=== PATIENT | male | born 1955 | race Caucasian/White ===

== ENCOUNTER 2018-10-31 13:27 | Emergency (ER) | payer OTHER, SELFPAY ==
[~2018-10-31] VITALS: Ht 180.3 cm; Wt 88.0 kg
[2018-10-31] MEDS ORDERED: CYCLOBENZAPRINE 10 MG TABLET. PO ONE (14:15)
--- NOTE | 2018-10-31 14:25 | PHYS DOC ---
Past Medical History Past Medical History: Hypothyroid, Other Additional Past Medical Histor: CHRONIC L LEG PAIN (KRISTINA PATTERSON APRN) Past Surgical History: No Surgical History (KRISTINA PATTERSON APRN) Smoking: Cigarettes, 1 Pack Per Day Additional Information: 1 PPD Alcohol Use: None Drug Use: None (KRISTINA PATTERSON APRN) Adult General Chief Complaint Chief Complaint: LOWER EXT PAIN HPI HPI Patient is a 63 year old male who presents with left groin pain that worsened last night but has been ongoing for 3 weeks. Patient took a Percocet last night in order to be able sleep however upon waking this morning his pain is still a 10 out of 10. He said it hurts to straighten the leg. Has not tried any treatment at home besides the Percocet. States that the pain is getting worse. (KRISTINA PATTERSON APRN) Review of Systems Review of Systems Constitutional: Denies fever or chills [] Eyes: Denies change in visual acuity, redness, or eye pain [] HENT: Denies nasal congestion or sore throat [] Respiratory: Denies cough or shortness of breath [] Cardiovascular: No additional information not addressed in HPI [] GI: Denies abdominal pain, nausea, vomiting, bloody stools or diarrhea [] : Denies dysuria or hematuria [] Musculoskeletal: Denies back pain or joint pain but left groin pain that radiates down the left leg. Integument: Denies rash or skin lesions [] Neurologic: Denies headache, focal weakness or sensory changes [] Endocrine: Denies polyuria or polydipsia [] Complete systems were reviewed and found to be within normal limits, except as documented in this note. (KRISTINA PATTERSON APRN) Current Medications Current Medications Current Medications Medications (Trade) Dose Ordered Sig/Darwin Start Time Stop Time Status Last Admin Dose Admin Acetaminophen/ Hydrocodone Bitart (Lortab 5/325) 1 tab 1X ONCE 10/31/18 15:30 10/31/18 15:31 DC 10/31/18 15:35 1 TAB Cyclobenzaprine HCl (Flexeril) 10 mg 1X ONCE 10/31/18 14:15 10/31/18 14:16 DC 10/31/18 14:01 10 MG Ketorolac Tromethamine (Toradol 30mg Vial) 30 mg 1X ONCE 10/31/18 15:30 10/31/18 15:31 DC 10/31/18 15:34 30 MG (KRISTINA LOZANO DO) Allergies Allergies Allergies Coded Allergies Type Severity Reaction Last Updated Verified No Known Drug Allergies 10/31/18 No (KRISTINA LOZANO DO) Physical Exam Physical Exam Constitutional: Well developed, well nourished, no acute distress, non-toxic appearance. [] HENT: Normocephalic, atraumatic, bilateral external ears normal, oropharynx moist, no oral exudates, nose normal. [] Eyes: PERRLA, EOMI, conjunctiva normal, no discharge. [] Neck: Normal range of motion, no tenderness, supple, no stridor. [] Cardiovascular:Heart rate regular rhythm, no murmur [] Lungs & Thorax: Bilateral breath sounds clear to auscultation [] Abdomen: Soft, no tenderness, no masses, no pulsatile masses. [] Skin: Warm, dry, no erythema, no rash. [] Back: No tenderness, no CVA tenderness. [] Extremities: No tenderness with exception of left groin pain that is tender to palpation, no cyanosis, no clubbing, ROM intact, no edema. [] Neurologic: Alert and oriented X 3, normal motor function, normal sensory function, no focal deficits noted. [] Psychologic: Affect normal, judgement normal, mood normal. [] (KRISTINA PATTERSON APRN) Current Patient Data Vital Signs Vital Signs Date Time Temp Pulse Resp B/P (MAP) Pulse Ox O2 Delivery O2 Flow Rate FiO2 10/31/18 16:28 52 16 106/63 (77) 94 Room Air 10/31/18 13:29 98.4 98.4 (KRISTINA LOZANO DO) EKG EKG [] (KRISTINA PATTERSON APRN) Radiology/Procedures Radiology/Procedures []PATIENT: DONAVAN AWADACCOUNT: [id number]#: [id number] : 1955 LOCATION: ER AGE: 63 SEX: M EXAM STATUS: REG ER ORD. PHYSICIAN: KRISTINA PATTERSON APRN REASON: left leg pain PROCEDURE: LEFT FEMUR XRAY AP and lateral left femur radiographs 10/31/2018 CLINICAL HISTORY: Left leg pain. 3 AP and 2 lateral digital radiographs of the left femur were obtained. No fracture or dislocation of the left femur is seen. Mild degenerative changes are seen involving the left hip. Mild degenerative changes are seen involving the left knee. IMPRESSION: No acute osseous abnormality is seen. Electronically signed by: Khris Bardales MD (10/31/2018 2:43 PM) [facility] PATIENT: DONAVAN AWAD ACCOUNT: [id number] : 1955 LOCATION: ER AGE: 63 SEX: M EXAM STATUS: REG ER ORD. PHYSICIAN: KRISTINA PATTERSON APRN REASON: r/o torsion/UPPER LT LEG PAIN PROCEDURE: TESTICULAR/SCROTUM Scrotal ultrasound 10/31/2018 CLINICAL HISTORY: Scrotal pain and swelling. TECHNIQUE: Using a combination of real-time ultrasound imaging and color-flow and pulse Doppler imaging techniques, duplex evaluation of the scrotal sac and its contents was performed. Multiple images were obtained. FINDINGS: Both testicles are within normal limits in size and echogenicity. The right testicle measures 4.5 x 2.9 x 2.5 cm in longitudinal, transverse, and AP dimensions. The left testicle measures 4.5 x 3.3 x 2.3 cm in size. No focal abnormality of either testicle is seen. Normal color-flow and pulse Doppler imaging to both testicles is noted. Both epididymal heads are within normal limits in size and echogenicity. There are small bilateral hydroceles. No varicocele is seen. IMPRESSION: Small bilateral hydroceles. Otherwise negative study. Electronically signed by: Khris Bardales MD (10/31/2018 3:57 PM) [facility] (KRISTINA PATTERSON APRN) Course & Med Decision Making Course & Med Decision Making Pertinent Labs and Imaging studies reviewed. (See chart for details) Discussed with patient. Will get Xray and give Flexeril to gauge improvement. Flexeril did not improve pain. States that he has had some intermittent L testicle pain for a couple of weeks. Will get ultrasound as well. Ultrasound is negative as well. Will discharge to follow up with [facility] at [facility] and send home with some pain medication. (KRISTINA PATTERSON APRN) Dragon Disclaimer Dragon Disclaimer This electronic medical record was generated, in whole or in part, using a voice recognition dictation system. (KRISTINA PATTERSON APRN) Departure Departure Impression: Primary Impression: Left leg pain Additional Impression: Bilateral hydrocele Disposition: HOME, SELF-CARE Condition: STABLE Referrals: KHANH MOFFETT II, MD Additional Instructions: Please follow up with Dr. Moffett. Come back to ER if you have any additional concerns. Scripts Hydrocodone/Apap 5-325 (NORCO 5-325 TABLET) 1 Each Tablet 1 TAB PO PRN Q6HRS PRN for PAIN for 5 Days, #12 TAB 0 Refills Prov: KRISTINA PATTERSON APRN 10/31/18 Attending Signature Attending Signature I have reviewed the PA/RECREATION ASSISTANT's note and plan of care. I was available for consultation as needed during the patient's visit in the emergency department. I agree with the clinical impression, plan, and disposition. (KRISTINA LOZANO DO) Problem Qualifiers KRISTINA PATTERSON APRN October 31, 2018 14:25 KRISTINA LOZANO DO November 02, 2018 01:40
--- NOTE | 2018-10-31 14:46 | RAD ---
AP and lateral left femur radiographs 10/31/2018 CLINICAL HISTORY: Left leg pain. 3 AP and 2 lateral digital radiographs of the left femur were obtained. No fracture or dislocation of the left femur is seen. Mild degenerative changes are seen involving the left hip. Mild degenerative changes are seen involving the left knee. IMPRESSION: No acute osseous abnormality is seen. Electronically signed by: Khris Bardales MD (10/31/2018 2:43 PM) [facility]
[2018-10-31] MEDS ORDERED: KETOROLAC 30 MG/ML VIAL. IM ONE (15:30)
[2018-10-31] MEDS ORDERED: HYDROcodone/APAP 5/325MG 1 TAB TABLET PO ONE (15:30)
--- NOTE | 2018-10-31 16:00 | RAD ---
Scrotal ultrasound 10/31/2018 CLINICAL HISTORY: Scrotal pain and swelling. TECHNIQUE: Using a combination of real-time ultrasound imaging and color-flow and pulse Doppler imaging techniques, duplex evaluation of the scrotal sac and its contents was performed. Multiple images were obtained. FINDINGS: Both testicles are within normal limits in size and echogenicity. The right testicle measures 4.5 x 2.9 x 2.5 cm in longitudinal, transverse, and AP dimensions. The left testicle measures 4.5 x 3.3 x 2.3 cm in size. No focal abnormality of either testicle is seen. Normal color-flow and pulse Doppler imaging to both testicles is noted. Both epididymal heads are within normal limits in size and echogenicity. There are small bilateral hydroceles. No varicocele is seen. IMPRESSION: Small bilateral hydroceles. Otherwise negative study. Electronically signed by: Khris Bardales MD (10/31/2018 3:57 PM) [facility]
[2018-10-31] MEDS ORDERED: HYDR-3164 PO (16:22)
[2018-10-31 16:28] VITALS: BP 106/63
[2018-11-02] MEDS ORDERED: B12/1TAB3 PO (13:20)
[2018-11-02] MEDS ORDERED: TEST5GEL TP (13:20)
== END 2018-10-31 16:34 | disposition home or self-care (01) ==
LOC: ER 13:27
DX: N43.2 Other hydrocele (principal); M79.605 Pain in left leg; E03.9 Hypothyroidism, unspecified; G89.29 Other chronic pain; F17.210 Nicotine dependence, cigarettes, uncomplicated
CPT/HCPCS: 73552; 76870; 96372; 99284; J1885

== ENCOUNTER → 2018-11-02 | Outpatient (CLI) | payer OTHER ==
[2018-10-31 16:28] VITALS: BP 106/63
[~2018-11-02] MED LIST: B12/1TAB3 PO; BUPIVACAINE MPF 0.5% 10 ML VIAL for KCIC. IM ONE; CONTRAST GIVEN. MC PRN; HYDR-3164 PO; IOHEXOL 300 MG/ML 50 ML VIAL. INT ART ONE; LIDOCAINE 1% Multi-Dose 20 ML VIAL. ID ONE; TEST5GEL TP; methylPREDNISolone SOD SUCC PF 40 MG/ML VIAL. IM ONE
--- NOTE | 2018-11-02 14:07 | KCIC ---
Therapeutic left hip injection using fluoroscopic guidance dated 11/02/2018: Indication: Left hip pain. hip pain.. Technique: The procedure was explained to the patient as were potential risks. All questions were answered. Informed written consent was obtained. The left hip was prepped and draped in the usual sterile manner. Following administration of local anesthetic, a 22-gauge spinal needle was advanced into the hip joint without difficulty, with care taken to avoid the vascular structures. Stylet was removed and following negative aspiration, a mixture of 5 cc Omnipaque-300, 2 cc (80 mg) Depo-Medrol and 8 cc 0.5% bupivacaine were injected without difficulty. Fluoroscopy demonstrates uniform and satisfactory distribution of the injection through the hip. The needle was removed. There was good hemostasis at the injection site. The patient left in stable condition without immediate complication. The patient was given postprocedural instructions, instructed to contact us or the emergency room if there are any complications. 13 seconds fluoroscopic time used. One image. Impression: Successful left hip therapeutic injection. Electronically signed by: Adolfo Bacon MD (11/02/2018 2:04 PM) [facility]
== END | disposition home or self-care (01) ==
LOC: KCIC 12:13
PROVIDERS: ATTEND Orthopaedic Surgery Sports Medicine
DX: M25.552 Pain in left hip (principal); F17.210 Nicotine dependence, cigarettes, uncomplicated
CPT/HCPCS: 20610; 77002; J2920; Q9967

== ENCOUNTER → 2019-02-10 | Outpatient (CLI) | payer OTHER ==
[~2019-02-10] MED LIST changes: -BUPIVACAINE MPF 0.5% 10 ML VIAL for KCIC. IM ONE; -CONTRAST GIVEN. MC PRN; -IOHEXOL 300 MG/ML 50 ML VIAL. INT ART ONE; -LIDOCAINE 1% Multi-Dose 20 ML VIAL. ID ONE; -methylPREDNISolone SOD SUCC PF 40 MG/ML VIAL. IM ONE
--- NOTE | 2019-02-10 16:00 | KCIC ---
LUMBAR SPINE WO CONTRAST History: Low back pain. Left leg and hip pain. Technique: Multiplanar, multi sequential MR imaging was performed of the lumbar spine. Comparison: None Findings: Normal vertebral body height and alignment. No fracture. Multilevel degenerative endplate changes most prominent L4-L5 and L5-S1. Conus terminates at the normal location. No evidence of nerve root clumping. L1-L2: No canal or neuroforaminal narrowing. L2-L3: Minimal posterior disc bulge. Mild facet arthropathy. No canal or neuroforaminal narrowing. L3-L4: Small posterior disc bulge. Mild to moderate facet arthropathy. No canal or neuroforaminal narrowing. L4-L5: Small posterior disc bulge. Moderate facet arthropathy. Bilateral subarticular recess narrowing with abutment of the descending L5 nerve roots. No canal narrowing. Mild bilateral neural foraminal narrowing. L5-S1: Small central disc protrusion. Slight abutment of the descending left S1 nerve roots within the subarticular recess. Moderate facet arthropathy. Mild neural foraminal narrowing. Impression: 1. Mild multilevel lumbar spondylosis most prominent L4-5 and L5-S1. No significant canal narrowing. 2. L4-L5 and L5-S1 subarticular recess narrowing with abutment of the descending bilateral L5 and left S1 nerve roots. Correlate for radiculopathy. Electronically signed by: Ta Jung DO (02/10/2019 3:57 PM) [facility]
== END | disposition home or self-care (01) ==
LOC: KCIC MRI 15:03
PROVIDERS: ATTEND Family Medicine
DX: M47.817 Spondylosis without myelopathy or radiculopathy, lumbosacral region (principal); M48.07 Spinal stenosis, lumbosacral region; M51.27 Other intervertebral disc displacement, lumbosacral region; M46.87 Other specified inflammatory spondylopathies, lumbosacral region
CPT/HCPCS: 72148

== ENCOUNTER → 2019-03-16 | Outpatient (CLI) | payer OTHER ==
[~2019-03-16] MED LIST changes: +ACET500T68 PO; +IBUP-1027 PO; +LEVO175T5 PO; +TEST200V3 IM; +[UNRECOGNIZED DRUG - OTHER] IM
--- NOTE | 2019-03-17 00:59 | PAIN ---
DATE OF SERVICE: 03/16/2019 INITIAL CONSULTATION FOR PAIN CLINIC CHIEF COMPLAINT: Low back and left lower extremity pain. HISTORY OF PRESENT ILLNESS: This is a 63-year-old male who presents with history of pain in the low back and left lower extremity for about 3 months, not a result of any specific injury or accident he is aware of, but getting worse over time with walking, standing, changing positions, much more noticeable on the left posterior gluteus, posterior lateral thigh, posterior calf, and into the foot as well as the lateral thighs, some in the anterior thigh as well on the left side. The patient reports no symptoms on the right side. The patient describes the pain as constant, stabbing, sharp, throbbing, shooting with numbness and tingling in the leg, burning and aching as well. The patient did have MRI scan of the lumbar spine showing mild multilevel lumbar spondylosis, most prominent at L4-L5 and L5-S1 with a small posterior disk bulge at L4-L5 with abutment of the descending L5 nerve roots. L5-S1 shows slight abutment of the descending left S1 nerve root within the subarticular recess and small central disk protrusion. The patient rates his disability from 0-10, 10 being the worst, 10 in all categories, except life support activities which is 5, 10 in self-care, sexual behavior, occupation, social activity, family and home responsibilities and recreational activities. The patient has tried stretching and strengthening exercises, also had some chiropractic treatment, which was not significantly helpful. He has had no other modalities at this time. PAST MEDICAL HISTORY: Significant for dizziness, arthritis, cigarette smoking, pernicious anemia, and hypothyroidism. PREVIOUS SURGERY: No previous surgery. CURRENT MEDICATIONS: Include vitamin B12, thyroid, testosterone, Lortab, Tylenol, and Motrin. ALLERGIES: The patient has no known drug allergies. FAMILY HISTORY: Significant for no major medical problems or conditions that he is aware of. SOCIAL HISTORY: The patient drinks about 2 alcoholic drinks a year. Smokes about half pack of cigarettes, has for about 10 years. Does not use any illegal, illicit or recreational drugs. He is , lives with his spouse, and lives locally in [place], [place]. REVIEW OF SYSTEMS: The patient's review of systems is positive for those items mentioned in history of present illness. All systems reviewed and otherwise negative. It is complete, full and well documented on the patient's chart. PHYSICAL EXAMINATION: VITAL SIGNS: The patient's blood pressure is 137/79, pulse 64, respirations 18, temperature 98.7 degrees Fahrenheit, height is 5 feet 10 inches, and weight is 193 pounds. GENERAL: The patient is awake, alert, oriented, appropriate, very pleasant demeanor. HEENT: Shows normocephalic, atraumatic. Extraocular movements are intact and symmetrical. Oral cavity: Mucous membranes moist and pink. Dentition is intact. NECK: Shows anterior throat supple without palpable lymphadenopathy noted. Swallow reflex symmetrical. CHEST: Shows normal on inspection. Breath sounds clear to auscultation bilaterally. HEART: Shows S1, S2 clear. No murmurs auscultated. ABDOMEN: Soft, nontender, and nondistended. No palpable organomegaly is noted. No rebound or guarding demonstrated. BACK: Shows spine grossly in the midline. Normal appearing thoracic kyphosis and lumbar lordotic curvature. The patient's lumbar paraspinous muscle shows symmetrical on inspection, on palpation shows some moderate tenderness diffusely, but without radiation. The patient shows good rotational motion of the lumbar spine both laterally greater than 10 degrees as well as extension greater than 10 degrees, forward flexion 45 degrees without significant increasing pain or disability and movement. EXTREMITIES: The patient's lower extremities show deep tendon reflexes 2+ in the patellar, 1+ tendo-calcaneus tendons. Motor exam is approximately 4 on a scale of 5 on the left with dorsiflexion, extension, quadriceps and hamstring flexion and 5/5 on the right. Peripheral pulses are 1+ posterior tibia. No peripheral edema is noted bilaterally. Lower extremities are warm and dry to touch, equal in color and appearance. Straight leg raise noted to be positive on the left at approximately 40 degrees with decrease in knee flexion. Right side is negative. Gaenslen's and Ronnie's maneuvers are negative bilaterally. The patient is able to stand, has difficulty trying to stand on his toes as he loses balance with putting all his weight on his left leg and walks with a slight shuffling gait. SKIN: The patient's skin shows warm and dry, good turgor. No edema. No sores, rashes or bruising throughout. IMPRESSION: 1. This is a 63-year-old male with approximately 3-month history of increasing pain, low back, left lower extremity in a radicular fashion in L4-L5 and L5-S1 dermatomal distribution. 2. Arthritis. 3. Cigarette smoking. PLAN: Options were discussed with the patient including conservative medical management, physical therapies, interventional techniques and he would like to pursue interventional techniques. We discussed a lumbar epidural steroid injection using description as well as anatomical models to describe the procedure. Risks were discussed. We will wait for preauthorization with patient's insurance provider as he would like to proceed with this. For his left L5S1 radiculopathy, we will plan on lumbar epidural steroid injection at L5-S1 level on return. RENATA WU MD DR: DAILY/capo JOB#: [id number] / [id number] VANNESA Mackay MD
== END | disposition home or self-care (01) ==
LOC: PNCL 09:57
PROVIDERS: ATTEND Anesthesiology
DX: M54.17 Radiculopathy, lumbosacral region (principal); F17.210 Nicotine dependence, cigarettes, uncomplicated; M13.88 Other specified arthritis, other site; F10.10 Alcohol abuse, uncomplicated; E03.9 Hypothyroidism, unspecified
CPT/HCPCS: G0463

== ENCOUNTER → 2019-03-23 | Outpatient (CLI) | payer OTHER ==
[~2019-03-23] MED LIST changes: +IOHEXOL 180 MG/ML 10 ML VIAL. ONE; +methylPREDNISolone ACETATE 40 MG/ML VIAL. ONE; +methylPREDNISolone ACETATE 80 MG/ML VIAL. ONE
--- NOTE | 2019-03-23 21:00 | PAIN ---
DATE OF SERVICE: 03/23/2019 PROGRESS NOTE FOR PAIN CLINIC DIAGNOSES: Lumbar radiculopathy with lumbar degenerative disk disease. HISTORY OF PRESENT ILLNESS: The patient is a 63-year-old male who returns for followup status post evaluation and preauthorization for lumbar epidural steroid injection. The patient does obtain that and would like to proceed today. The patient reports still significant pain in the low back, left lower extremity as was previously, posterior gluteus, posterior thigh, posterior calf, radiating, worse with walking, standing, changing positions. The patient reports his pain is a 10 on a scale of 10 at its worst over the past week 10 on average and 9 at its least tingling, burning, stabbing, described as aching, sharp, shooting in the leg on the left side, becoming more constant, more severe with activity. The patient reports it is awakening him about every 3 hours from sleep, reports no new motor or sensory deficits, no new bowel or bladder incontinence. PHYSICAL EXAMINATION: VITAL SIGNS: The patient's blood pressure is 129/87, pulse is 71, respirations 18, temperature is 98.6 degrees Fahrenheit, height is 5 feet 10 inches and weight is 195 pounds. GENERAL: The patient is awake, alert, oriented, appropriate, very pleasant demeanor. HEENT: Shows normocephalic, atraumatic. Extraocular movements are intact and symmetrical. Oral cavity: Mucous membranes are moist and pink. Dentition is intact. NECK: Shows anterior throat supple without palpable lymphadenopathy noted. Swallow reflex symmetrical. CHEST: Shows normal on inspection. Breath sounds clear to auscultation bilaterally. HEART: Shows S1, S2 clear. No murmurs auscultated. ABDOMEN: Soft, nontender, nondistended. No palpable organomegaly is noted. No rebound or guarding demonstrated. BACK: Shows spine grossly in the midline. Normal-appearing thoracic kyphosis, some minor flattening of lumbar lordotic curvature. Lumbar paraspinous muscle shows symmetrical on inspection, with palpation she has some moderate tenderness diffusely in the lower lumbar distribution only. The patient has good rotational motion of lumbar spine both laterally as well as with extension and flexion without significant difficulty. EXTREMITIES: Lower extremities show deep tendon reflexes at 2+ in the patellar, 1+ tendo-calcaneus tendons. Motor exam is approximately 4 on a scale of 5 on the left with dorsiflexion and extension, 5/5 on the right. Peripheral pulses are 1+ posterior tibia. No peripheral edema is noted bilaterally. IMPRESSION: Options were discussed with the patient. The patient's old chart was reviewed, his current medication regimen updated, current review of systems updated today as well. We will proceed with a lumbar epidural steroid injection today with fluoroscopic guidance. Risks were again discussed including, but not limited to bleeding, infection, possibility of epidural hematoma, subsequent neurological compromise, dural puncture, headaches, spinal cord and/or nerve damage, side effects of steroid medication and poor results regarding pain control. The patient understands and wished to proceed. The patient will return to clinic in approximately 2 weeks for followup. He was counseled as to return appointment, activity level and side effects to be aware of. DIAGNOSIS: Lumbar radiculopathy with lumbar degenerative disk disease. PROCEDURE: Lumbar epidural steroid injection, translaminar approach at L5-S1 level using C-arm fluoroscopic guidance under sterile prep and drape using local anesthetic. MEDICATION INJECTED: Total of 120 mg Depo-Medrol plus 10 mL of preservative-free normal saline and 2 mL of contrast. CONDITION AT DISCHARGE: Stable. The patient tolerated the procedure well, had no complications. RENATA WU MD DR: DAILY/capo JOB#: [id number] / [id number]
== END ==
LOC: PNCL 09:30
PROVIDERS: ATTEND Anesthesiology
DX: M51.16 Intervertebral disc disorders with radiculopathy, lumbar region (principal)
CPT/HCPCS: 62323; J1030; J1040; Q9965

== ENCOUNTER → 2019-04-06 | Outpatient (CLI) | payer OTHER ==
--- NOTE | 2019-04-07 00:45 | PAIN ---
DATE OF SERVICE: 04/06/2019 PROGRESS NOTE FOR PAIN CLINIC DIAGNOSIS: Lumbar radiculopathy with lumbar degenerative disk disease. HISTORY OF PRESENT ILLNESS: The patient is a 63-year-old male who returns for followup status post lumbar epidural steroid injection x 1. The patient reports about 60% improvement in low back and left lower extremity pain. The patient reports the pain is returning now and for the first few weeks, it was doing much better. The patient reports no new motor or sensory deficits, no new bowel or bladder incontinence or other complaints. He reports pain in the low back, left lower extremity, posterior gluteus, posterolateral thigh, lateral anterior thigh, lateral posterior calf, tingling, burning, and radiating, becoming more constant with time, walking, standing, changing positions, especially with putting pressure on his left leg when seated. The patient reports that pain is 6 on a scale of 10 at its worst, 5 on average, 5 at its least and is a 5 today. The patient reports no new motor or sensory deficits, no new bowel or bladder incontinence. He has been sleeping better, but it is still awakening him from sleep about every 4 hours. PHYSICAL EXAMINATION: VITAL SIGNS: The patient's blood pressure is 151/91, pulse 64, respirations 18, temperature 98.2 degrees Fahrenheit, height is 5 feet 10 inches, weight is 198 pounds. GENERAL: The patient is awake, alert, oriented, appropriate, very pleasant demeanor. HEENT: Shows normocephalic, atraumatic. Extraocular movements are intact and symmetrical. Oral cavity: Mucous membranes moist and pink. Dentition is intact. NECK: Shows anterior throat supple without palpable lymphadenopathy noted. Swallow reflex is symmetrical. CHEST: Shows normal on inspection. The patient's breath sounds are clear to auscultation bilaterally. HEART: Shows S1, S2 clear. No murmurs auscultated. ABDOMEN: Soft, nontender, nondistended. No palpable organomegaly is noted. No rebound or guarding demonstrated. BACK: Shows spine grossly in the midline. Normal appearing thoracic kyphosis and some slight flattening of lumbar lordotic curvature. Lumbar paraspinous muscle shows symmetrical on inspection, with palpation shows some moderate tenderness diffusely, but only diffusely without significant radiation. EXTREMITIES: The patient's lower extremities show deep tendon reflexes at 2+ in the patellar and tendo calcaneus tendons. Motor exam is approximately 4 on a scale of 5, still on the left with dorsiflexion and extension, 5/5 on the right, but intact. Peripheral pulses are 1+ posterior tibial and equal bilaterally. No peripheral edema is noted. Options were discussed with the patient. The patient's old chart was reviewed, his current medication regimen updated. Current review of systems updated today as well. We will proceed with a lumbar epidural steroid injection today with fluoroscopic guidance. Risks were again discussed including, but not limited to bleeding, infection, possibility of epidural hematoma, subsequent neurologic compromise, dural puncture, headaches, spinal cord and/or nerve damage, side effects of steroid medication and poor results regarding pain control. The patient understands and wished to proceed. The patient will return to clinic in approximately 2 weeks for followup. He was counseled as to return appointment, activity level and side effects to be aware of. DIAGNOSIS: Lumbar radiculopathy with lumbar degenerative disk disease. PROCEDURE: Lumbar epidural steroid injection, translaminar approach, L5-S1 level using C-arm fluoroscopic guidance under sterile prep and drape using local anesthetic. MEDICATION INJECTED: A total of 120 mg Depo-Medrol plus 10 mL of preservative-free normal saline and 2 mL of contrast. CONDITION AT DISCHARGE: Stable. The patient tolerated the procedure well, had no complications. RENATA WU MD DR: DAILY/capo JOB#: [id number] / [id number]
== END ==
LOC: PNCL 12:44
PROVIDERS: ATTEND Anesthesiology
DX: M51.16 Intervertebral disc disorders with radiculopathy, lumbar region (principal)
CPT/HCPCS: 62323; J1030; J1040; Q9965

== ENCOUNTER → 2019-04-20 | Outpatient (CLI) | payer OTHER ==
--- NOTE | 2019-04-20 15:01 | PAIN ---
DATE OF SERVICE: 04/20/2019 PROGRESS NOTE FOR PAIN CLINIC DIAGNOSES: Lumbar radiculopathy with lumbar degenerative disk disease. HISTORY OF PRESENT ILLNESS: The patient is a 63-year-old male who returns for followup status post lumbar epidural steroid injections x 2. The patient reports about 60% improvement overall after the first injection, but only about 10% after the last injection, still about 50% overall. The patient reports still significant pain in the low back, left lower extremity as it was previously, posterior gluteus, posterior thigh, lateral thigh, and posterior calf. The patient reports it is burning, aching, shooting, some tightness with stabbing pain in the back as well. The patient reports it is a 6 on a scale of 10 at its worst over the past week, 5 on average, 5 at its least and is a 5 today. The patient reports no new motor or sensory deficits. Still better with sitting or lying down; does not awaken him from sleep at night; worse with walking, standing, changing positions. The patient reports no bowel or bladder incontinence, no new motor or sensory deficits. PHYSICAL EXAMINATION: VITAL SIGNS: The patient's blood pressure 144/94, pulse 70, respirations 18, temperature 98.2 degrees Fahrenheit, height is 5 feet 10 inches, weight is 199 pounds. GENERAL: The patient is awake, alert, oriented, appropriate, very pleasant demeanor. HEENT: Shows normocephalic, atraumatic. Extraocular movements are intact and symmetrical. Oral cavity shows mucous membranes moist and pink. Dentition is intact. NECK: Shows anterior throat supple without palpable lymphadenopathy noted. Swallow reflex symmetrical. CHEST: Shows normal on inspection. Breath sounds clear to auscultation bilaterally. HEART: Shows S1, S2 clear. No murmurs auscultated. ABDOMEN: Soft, nontender, nondistended. BACK: Shows spine grossly in the midline. Lumbar paraspinous muscle shows symmetrical on inspection, on palpation shows some moderate tenderness diffusely bilaterally going diffusely without radiation. The patient has full rotational motion of lumbar spine, both laterally as well as extension and flexion without difficulty. EXTREMITIES: Lower extremities show deep tendon reflexes 2+ in the patellar, 1+ tendo-calcaneus tendons. Motor exam is approximately 4 on a scale of 5 with left foot dorsiflexion and extension, 5/5 on the right. Peripheral pulses are 1+ posterior tibia. No peripheral edema is noted bilaterally. Options were discussed with the patient. The patient's old chart was reviewed as his current medication regimen updated. Current review of systems updated today as well. We will proceed with a third in the series of lumbar epidural steroid injections today with fluoroscopic guidance. Risks were again discussed including, but not limited to bleeding, infection, possibility of epidural hematoma, subsequent neurological compromise, dural puncture, headaches, spinal cord and/or nerve damage, side effects of steroid medication and poor results regarding pain control. The patient understands and wished to proceed. The patient will return to clinic in approximately 2 weeks for followup. He was counseled on return appointment, activity level, and side effects to be aware of. DIAGNOSIS: Lumbar radiculopathy with lumbar degenerative disk disease. PROCEDURE: Lumbar epidural steroid injection, translaminar approach at the L5-S1 level using C-arm fluoroscopic guidance under sterile prep and drape using local anesthetic. MEDICATION INJECTED: A total of 120 mg Depo-Medrol plus 10 mL of preservative-free normal saline and 2 mL of contrast. CONDITION AT DISCHARGE: Stable. The patient tolerated the procedure well, had no complications. RENATA UW MD DR: DAILY/capo JOB#: [id number] / [id number]
== END ==
LOC: PNCL 13:07
PROVIDERS: ATTEND Anesthesiology
DX: M51.16 Intervertebral disc disorders with radiculopathy, lumbar region (principal)
CPT/HCPCS: 62323; J1030; J1040; Q9965

== ENCOUNTER → 2019-05-16 | Outpatient (CLI) | payer OTHER ==
[~2019-05-16] MED LIST changes: +AMOX1TAB11 PO; +AMOX500C PO; +BECL10.6 IH; +BENZ100C PO; +DOCU-109 PO; -IOHEXOL 180 MG/ML 10 ML VIAL. ONE; +METH-38 PO; -methylPREDNISolone ACETATE 40 MG/ML VIAL. ONE; -methylPREDNISolone ACETATE 80 MG/ML VIAL. ONE
[2019-05-16 15:42] LABS: BASO # 0.1 x10^3/uL (0.0-0.2); BASO % 1 % (0-3); EOS % 1 % (0-3); HEMATOCRIT 52.4 % (39.0-53.0); HEMOGLOBIN 17.8 g/dL (13.0-17.5); LYMPH # 1.4 x10^3/uL (1.0-4.8); LYMPH % 16 % (24-48); MEAN CORPUSCULAR HEMOGLOBIN 30 pg (25-35); MEAN CORPUSCULAR HGB CONC 34 g/dL (31-37); MEAN CORPUSCULAR VOLUME 89 fL (79-100); MONO # 1.5 x10^3/uL (0.0-1.1); MONO % 17 % (0-9); NEUT # 5.9 x10^3/uL (1.8-7.7); NEUT % 66 % (31-73); PLATELET COUNT 207 x10^3/uL (140-400); RED BLOOD COUNT 5.89 x10^6/uL (4.30-5.70); RED CELL DISTRIBUTION WIDTH 16.2 % (11.5-14.5)
[2019-05-16 16:17] LABS: ALBUMIN 3.5 g/dL (3.4-5.0); ALBUMIN/GLOBULIN RATIO 0.7 (1.0-1.7); CALCIUM 9.1 mg/dL (8.5-10.1); CREATININE 1.2 mg/dL (0.7-1.3); GFR 60.8; POTASSIUM 4.2 mmol/L (3.5-5.1); TOTAL BILIRUBIN 0.8 mg/dL (0.2-1.0); TOTAL PROTEIN 8.4 g/dL (6.4-8.2)
[2019-05-16 16:56] LABS: % ATYL 7 % (0-0); % BANDS 8 % (0-9); % LYMPHS 8 % (24-48); % METAS 1 % (0-0); % MONOS 11 % (0-10); % SEGS 65 % (35-66); PLT ESTIMATE ADEQUATE (ADEQUATE)
== END ==
LOC: EDSTATUS 12:45 → SURGPAT 14:27
PROVIDERS: ATTEND Neurological Surgery
DX: Z01.812 Encounter for preprocedural laboratory examination (principal); M47.26 Other spondylosis with radiculopathy, lumbar region
CPT/HCPCS: 36415; 80053; 85007; 85025; 87641

== ENCOUNTER 2019-05-26 06:45 | Day surgery (SDC) | payer OTHER ==
--- NOTE | 2019-05-25 17:45 | PREOP HP ---
DATE OF SERVICE: 05/26/2019 PREOPERATIVE HISTORY AND PHYSICAL DATE OF SURGERY: 05/26/2019. HISTORY OF PRESENT ILLNESS: The patient is a pleasant 64-year-old, who has difficulty with back and severe pain in the left lateral thigh and leg as well as numbness in his left testicle. The problem began in October with no inciting event. He rates his pain as 12/10 today. The pain is constant. He gets minimal relief with lying down. He did have three epidural steroid injections, which he says helped some with his back pain, but the leg pain remains. PAST MEDICAL HISTORY: Anemia and thyroid disease. PAST SURGICAL HISTORY: No surgical history documented. SOCIAL HISTORY: Self-employed. . Smokes a half a pack per day and has for 10 years. Drinks alcohol 1-2 times per year. ALLERGIES: No known drug allergies. CURRENT MEDICATIONS: [place], levothyroxine, cyanocobalamin, and testosterone. REVIEW OF SYSTEMS: A 12-point review of systems was obtained and is noncontributory except for that mentioned above. PHYSICAL EXAMINATION: NEUROSURGERY EXAMINATION: GENERAL APPEARANCE: Alert, pleasant, in no acute distress. HEENT: Head is normocephalic and atraumatic. SKIN: Warm and dry. MUSCULOSKELETAL: Lumbar paraspinal muscle bulk is normal, restricted range of motion of lumbar spine, [id number] tenderness of the lumbar spine with palpation, normal range of motion of the lower extremities bilaterally. EXTREMITIES: No clubbing, cyanosis or edema. NEUROLOGIC: Alert and oriented x 3, normal recent and remote memory. Strength 5/5 in bilateral lower extremities, sensory was intact to light touch in lower extremities bilaterally, Reflexes are present and symmetric in bilateral lower extremities, negative straight leg raising bilaterally, normal gait. IMAGING DATA: I reviewed a lumbar MRI scan where I saw multilevel lumbar spondylosis that is most significant at L4-L5 and L5-S1. At L4-L5, there is a moderate facet arthropathy and abutment of the descending L5 nerve root. ASSESSMENT/ PLAN: He has severe radicular symptoms. He has not improved with three lumbar epidural steroid injections or chiropractic treatment. I recommended a lumbar microdecompression at L4-L5 on the left. We spoke about surgery including the technique, risks, and expected postoperative course. He understands. He would like to go ahead. We will make the arrangements. ONELIA Jayda LOPEZ MD DR: Juana JOB#: [id number] / [id number] JOLIE
[~2019-05-26] VITALS: Ht 177.8 cm; Wt 89.8 kg
[~2019-05-26 06:45] MED LIST changes: +BACITRACIN 50,000 UNIT in IV NORMAL SALINE 1000ML BAG 1,000 ML IRR ONE; -DOCU-109 PO; -METH-38 PO
[2019-05-26] MEDS ORDERED: IV RINGERS,LACTATED 1000ML 1,000 ML IV SCH (07:00)
[2019-05-26] MEDS ORDERED: ONDANSETRON PF 4 MG/2 ML VIAL. IV PRN (07:00)
[2019-05-26] MEDS ORDERED: MORPHINE SULFATE 2 MG/ML VIAL. IV PRN (07:00)
[2019-05-26] MEDS ORDERED: HYDROmorphone 2 MG/ML VIAL IV PRN (07:00)
[2019-05-26] MEDS ORDERED: PROCHLORPERAZINE 10 MG/2 ML VIAL. IV PRN (07:00)
[2019-05-26] MEDS ORDERED: fentaNYL PF VIAL 100 MCG/2 ML VIAL IV PRN (07:00)
[2019-05-26] MEDS ORDERED: LIDOCAINE 1% PF 2 ML VIAL. ID PRN (07:00)
[2019-05-26] MEDS ORDERED: GELATIN SPONGE SIZE 100. ONE (07:24)
[2019-05-26] MEDS ORDERED: THROMBIN TOPICAL 20,000 UNIT SPRAY.SYRN KIT TP ONE (07:24)
[2019-05-26] MEDS ORDERED: KETOROLAC 60 MG/2 ML VIAL. ONE (07:24)
[2019-05-26] MEDS ORDERED: BUPIVACAINE-EPI 0.5%-1:200000 MPF 30 ML VIAL. INJ ONE (08:00)
[2019-05-26] MEDS ORDERED: ROCURONIUM 50 MG/5 ML VIAL. ONE (08:31)
[2019-05-26] MEDS ORDERED: MIDAZOLAM HCL/PF 2 MG/2 ML VIAL. ONE (08:31)
[2019-05-26] MEDS ORDERED: REMIFENTANIL 2 MG VIAL. IV ONE (08:32)
[2019-05-26] MEDS ORDERED: fentaNYL PF VIAL 250 MCG/5 ML VIAL ONE (08:32)
[2019-05-26] MEDS ORDERED: 0.9 % SODIUM CHLORIDE 20 ML VIAL. IJ ONE ×2 (08:37)
[2019-05-26] MEDS ORDERED: oxyCODONE/APAP 5/325 1 TAB TABLET PO ONE ×2 (09:30)
[2019-05-26] MEDS ORDERED: PHENYLEPHRINE in 0.9% NACL PF 1 MG/10 ML SYRINGE. IV ONE (10:14)
[2019-05-26] MEDS ORDERED: NEOSTIGMINE METHYLSULFATE 5 MG/5 ML SYRINGE. ONE (10:33)
[2019-05-26] MEDS ORDERED: DESFLURANE > 120 MINUTES IH ONE (10:33)
[2019-05-26] MEDS ORDERED: GLYCOPYRROLATE 1 MG/5 ML VIAL. ONE (10:33)
[2019-05-26] MEDS ORDERED: HYDR-3164 PO (10:58)
[2019-05-26] MEDS ORDERED: DOCU-109 PO (10:58)
[2019-05-26] MEDS ORDERED: METH-38 PO (10:58)
--- NOTE | 2019-05-26 11:00 | DISCH ---
DISCHARGE INSTRUCTIONS Condition on Discharge Condition on Discharge: Stable Activity After Discharge Activity Instructions for Disc: Activity as tolerated, Avoid exertion Bathing Instructions: Shower-keep dressing dry Lifting Instructions after Dis: No heavy lifting, No pulling or pushing, Do not lift >10 pounds Diet after Discharge Additional Diet Restrictions: resume home diet Wound Incision Care Wound/Incision Care: Ice to area for comfort Other wound/incision instructi: may dc dressing in 48 hours if dry then may shower, no soaking Contacting the DRAngelica after DC Call your doctor for: Concerns you may have Follow-Up Follow up with: Dr. Lopez's nurse in 2 weeks [phone] ONELIA LOPEZ MD May 26, 2019 11:00
--- NOTE | 2019-05-26 11:13 | OP ---
DATE OF SURGERY: 05/26/2019 PREOPERATIVE DIAGNOSIS: Lateral recess stenosis with lumbar radiculopathy, L4-L5, left. POSTOPERATIVE DIAGNOSIS: Lateral recess stenosis and bulging disc with lumbar radiculopathy, L4-L5, left. OPERATION PERFORMED: Hemilaminotomy and microdiscectomy, L4-L5, left. The operation was done with EMG monitoring, fluoroscopy, microscopic dissection, SSEP monitoring. SURGEON: Paul Lopez M.D. CONE WORKER: ABDI Marrero assisted with the surgery. She assisted with the exposure, the microdecompression and discectomy as well as the closure. OPERATIVE INDICATIONS: The patient is a pleasant 64-year-old man who developed intractable back and left leg pain, which failed conservative measures. On imaging studies, he has the above-mentioned findings and I recommended lumbar microsurgery after he failed extensive amount of conservative therapy. He understood the surgery and the risks, technique and expected postoperative course and wished to go ahead. DESCRIPTION OF PROCEDURE: Under general endotracheal anesthesia, the patient was positioned prone on the Jesse table. Lumbar region prepped and draped in standard fashion. SIRENA hose and AV impulse boots were applied for DVT prophylaxis. The microscope was draped. Fluoroscopy was draped and brought into the field. Monitoring was established. Ancef 2 g was given less than 1 hour prior to initiation of the surgery. Using fluoroscopic guidance, a midline incision was made directly over the L4-L5 interspace, dissected down through skin and subcutaneous tissue, reflected the paraspinal muscles and placed a Lamoure micro disc retractor, brought in the microscope. Using the high speed air drill, I burred down a generous hemilaminotomy. I did confirm my position fluoroscopically. I peeled away the thickened ligamentum flavum and began to drill and thin the bone further laterally and exposed the takeoff of the L5 root and performed a partial foraminotomy very gently as it moved inferiorly again performing a partial foraminotomy. I retracted the dura and root medially. The disc was very soft and bulging back significantly and I incised the annulus and performed discectomy with pituitary rongeurs. As I removed the disc, the region flattened and became firm. I irrigated copiously when I completed my discectomy, then I explored carefully, the roots were quite free. Hemostasis was excellent. I irrigated and then I closed the wound in layers with absorbable sutures. The skin was closed with 4-0 subcuticular stitch. The operation went very well. I was quite pleased with the surgery. PAUL LOPEZ MD DR: Juana JOB#: [id number] / [id number] JOLIE
[2019-05-26] MEDS: fentaNYL PF VIAL 100 MCG/2 ML VIAL IV PRN ×2 (11:45→12:08)
[2019-05-26] MEDS ORDERED: fentaNYL PF VIAL 100 MCG/2 ML VIAL ONE (11:46)
[2019-05-26 12:59] VITALS: BP 150/86
--- NOTE | 2019-05-30 14:07 | PATHOLOGY ---
[facility] Accession Number: [id number] . 01 Material submitted: . vertebral column - LUMBAR DECOMPRESSION AND DISC . 01 Clinical history: . Lumbar spondylosis, radiculopathy . 02 Diagnosis: Segments of fibrocartilaginous tissue, lumbar decompression and disc: - Degenerative changes. . (JPM:geovanny; 05/30/2019) QMS 05/30/2019 0944 Local . 02 Comment: There is no evidence of an acute inflammatory process or malignancy. . 02 Electronically signed: . Dav Ramsey MD, Pathologist NPI- [id number] . 01 Gross description: . Received in formalin labeled "Angela, Renato, lumbar decompression and disc," are several pieces of glistening, fibrous tissue measuring 4.5 x 2.7 x 1.3 cm in aggregate dimensions, containing small fragments of possible bone. The tissue is submitted in A1 in cassette A1, following decalcification. (TSD; 05/26/2019) TOB/TOB 05/26/2019 205 Local . 02 Pathologist provided ICD-10: M51.36 . 02 CPT . 766581, [id number] Specimen Comment: A courtesy copy of this report has been sent to [phone], [phone] Specimen Comment: [id number] Specimen Comment: Report sent to / DR NARANJO Performed at: 01 [facility] [address], [place] [id number] MD Gurpreet Bolanos MD Phone: [phone] Performed at: 02 [facility] [address], [place] [id number] MD Dav Ramsey MD Phone: [phone]
== END 2019-05-26 14:00 | disposition home or self-care (01) ==
LOC: SURG 06:45
PROVIDERS: ATTEND Neurological Surgery
DX: M51.16 Intervertebral disc disorders with radiculopathy, lumbar region (principal); M48.061 Spinal stenosis, lumbar region without neurogenic claudication; M47.816 Spondylosis without myelopathy or radiculopathy, lumbar region; D64.9 Anemia, unspecified; E03.9 Hypothyroidism, unspecified; Z72.89 Other problems related to lifestyle; Z87.891 Personal history of nicotine dependence
CPT/HCPCS: 63030; 88304; 88311; 97116; 97162; 97530; A7015; J0696; J1885; J2250; J2370; J2710; J3010; J3490; J7030; J7120; 76000

== ENCOUNTER → 2019-08-17 | Outpatient (CLI) | payer OTHER ==
[~2019-08-17] MED LIST changes: -BACITRACIN 50,000 UNIT in IV NORMAL SALINE 1000ML BAG 1,000 ML IRR ONE; +DOCU-109 PO; +GADOTERATE 5 MMOL/10ML VIAL. IVP ONE; +METH-38 PO
--- NOTE | 2019-08-17 13:26 | KCIC ---
LUMBAR SPINE WO/W CONTRAST Date: 08/17/2019 11:00 AM Indication: Left lower extremity burning sensation. Surgery in May 2019 Comparison: Preoperative MRI 02/10/2019. Technique: Multi-planar multi-weighted magnetic resonance imaging of the lumbar spine was performed with and without intravenous contrast using the standard lumbar spine protocol. 16 cc Dotarem contrast was administered intravenously during the examination. FINDINGS: Postsurgical changes of left hemilaminectomy at L4-5. Expected postsurgical enhancement in the laminectomy defect and along the operative pathway. The lumbar spine is normally aligned. No acute fracture. Mild to moderate multilevel degenerative disc desiccation and disc height loss. Degenerative endplate edema at L4-5 and L5-S1. Multilevel fatty degenerative endplate changes. The conus terminates at a normal level. No abnormal signal is seen within the visualized distal spinal cord. No clumping of intrathecal nerve roots. No soft tissue abnormality in the visualized abdomen or pelvis. T12-L1: No disc bulge. No facet arthropathy. No significant spinal stenosis or neural foraminal narrowing. L1-L2: No disc bulge. No facet arthropathy. No significant spinal stenosis or neural foraminal narrowing. L2-L3: Disc bulge. Mild facet arthropathy. No significant spinal stenosis or neural foraminal narrowing. L3-L4: Disc bulge. Mild facet arthropathy. No significant spinal stenosis or neural foraminal narrowing. Mild left lateral recess narrowing. L4-L5: Left hemilaminectomy. Mild enhancement in the left lateral recess, likely postsurgical change. No significant spinal canal stenosis. Mild bilateral neural foraminal narrowing. L5-S1: Disc bulge with left far lateral protrusion. Mild facet arthropathy. No significant spinal stenosis. Mild bilateral neural foraminal narrowing. Mild left lateral recess narrowing. IMPRESSION: Post surgical changes of interval L4-5 hemilaminectomy. Mild lumbar spondylosis, as detailed level by level above. Electronically signed by: Yvan Garcia MD (08/17/2019 1:23 PM) [id number]
== END | disposition home or self-care (01) ==
LOC: KCIC MRI 10:44
PROVIDERS: ATTEND Neurological Surgery
DX: M51.17 Intervertebral disc disorders with radiculopathy, lumbosacral region (principal); M47.26 Other spondylosis with radiculopathy, lumbar region; M51.16 Intervertebral disc disorders with radiculopathy, lumbar region
CPT/HCPCS: 72158; 82565; A9575

== ENCOUNTER → 2019-09-01 | Outpatient (CLI) | payer OTHER ==
[~2019-09-01] MED LIST changes: -GADOTERATE 5 MMOL/10ML VIAL. IVP ONE; +IOHEXOL 240 MG/ML 50ML VIAL. ONE; +methylPREDNISolone ACETATE 40 MG/ML VIAL. ONE; +methylPREDNISolone ACETATE 80 MG/ML VIAL. ONE
--- NOTE | 2019-09-02 01:16 | PAIN ---
DATE OF SERVICE: 09/01/2019 PROGRESS NOTE FOR PAIN CLINIC DIAGNOSES: Lumbar radiculopathy with lumbar degenerative disk disease. HISTORY OF PRESENT ILLNESS: The patient is a 64-year-old male who returns for followup status post lumbar epidural steroid injections x 3, seen most recently on 04/20/2019. The patient has since had a decompressive lumbar laminectomy at L4-L5 since his last visit, which did well initially, but then the pain returned fairly significantly and fairly quickly about a month after the surgery, which is still in the low back and the left lower extremity, posterior gluteus, posterior thigh, posterior calf with significant radiation, but without any loss of motor function. The patient reports he has been favoring his leg, though. He is getting quite fatigued on the left side with ambulation, standing, walking, and changing positions. The patient reports it is a 10 on a scale of 10 at all times over the past week at least, worst and its average and is a 10 today. The patient reports no new motor or sensory deficits, describes the pain as burning and stabbing in the low back, becoming more constant in the left lower extremity, mostly in the posterior gluteus, lateral thigh, posterior calf and sharp in the back itself. The patient reports no new motor or sensory deficits, but is having difficulty with daily activities, standing, walking, changing positions, awakening him from sleep about every 3 hours. PHYSICAL EXAMINATION: VITAL SIGNS: The patient's blood pressure is 145/82, pulse 63, respirations 18, temperature 98.2 degrees Fahrenheit, weight is 192 pounds. GENERAL: The patient is awake, alert, oriented, appropriate, very pleasant demeanor. HEENT: Shows normocephalic, atraumatic. Extraocular movements are intact and symmetrical. Oral cavity: Mucous membranes moist and pink. Dentition is intact. NECK: Shows anterior throat supple without palpable lymphadenopathy noted. Swallow reflex symmetrical. CHEST: Shows normal on inspection. Breath sounds are clear bilaterally. HEART: Shows S1, S2 clear. No murmurs auscultated. ABDOMEN: Soft, nontender, nondistended. No palpable organomegaly is noted. No rebound or guarding demonstrated. BACK: Shows spine grossly in the midline. Normal appearing thoracic kyphosis and some flattening of lumbar lordotic curvature. Well-healed surgical scar noted. Lumbar paraspinous muscle shows symmetrical on inspection, on palpation shows some moderate tenderness diffusely bilaterally going diffusely without significant radiation. The patient has good rotational motion of lumbar spine, both laterally as well as extension and flexion without significant difficulty. EXTREMITIES: Lower extremities show deep tendon reflexes at 2+ in the patellar, 1+ tendo-calcaneus tendons. Motor exam is approximately 4 on a scale of 5 with left dorsiflexion, extension, 5/5 on the right. Peripheral pulses are 1+ posterior tibia. No peripheral edema is noted bilaterally. PLAN: Options were discussed with the patient. The patient's old chart was reviewed as his current medication regimen updated. Current review of systems updated today as well. We will proceed with a lumbar epidural steroid injection. This is the first in this series today with fluoroscopic guidance. Risks were again discussed including, but not limited to bleeding, infection, possibility of epidural hematoma, subsequent neurological compromise, dural puncture, headaches, spinal cord and/or nerve damage, side effects of steroid medication and poor results regarding pain control. The patient understands and wished to proceed. The patient will return to the clinic in approximately 2 weeks for followup. He was counseled on return appointment, activity level and side effects to be aware of. DIAGNOSES: Lumbar radiculopathy with lumbar degenerative disk disease, post-lumbar laminectomy syndrome. PROCEDURE: Lumbar epidural steroid injection with translaminar approach at L5-S1 level using C-arm fluoroscopic guidance under sterile prep and drape using local anesthetic. MEDICATION INJECTED: A total of 120 mg of Depo-Medrol plus 10 mL of preservative-free normal saline and 2 mL of contrast. CONDITION AT DISCHARGE: Stable. The patient tolerated procedure well and had no complications. RENATA WU MD DR: DAILY/capo JOB#: [id number] / [id number]
== END ==
LOC: PNCL 14:13
PROVIDERS: ATTEND Anesthesiology
DX: M51.16 Intervertebral disc disorders with radiculopathy, lumbar region (principal); M96.1 Postlaminectomy syndrome, not elsewhere classified
CPT/HCPCS: 62323; J1030; J1040; Q9966

== ENCOUNTER → 2019-09-19 | Outpatient (CLI) | payer OTHER ==
[~2019-09-19] MED LIST changes: +BUPIVACAINE MPF 0.25% 10 ML VIAL. ONE; +IOHEXOL 180 MG/ML 10 ML VIAL. ONE; -IOHEXOL 240 MG/ML 50ML VIAL. ONE; -methylPREDNISolone ACETATE 40 MG/ML VIAL. ONE
--- NOTE | 2019-09-19 15:26 | PAIN ---
DATE OF SERVICE: 09/19/2019 PROGRESS NOTE FOR PAIN CLINIC DIAGNOSES: 1. Lumbar radiculopathy with lumbar degenerative disk disease and lumbar post-laminectomy syndrome. 2. Left hip joint pain with primary osteoarthritis. HISTORY OF PRESENT ILLNESS: The patient is a 64-year-old male who returns for followup status post lumbar epidural steroid injection 09/01/2019. The patient reports he did quite well with this with approximately 75% improvement, was much better the first few days near 100%, but then the pain returned, but it is still much better than it was. The patient reports that his hip is his main complaint today and we discussed this with him last time as he has had some films showing some arthritis in the left hip, but only mild to moderate. The patient reports he has had the hip joint injection in the past, did very well with this and we got him preauthorized for that today. The patient reports it feels like it is "on fire" in the left hip and radiating into the left groin with weightbearing, standing and walking. He is favoring his left leg fairly significantly with ambulation. The patient reports the pain is a 9 on a scale of 10 at its worst in the past week, 8 on average, 8 at its least and is an 8 today. The patient reports it is sharp, shooting, burning, stabbing, radiating, constant, severe, unbearable at times, again with weightbearing with radiation into the left groin, becoming more noticeable. The patient reports it awakens him from sleep at least once or twice at night, but not every night. No new motor or sensory deficits, no new bowel or bladder incontinence or other complaints. PHYSICAL EXAMINATION: VITAL SIGNS: The patient's blood pressure is 151/100, pulse 71, respirations 16, temperature 98.2 degrees Fahrenheit, height is 5 feet 10 inches and weight is 190 pounds. GENERAL: The patient is awake, alert, oriented, appropriate, very pleasant demeanor. HEENT: Head shows normocephalic, atraumatic. Extraocular movements are intact and symmetrical. Oral cavity: Mucous membranes moist and pink. Dentition is intact. NECK: Shows anterior throat supple without palpable lymphadenopathy noted. Swallow reflex symmetrical. CHEST: Shows normal on inspection. Breath sounds clear to auscultation bilaterally. HEART: Shows S1, S2 clear. No murmurs auscultated. ABDOMEN: Soft, nontender, nondistended. BACK: Shows spine grossly in the midline. Normal-appearing thoracic kyphosis and some minor flattening of lumbar lordotic curvature with well-healed surgical scarring noted. Lumbar paraspinous muscle shows symmetrical on inspection, on palpation shows some moderate tenderness diffusely bilaterally, but only diffusely without significant radiation. The patient has good rotational motion of lumbar spine, both laterally as well as extension and flexion without significant pain reported. EXTREMITIES: The patient's lower extremities show deep tendon reflexes at 2+ in the patellar, 1+ tendo-calcaneus tendons. Motor exam is approximately 4 on a scale of 5 on the left with dorsiflexion, extension, quadriceps and hamstrings and 5/5 on the right. The patient does show positive Ronnie's maneuver with left hip external rotation and displacement laterally into the left groin and into the anterior thigh, but negative on the right side. Peripheral pulses are 1+ posterior tibia. No peripheral edema is noted bilaterally. Options were discussed with the patient. The patient's old chart was reviewed as his current medication regimen updated. Current review of systems updated today as well. We will proceed with a left intra-articular hip joint injection using C-arm fluoroscopic guidance. Risks were again discussed including, but not limited to bleeding, infection, possibility of intravascular injection sequelae, spread of local anesthetic and numbness, side effects of steroid medication, exposure to fluoroscopy and poor results regarding pain control. The patient understands and wished to proceed. The patient will return to the clinic in approximately 2 weeks for followup. He was counseled on his return appointment, activity level and side effects to be aware of. DIAGNOSIS: Left hip joint pain with primary osteoarthritis, left hip joint. PROCEDURE: Left intra-articular hip joint injection using C-arm fluoroscopic guidance under sterile prep and drape using local anesthetic. MEDICATION INJECTED: A total of 80 mg Depo-Medrol plus 3 mL of 0.25% bupivacaine and 2 mL of contrast. CONDITION AT DISCHARGE: Stable. The patient tolerated the procedure well, had no complications. RENATA WU MD DR: DAILY/capo JOB#: [id number] / [id number]
== END ==
LOC: PNCL 13:48
PROVIDERS: ATTEND Anesthesiology
DX: M16.12 Unilateral primary osteoarthritis, left hip (principal)
CPT/HCPCS: 20610; 77002; J1040; J3490; Q9965

== ENCOUNTER → 2019-09-30 | Outpatient (CLI) | payer OTHER ==
[~2019-09-30] MED LIST changes: -BUPIVACAINE MPF 0.25% 10 ML VIAL. ONE; +methylPREDNISolone ACETATE 40 MG/ML VIAL. ONE
--- NOTE | 2019-09-30 09:31 | PAIN ---
DATE OF SERVICE: 09/30/2019 PROGRESS NOTE FOR PAIN CLINIC DIAGNOSES: 1. Lumbar radiculopathy with lumbar degenerative disk disease and lumbar post-laminectomy syndrome. 2. Left hip joint pain with primary osteoarthritis. 3. Left knee joint pain with primary osteoarthritis. HISTORY OF PRESENT ILLNESS: The patient is a 64-year-old male who returns for followup status post lumbar epidural steroid injection x 1 and left hip joint injection. The patient reports that the hip joint is getting better, about 50% improvement with the hip injection from last visit. The patient still with pain radiating to the left lower extremity, however, mostly into the thigh, posterior and anterior as well as into the knee and into the lower leg, has a "fire" sensation in the leg itself. The patient reports it is worse with walking, standing, changing positions. Hip is doing quite a bit better. He has been increasing his activity with greater distance walking, positioning better, doing household activities, traveling with greater ease and comfort. The patient reports his pain at 8 on a scale of 10 in his leg; however, over the past week at its worst, 5 on average, 5 at its least and is a 5 today. The patient reports it is sharp, alternating with tight and burning sensation in the legs, stabbing, becoming severe with activity. The patient reports no new motor or sensory deficits, no new bowel or bladder incontinence. The patient states it does awake him from sleep about every 2 hours. PHYSICAL EXAMINATION: VITAL SIGNS: The patient's blood pressure is 117/71, pulse 66, respirations 18, temperature 98.2 degrees Fahrenheit, height is 5 feet 10 inches, weight is 188 pounds. GENERAL: The patient is awake, alert, oriented, appropriate, very pleasant demeanor. HEENT: Shows normocephalic, atraumatic. Extraocular movements are intact and symmetrical. Oral cavity: Mucous membranes moist and pink. Dentition is intact. NECK: Shows anterior throat supple without palpable lymphadenopathy noted. Swallow reflex symmetrical. CHEST: Shows normal on inspection. Breath sounds clear to auscultation bilaterally. HEART: Shows S1, S2 clear. No murmurs auscultated. ABDOMEN: Soft, nontender, nondistended. No palpable organomegaly is noted. No rebound or guarding demonstrated. BACK: Shows spine grossly in the midline. Normal appearing thoracic kyphosis and flattening of lumbar lordotic curvature. Well-healed surgical scar noted. Lumbar paraspinous muscle shows symmetrical on inspection, with palpation shows some moderate tenderness diffusely bilaterally going diffusely without significant radiation. The patient has good rotational motion of lumbar spine, both laterally as well as extension and flexion without difficulty. EXTREMITIES: Lower extremities show deep tendon reflexes at 2+ in the patellar, 1+ tendo-calcaneus tendons. Motor exam is approximately 4 on a scale 5 on the left with dorsiflexion, extension, quadriceps and hamstring flexion and 5/5 on the right. Peripheral pulses are 1+ posterior tibia. No peripheral edema is noted bilaterally. Options were discussed with the patient. The patient's old chart was reviewed as his current medication regimen updated. Current review of systems updated today as well. We will proceed with a second in a series of lumbar epidural steroid injection today with fluoroscopic guidance. Risks were again discussed including, but not limited to bleeding, infection, possibility of epidural hematoma, subsequent neurological compromise, dural puncture, headaches, spinal cord and/or nerve damage, side effects of steroid medication and poor results regarding pain control. The patient understands and wished to proceed. The patient will return to clinic in approximately 2 weeks for followup. He was counseled on return appointment, activity level and side effects to be aware of. DIAGNOSIS: Lumbar radiculopathy with lumbar degenerative disk disease and lumbar post-laminectomy syndrome. PROCEDURE: Lumbar epidural steroid injection, translaminar approach L5-S1 level using C-arm fluoroscopic guidance under sterile prep and drape using local anesthetic. MEDICATION INJECTED: A total of 120 mg Depo-Medrol plus 10 mL of preservative-free normal saline and 2 mL of contrast. CONDITION AT DISCHARGE: Stable. The patient tolerated procedure well, had no complications. RENATA WU MD DR: DAILY/capo JOB#: [id number] / [id number]
== END | disposition home or self-care (01) ==
LOC: PNCL 08:10
PROVIDERS: ATTEND Anesthesiology
DX: M51.16 Intervertebral disc disorders with radiculopathy, lumbar region (principal); M16.12 Unilateral primary osteoarthritis, left hip; M17.12 Unilateral primary osteoarthritis, left knee; M96.1 Postlaminectomy syndrome, not elsewhere classified; Z98.890 Other specified postprocedural states
CPT/HCPCS: 62323; J1030; J1040; Q9965

== ENCOUNTER → 2019-10-14 | Outpatient (CLI) | payer OTHER ==
[~2019-10-14] MED LIST changes: +HYLAN G-F 20 48 MG/6 ML SYRINGE INT ART ONE
--- NOTE | 2019-10-14 10:35 | PAIN ---
DATE OF SERVICE: 10/14/2019 PROGRESS NOTE FOR PAIN CLINIC DIAGNOSES: 1. Lumbar radiculopathy with lumbar degenerative disk disease and lumbar post-laminectomy syndrome. 2. Left hip joint pain with osteoarthritis. 3. Left knee joint pain with osteoarthritis. HISTORY OF PRESENT ILLNESS: The patient is a 64-year-old male who returns for followup status post lumbar epidural steroid injection x 2. The patient reports much improved for about 2-3 days with a stinging and pain in his left leg, but it returned after that time with still radiating pain in the low back, left hip, posterior gluteus, lateral thigh, anterior thigh, medial thigh, posterior calf and left knee. The patient reports initially he was doing much better with walking and doing work activities, household activities, but now the pain is returning in the low back, left leg especially. The patient describes it as burning and stabbing, sharp, tight, becoming more constant, rates a 9 on a scale of 10 at its worst, on average 7 and a 5 at its least and is a 5 today. The patient reports no new motor or sensory deficits, no new bowel or bladder incontinence or other complaints. PHYSICAL EXAMINATION: VITAL SIGNS: The patient's blood pressure is 133/96, pulse 58, respirations are 18, temperature 98.1 degrees Fahrenheit, height is 5 feet 10 inches and weight is 191 pounds. GENERAL: The patient is awake, alert, oriented, appropriate, very pleasant demeanor. HEENT: Head shows normocephalic, atraumatic. Extraocular movements are intact and symmetrical. Oral cavity: Mucous membranes moist and pink. Dentition is intact. NECK: Shows anterior throat supple without palpable lymphadenopathy noted. Swallow reflex symmetrical. CHEST: Shows normal on inspection. Breath sounds are clear to auscultation bilaterally. No rales, rhonchi or wheezes auscultated. HEART: Shows S1, S2 clear. ABDOMEN: Soft, nontender, nondistended. BACK: Shows spine grossly in the midline, slight flattening of lumbar lordotic curvature with well-healed surgical scarring noted. Lumbar paraspinous muscle shows symmetrical on inspection, with palpation shows some moderate tenderness diffusely bilaterally, but only diffusely in the low and mid lumbar distribution. No trigger points. No atrophy or hypertrophy. No asymmetry. The patient has good rotational motion of lumbar spine, both laterally as well as extension and flexion without significant increase in pain. EXTREMITIES: Lower extremities show deep tendon reflexes 2+ in the patellar, 1+ tendo-calcaneus tendons. Motor exam is strong with approximately 4 on a scale of 5 with left dorsiflexion, extension, quadriceps and hamstring flexion and 5/5 with the right. Peripheral pulses are 1+. No peripheral edema is noted. Options were discussed with the patient. The patient's old chart was reviewed as his current medication regimen updated. Current review of systems updated today as well. We will proceed with a third in the series of lumbar epidural steroid injection today with fluoroscopic guidance. Risks were again discussed including, but not limited to bleeding, infection, possibility of epidural hematoma, subsequent neurological compromise, dural puncture, headaches, spinal cord and/or nerve damage, side effects of steroid medication and poor results regarding pain control. The patient understands and wished to proceed. The patient will return to clinic in approximately 2 weeks for followup. He was counseled on return appointment, activity level and side effects to be aware of. DIAGNOSIS: Lumbar radiculopathy with lumbar degenerative disk disease and lumbar post-laminectomy syndrome. PROCEDURE: Lumbar epidural steroid injection, translaminar approach at L5-S1 level using C-arm fluoroscopic guidance under sterile prep and drape using local anesthetic. MEDICATION INJECTED: A total of 120 mg of Depo-Medrol plus 10 mL of preservative-free normal saline and 2 mL of contrast. CONDITION AT DISCHARGE: Stable. The patient tolerated the procedure well, had no complications. RENATA WU MD DR: DAILY/capo JOB#: [id number] / [id number]
== END | disposition home or self-care (01) ==
LOC: PNCL 09:01
PROVIDERS: ATTEND Anesthesiology
DX: M51.16 Intervertebral disc disorders with radiculopathy, lumbar region (principal); M96.1 Postlaminectomy syndrome, not elsewhere classified; M16.12 Unilateral primary osteoarthritis, left hip; M17.12 Unilateral primary osteoarthritis, left knee; Z98.890 Other specified postprocedural states
CPT/HCPCS: 62323; J1030; J1040; J7325; Q9965

== ENCOUNTER → 2019-10-17 | Outpatient (CLI) | payer OTHER ==
[~2019-10-17] MED LIST changes: -HYLAN G-F 20 48 MG/6 ML SYRINGE INT ART ONE; -IOHEXOL 180 MG/ML 10 ML VIAL. ONE; -methylPREDNISolone ACETATE 40 MG/ML VIAL. ONE; -methylPREDNISolone ACETATE 80 MG/ML VIAL. ONE
--- NOTE | 2019-10-17 11:31 | RAD ---
MRI Lumbar Spine without contrast History: Low back pain, left radiculopathy Technique: Multiplanar, multi sequential noncontrast MR imaging was performed of the lumbar spine. Comparison: 08/17/2019 Findings: There are again multilevel Schmorl's nodes. AP alignment is overall maintained. Conus terminates near L1. There is residual edema of the L4-5 endplates and about inferior L4 Schmorl's node, fairly similar. There is again [id number] degenerative disc disease posteriorly at L5-S1, mild disc desiccation at more superior levels. L1-L2: Neural foramina and spinal canal are adequate. L2-L3: Neural foramina and spinal canal are adequate. L3-L4: Neural foramina are overall adequate. Spinal canal is adequate. L4-L5: There is again left laminectomy defect. There is facet degenerative change. Spinal canal is adequate. Neural foramina are overall adequate. L5-S1: There is again minimal bulge without significant neural impingement or spinal stenosis. Neural foramina are overall adequate. Shallow left extraforaminal protrusion is again near the extraforaminal left L5 nerve root without significant displacement. Impression: 1. There is no new significant lumbar spinal stenosis neural foramina compromise. There is again left laminectomy defect L4-5. There is again [id number] degenerative disc disease L5-S1. There is some residual mild L4-5 endplate edema and about inferior L4 Schmorl's node more likely reactive/degenerative in etiology. Electronically signed by: Yvan Yen MD (10/17/2019 11:28 AM) [id number]
--- NOTE | 2019-10-17 12:57 | RAD ---
Examination: MRI of the left hip without contrast HISTORY: History of left hip pain COMPARISON: None available TECHNIQUE: Multiplanar, multisequence MR imaging of the left hip were performed without contrast. FINDINGS: The femoral head is within the acetabulum. Severe joint space loss left hip joint likely degenerative changes. Moderate increased T2 signal identified in the left femoral head, neck and in the left acetabular region. Small left hip joint effusion. Subchondral cystic changes identified in the left acetabulum likely degenerative changes. Mild prominence of the synovium. An obvious fracture line is not evident. IMPRESSION: 1. Moderate increased T2 signal /edema identified in the left femoral head, neck and left acetabular region with some synovial changes. Differential includes severe degenerative changes with transient osteoporosis of the hip, septic arthritis or degenerative changes with stress reactive change in the left femoral neck is not excluded. Findings called to ordering physician's office at 10/17/2019 12:54 PM. Electronically signed by: Osbaldo Clark MD (10/17/2019 12:54 PM) [id number]
--- NOTE | 2019-10-17 13:08 | RAD ---
Examination: MRI of the left knee without contrast HISTORY: History of left knee pain COMPARISON: None available TECHNIQUE: Multiplanar, multisequence MR imaging of the left knee was performed without contrast. FINDINGS: The anterior cruciate ligament, posterior cruciate ligament appear intact. There is blunting of the posterior horn of the medial meniscus likely tear of the medial meniscus with minimal extrusion of the medial meniscus medially. The lateral meniscus grossly appears unremarkable. The medial collateral ligament is intact. Lateral collateral ligamentous complex appearing the fibular collateral ligament, biceps femoris tendon, popliteus tendon appear intact. Small knee joint effusion is identified. The medial retinaculum, lateral retinaculum appear intact. Deep fissuring of cartilage identified in the medial compartment. There is mild superficial fraying of cartilage identified lateral, patellofemoral compartments. IMPRESSION: 1. Tear of the posterior horn of the medial meniscus with minimal extrusion of the medial meniscus medially. 2. Grade II chondromalacia medial compartment. Grade I chondromalacia patella. Electronically signed by: Osbaldo Clark MD (10/17/2019 1:05 PM) [id number]
== END ==
LOC: MRI 10:04
PROVIDERS: ATTEND Anesthesiology
DX: M51.16 Intervertebral disc disorders with radiculopathy, lumbar region (principal); M94.262 Chondromalacia, left knee; M16.12 Unilateral primary osteoarthritis, left hip
CPT/HCPCS: 72148; 73721

== ENCOUNTER → 2019-10-24 | Outpatient (CLI) | payer OTHER ==
[~2019-10-24] MED LIST changes: +IOHEXOL 180 MG/ML 10 ML VIAL. ONE
--- NOTE | 2019-10-24 14:09 | PAIN ---
DATE OF SERVICE: 10/24/2019 PROGRESS NOTE FOR PAIN CLINIC DIAGNOSES: 1. Lumbar radiculopathy with lumbar degenerative disk disease and lumbar post-laminectomy syndrome. 2. Left hip joint pain with primary osteoarthritis. 3. Left knee joint pain with primary osteoarthritis and torn meniscus. HISTORY OF PRESENT ILLNESS: The patient is a 64-year-old male who returns for followup status post lumbar epidural steroid injection x 3. The patient reports still significant pain in the left lower extremity. We did discuss my phone with him the other day, results of his MRI scans of both his lumbar spine, left hip and left knee. Knee showing tear of the posterior horn of the medial meniscus with minimal extrusion of the medial meniscus medially and hip shows severe joint space loss, likely due to degenerative changes. The patient reports still significant pain in the left leg and becoming more difficult to walk or put weightbearing maneuvers on his left leg. The patient reports his pain is an 8 on a scale of 10 at its worst, average at a 7 at its least and is an 8 today. The patient reports it is sharp, tight, shooting, burning, stabbing pain into the left groin as well becoming more constant with weightbearing and walking, especially in the medial aspect of the left knee. The patient reports no new motor or sensory deficits, no new bowel or bladder incontinence. PHYSICAL EXAMINATION: VITAL SIGNS: The patient's blood pressure is 142/91, pulse 54, respirations 18, temperature is 97.2 degrees Fahrenheit, height is 5 feet 10 inches, weight is 191 pounds. GENERAL: The patient is awake, alert, oriented, appropriate, very pleasant demeanor. HEENT: Shows normocephalic, atraumatic. Extraocular movements are intact and symmetrical. Oral cavity: Mucous membranes moist and pink. Dentition is intact. NECK: Shows anterior throat supple without palpable lymphadenopathy noted. Swallow reflex symmetrical. CHEST: Shows normal on inspection. Breath sounds clear to auscultation bilaterally. HEART: Shows S1, S2 clear. No murmurs auscultated. ABDOMEN: Soft, nontender, nondistended. BACK: Shows spine grossly in the midline. Normal appearing thoracic kyphosis. Some minor flattening of lumbar lordotic curvature as well. Lumbar paraspinous muscle shows symmetrical on inspection, on palpation shows some moderate tenderness diffusely throughout the middle and lower distribution of the paraspinous muscles, but only diffusely without significant radiation. The patient shows good rotational motion of lumbar spine, both laterally as well as extension and flexion without difficulty. EXTREMITIES: The patient's lower extremities show deep tendon reflexes 2+ in the patellar, 1+ in the tendo-calcaneus tendons. Motor exam is approximately 4 on a scale of 5 with left dorsiflexion, extension, quadriceps and hamstring flexion and 5/5 on the right. The patient has significant tenderness with Ronnie's maneuver with external rotation of the left hip and posterior displacement and also tenderness with passive motion of the left knee, which is new from previous exam. Peripheral pulses are 1+ in the posterior tibia. No peripheral edema is noted bilaterally. Options were discussed with the patient. The patient's old chart was reviewed as well as his current medication regimen updated. Current review of systems updated today as well. We will proceed with a left knee intraarticular Synvisc injection. Risks were discussed including but not limited to bleeding, infection, possibility of intravascular injection sequelae, spread of local anesthetic and numbness, extravasation of Synvisc as well as poor results regarding pain control. The patient understands and wished to proceed. The patient will return to the clinic in approximately 2 weeks for followup. She was counseled on return appointment, activity level and side effects to be aware of. DIAGNOSIS: Left knee joint pain with primary osteoarthritis and torn meniscus. PROCEDURE: Left knee Synvisc injection under sterile prep and drape using local anesthetic. MEDICATION INJECTED: Synvisc 6 mL and 1.5 mL of contrast. CONDITION AT DISCHARGE: Stable. The patient tolerated the procedure well, had no complications. RENATA WU MD DR: DAILY/capo JOB#: [id number] / [id number]
== END ==
LOC: PNCL 11:58
PROVIDERS: ATTEND Anesthesiology
DX: M17.12 Unilateral primary osteoarthritis, left knee (principal); M16.12 Unilateral primary osteoarthritis, left hip; M51.16 Intervertebral disc disorders with radiculopathy, lumbar region; M96.1 Postlaminectomy syndrome, not elsewhere classified
CPT/HCPCS: 20610; 77002; Q9965

== ENCOUNTER → 2019-11-11 | Outpatient (CLI) | payer OTHER ==
[~2019-11-11] MED LIST changes: +HYDR2TAB31 PO; -IOHEXOL 180 MG/ML 10 ML VIAL. ONE; +OXYC1TAB19 PO
== END | disposition home or self-care (01) ==
LOC: SURGPAT 13:22
PROVIDERS: ATTEND Orthopaedic Surgery
DX: Z01.812 Encounter for preprocedural laboratory examination (principal); Z11.59 Encounter for screening for other viral diseases; S83.242A Other tear of medial meniscus, current injury, left knee, initial encounter
CPT/HCPCS: C9803; U0003; 36415

== ENCOUNTER 2019-11-15 09:21 | Day surgery (SDC) | payer OTHER ==
[~2019-11-15] VITALS: Ht 180.3 cm; Wt 89.4 kg
[~2019-11-15 09:21] MED LIST changes: +DEXAMETHASONE SOD PHOS 4 MG/ML VIAL ONE; -HYDR2TAB31 PO; +HYDROmorphone 2 MG/ML VIAL IV PRN; +LIDOCAINE 1% PF 2 ML VIAL. ID PRN; +LIDOCAINE 2% PF 5 ML VIAL. ONE; +ONDANSETRON PF 4 MG/2 ML VIAL. IV PRN; +ONDANSETRON PF 4 MG/2 ML VIAL. ONE; -OXYC1TAB19 PO; +PROCHLORPERAZINE 10 MG/2 ML VIAL. IV PRN; +PROPOFOL 10 MG/ML (20ML) VIAL. IV ONE; +fentaNYL PF VIAL 100 MCG/2 ML VIAL IV PRN; +fentaNYL PF VIAL 100 MCG/2 ML VIAL ONE
[2019-11-15 10:09] LABS: BASO % 1 % (0-3); EOS # 0.1 x10^3/uL (0.0-0.7); EOS % 1 % (0-3); HEMATOCRIT 44.1 % (39.0-53.0); HEMOGLOBIN 15.1 g/dL (13.0-17.5); LYMPH # 2.3 x10^3/uL (1.0-4.8); LYMPH % 23 % (24-48); MEAN CORPUSCULAR HEMOGLOBIN 31 pg (25-35); MEAN CORPUSCULAR HGB CONC 34 g/dL (31-37); MEAN CORPUSCULAR VOLUME 90 fL (79-100); MONO # 0.9 x10^3/uL (0.0-1.1); MONO % 9 % (0-9); NEUT # 6.7 x10^3/uL (1.8-7.7); NEUT % 67 % (31-73); PLATELET COUNT 301 x10^3/uL (140-400); RED BLOOD COUNT 4.91 x10^6/uL (4.30-5.70); RED CELL DISTRIBUTION WIDTH 14.4 % (11.5-14.5)
[2019-11-15 10:20] LABS: CALCIUM 8.8 mg/dL (8.5-10.1); CREATININE 0.9 mg/dL (0.7-1.3); GFR 84.4; POTASSIUM 3.9 mmol/L (3.5-5.1)
[2019-11-15] MEDS: IV RINGERS,LACTATED 1000ML 1,000 ML IV SCH ×2 (10:20→13:17)
[2019-11-15] MEDS ORDERED: BUPIVACAINE-EPI 0.5%-1:200000 MPF 30 ML VIAL. ONE (10:21)
[2019-11-15] MEDS ORDERED: SEVOFLURANE 61 TO 120 MINUTES. IH ONE (12:33)
[2019-11-15] MEDS ORDERED: ePHEDrine PF IN SALINE 50 MG/10 ML SYRINGE. IV ONE (12:40)
[2019-11-15] MEDS ORDERED: SEVOFLURANE 31 TO 60 MINUTES. IH ONE (12:40)
[2019-11-15] MEDS ORDERED: OXYC1TAB19 PO (12:52)
--- NOTE | 2019-11-15 12:53 | DISCH ---
DISCHARGE INSTRUCTIONS Condition on Discharge Condition on Discharge: Stable Activity After Discharge Activity Instructions for Disc: Progressive ambulation Weight Bearing Status after Di: As tolerated Diet after Discharge Diet after Discharge: Regular Additional Diet Restrictions: resume home diet Wound Incision Care Wound/Incision Care: Ice to area for comfort, Change dressing (Remove dressing in 2 days may then shower no soaking until sutures removed) Contacting the after DC Call your doctor for: Concerns you may have Follow-Up Follow up with: Dr. Corral 7 to 10 days ALYSSIA CORRAL MD November 15, 2019 12:53
[2019-11-15] MEDS: fentaNYL PF VIAL 100 MCG/2 ML VIAL IV PRN ×2 (13:13→13:34)
[2019-11-15] MEDS: MORPHINE SULFATE 2 MG/ML VIAL. IV PRN ×2 (13:16→13:35)
[2019-11-15] MEDS ORDERED: oxyCODONE/APAP 5/325 1 TAB TABLET PO ONE (13:30)
[2019-11-15 13:48] VITALS: BP 114/65
--- NOTE | 2019-11-15 14:55 | PDOC4 ---
Operative Note Operative Note Date of surgery: 11/15/2019 Preoperative diagnosis: Medial meniscus tear Postoperative diagnosis: Same plus free edge lateral meniscus tear and chondral flap tear medial distal femur and medial parapatellar plica Operative procedure: Left knee arthroscopy partial medial and lateral meniscectomy with debridement of chondral flap tear and medial parapatellar plica Surgeon: Ellis Pharmacy Technologist: Bi harrington Anesthesia: General Estimated blood loss: 5 cc Complications: None Operative indications: Please see my orthopedic clinic note for detailed operative indications and note that I did cover that although we are attempting to address the mechanical aspects of the meniscus tear I am not able to undo any degenerative changes and those related symptoms would have to be treated on an ongoing symptomatic basis. Operative text: Patient was identified procedure verified patient placed in the supine position on the operating table. After adequate amounts of general anesthesia were administered the left lower extremity was prepped and draped in the standard sterile fashion with a thigh tourniquet. After timeout was performed patient procedure identified and verified the left lower extremity was exsanguinated by Esmarch bandage tourniquet inflated to 300 mmHg a lateral portal was established medial portal established using spinal needle localization and the knee joint was systematically examined. He was found to have a displaceable tear of the posterior horn medial meniscus which was trimmed back to stable tissue and I also noted a displaceable chondral flap tear and debrided it back to stable tissue along the lateral edge of the weightbearing surface of the medial femoral condyle. ACL was probed and found to be intact. He did have a free edge tear of the lateral meniscus primarily at the body which was radius appropriately back to stable tissue. 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 The knee was drained of arthroscopic fluid portal and fat pad area injected with 20 cc of half percent plain Marcaine portals closed with nylon suture sterile dressings were applied, toes are noted to be warm pink following deflation of the tourniquet and patient was returned to recovery room in stable condition having tolerated procedure well. Bi harrington was present for the procedure and assisted in the prepping draping positioning closure and dressing placement ALYSSIA MARLEY MD November 15, 2019 14:55
== END 2019-11-15 14:44 | disposition home or self-care (01) ==
LOC: SURG 09:21
PROVIDERS: ATTEND Orthopaedic Surgery
DX: S83.242A Other tear of medial meniscus, current injury, left knee, initial encounter (principal); S83.282A Other tear of lateral meniscus, current injury, left knee, initial encounter; M94.262 Chondromalacia, left knee; K21.9 Gastro-esophageal reflux disease without esophagitis; E03.9 Hypothyroidism, unspecified; F17.210 Nicotine dependence, cigarettes, uncomplicated; Z79.899 Other long term (current) drug therapy; Z98.890 Other specified postprocedural states; X58.XXXA Exposure to other specified factors, initial encounter; Y93.89 Activity, other specified; Y92.89 Other specified places as the place of occurrence of the external cause
CPT/HCPCS: 29880; 36415; 80048; 85025; A7015; J0780; J1100; J2270; J2405; J2704; J3010; J3490

== ENCOUNTER → 2019-12-26 | Outpatient (CLI) | payer OTHER ==
[~2019-12-26] MED LIST changes: -DEXAMETHASONE SOD PHOS 4 MG/ML VIAL ONE; +HYDR2TAB31 PO; -HYDROmorphone 2 MG/ML VIAL IV PRN; -LIDOCAINE 1% PF 2 ML VIAL. ID PRN; -LIDOCAINE 2% PF 5 ML VIAL. ONE; -ONDANSETRON PF 4 MG/2 ML VIAL. IV PRN; -ONDANSETRON PF 4 MG/2 ML VIAL. ONE; +OXYC1TAB19 PO; -PROCHLORPERAZINE 10 MG/2 ML VIAL. IV PRN; -PROPOFOL 10 MG/ML (20ML) VIAL. IV ONE; -fentaNYL PF VIAL 100 MCG/2 ML VIAL IV PRN; -fentaNYL PF VIAL 100 MCG/2 ML VIAL ONE
[2019-12-26 11:02] LABS: ALBUMIN 3.5 g/dL (3.4-5.0); C-REACTIVE PROTEIN 11.6 mg/L (0-3.3); CALCIUM 8.8 mg/dL (8.5-10.1); CREATININE 0.9 mg/dL (0.7-1.3); GFR 84.4; POTASSIUM 3.8 mmol/L (3.5-5.1); PROTHROMBIN TIME PATIENT 13.5 SEC (11.7-14.0)
[2019-12-26 11:46] LABS: BASO % 0 % (0-3); EOS # 0.2 x10^3/uL (0.0-0.7); EOS % 2 % (0-3); HEMOGLOBIN 15.6 g/dL (13.0-17.5); LYMPH # 2.5 x10^3/uL (1.0-4.8); LYMPH % 26 % (24-48); MEAN CORPUSCULAR HEMOGLOBIN 31 pg (25-35); MEAN CORPUSCULAR HGB CONC 34 g/dL (31-37); MEAN CORPUSCULAR VOLUME 92 fL (79-100); MONO # 0.7 x10^3/uL (0.0-1.1); MONO % 7 % (0-9); NEUT # 6.3 x10^3/uL (1.8-7.7); NEUT % 64 % (31-73); PLATELET COUNT 260 x10^3/uL (140-400); RED BLOOD COUNT 5.02 x10^6/uL (4.30-5.70); WHITE BLOOD COUNT 9.7 x10^3/uL (4.0-11.0)
--- NOTE | 2019-12-26 14:58 | RAD ---
CHEST PA LATERAL History: Reason: joint prehab class-hx of tobacco use-preop eval, RIGHT HIP REPLACEMENT 01/17 / . Instructions: / History: Comparison: CT chest January 11, 2019 Findings: No consolidation or pleural effusion. Normal heart size. No pneumothorax. Right lateral midlung pleural thickening related to pleural fat as seen on prior CT. Impression: 1. No acute cardiopulmonary process. Electronically signed by: Ta Jung DO (12/26/2019 2:55 PM) [id number]
--- NOTE | 2019-12-26 16:06 | EKG ---
[facility] [address] [place] [address] Test Date: 2019-12-26 Test Time: 11:45:40 Pat Name: DONAVAN AWAD Department: Room: Gender: M Government Minister: : 1955 Requested By: ALYSSIA MARLEY Order Number: [id number] Reading MD: Avi Mcmanus MD Measurements Intervals [place] Rate: 51 P: 60 [place]: 196 QRS: 17 QRSD: 74 T: 26 QT: 466 QTc: 431 Interpretive Statements SINUS RHYTHM Electronically Signed On 12-29-2019 9:41:51 CDT by Avi Mcmanus MD
[2019-12-27 01:08] LABS: HEMOGLOBIN A1C 6.3 % (4.8-5.6)
== END | disposition home or self-care (01) ==
LOC: SURGPAT 12:15
PROVIDERS: ATTEND Orthopaedic Surgery
DX: Z01.818 Encounter for other preprocedural examination (principal); M16.12 Unilateral primary osteoarthritis, left hip; J92.9 Pleural plaque without asbestos
CPT/HCPCS: 36415; 71046; 80048; 82040; 82306; 83036; 85025; 85610; 85730; 86140; 87641; 93005

== ENCOUNTER → 2020-01-13 | Outpatient (CLI) | payer OTHER | END | disposition home or self-care (01) | LOC: LAB 13:04 | PROVIDERS: ATTEND Orthopaedic Surgery | DX: Z11.59 Encounter for screening for other viral diseases (principal) | CPT/HCPCS: U0003-CS ==

== ENCOUNTER 2020-01-17 07:34 | Observation (INO) | payer OTHER, MEDICARE ==
[~2020-01-17] VITALS: Ht 180.3 cm; Wt 86.2 kg
[2020-01-17] VITALS (8 sets, daily range): BP systolic 103–134; BP diastolic 63–89
[~2020-01-17 07:34] MED LIST changes: +IV RINGERS,LACTATED 1000ML 1,000 ML IV SCH; +LIDOCAINE 1% PF 2 ML VIAL. ID PRN; +MORPHINE SULFATE 2 MG/ML VIAL. IV PRN; +ONDANSETRON PF 4 MG/2 ML VIAL. IV PRN; +PROCHLORPERAZINE 10 MG/2 ML VIAL. IV PRN; +TRANEXAMIC ACID 1,000 MG in IV NORMAL SALINE 50ML 50 ML INJ ONE; +fentaNYL PF VIAL 100 MCG/2 ML VIAL IV PRN
[2020-01-17] MEDS ORDERED: TRANEXAMIC ACID 1,000 MG in IV NORMAL SALINE 50ML 50 ML INJ ONE (08:00)
[2020-01-17] MEDS ORDERED: MORPHINE SULFATE 5 MG, KETOROLAC 30MG VIAL 30 MG, ROPIVacaine 0.5% PF 60 ML, EPINEPHrin... INT ART ONE ×5 (08:00)
[2020-01-17] MEDS ORDERED: LIDOCAINE 2% PF 5 ML VIAL. ONE (08:03)
[2020-01-17] MEDS ORDERED: ROCURONIUM 50 MG/5 ML VIAL. ONE (08:03)
[2020-01-17] MEDS ORDERED: PROPOFOL 10 MG/ML (20ML) VIAL. IV ONE (08:03)
[2020-01-17] MEDS ORDERED: fentaNYL PF VIAL 250 MCG/5 ML VIAL ONE (08:03)
[2020-01-17] MEDS ORDERED: ACETAMINOPHEN 500 MG TABLET PO ONE (08:45)
[2020-01-17] MEDS ORDERED: MELOXICAM 7.5 MG TABLET PO SCH (08:45)
[2020-01-17] MEDS ORDERED: GABAPENTIN 300 MG CAPSULE. PO ONE (09:00)
[2020-01-17] MEDS: IV NORMAL SALINE 1000ML BAG 1,000 ML IV SCH (09:58)
[2020-01-17] MEDS ORDERED: ZOLPIDEM 5 MG TABLET. PO PRN (10:00)
[2020-01-17] MEDS ORDERED: CALCIUM CARBONATE 500 MG TAB.CHEW PO PRN (10:00)
[2020-01-17] MEDS ORDERED: 0.9 % SODIUM CHLORIDE 10 ML DISP.SYRIN. IV PRN (10:00)
[2020-01-17] MEDS ORDERED: diphenhydrAMINE 50 MG/ML VIAL IVP PRN (10:00)
[2020-01-17] MEDS ORDERED: DEXTROSE 50% 25 GM / 50ML DISP.SYRIN. IV PRN (10:00)
[2020-01-17] MEDS ORDERED: fentaNYL PF VIAL 100 MCG/2 ML VIAL IVP PRN (10:00)
[2020-01-17] MEDS ORDERED: PROCHLORPERAZINE 5 MG TABLET. PO PRN (10:00)
[2020-01-17] MEDS ORDERED: HYDROmorphone 2 MG TABLET PO PRN (10:00)
[2020-01-17] MEDS ORDERED: DOCUSATE SODIUM 100 MG CAPSULE. PO PRN (10:00)
[2020-01-17] MEDS ORDERED: ceFAZolin 2GM PREMIX 2 GM/50 ML BAG IV ONE (10:00)
[2020-01-17] MEDS ORDERED: MORPHINE SULFATE 2 MG/ML VIAL. IVP PRN (10:00)
[2020-01-17] MEDS ORDERED: PHENYLEPHRINE in 0.9% NACL PF 1 MG/10 ML SYRINGE. IV ONE (10:10)
--- NOTE | 2020-01-17 10:22 | HP ---
ADMIT DATE: 01/17/2020 ORTHOPEDIC HISTORY AND PHYSICAL CHIEF COMPLAINT: Left hip pain. HISTORY OF PRESENT ILLNESS: The patient is familiar to me from a previous left knee arthroscopy, where he was having pain, swelling and mechanical symptoms and that has improved since his surgery in late October. However, he continues to have known severe left hip pain and degenerative joint disease that is bothering him in the groin area, radiating down the legs somewhat, mainly above the knee and the thigh area. He also has a more remote history of surgery for radiating leg pain, which is still a problem radiating down the left leg and has some burning, tingling and swelling in the left foot area that was in early 05/2019. The left hip; however, is giving him very severe pain. He is having difficulty sleeping, getting up and around at all. He has severe start-up pain and pain related to activity in the left groin. PAST MEDICAL HISTORY: Significant for vitamin B12 deficiency, hypothyroidism, and hypogonadism. PAST SURGICAL HISTORY: Lumbar surgery with Dr. Holt on 05/26/2019. The left knee scope on 11/15/2019. FAMILY HISTORY: Significant for mother and father both without any significant family history conditions. SOCIAL HISTORY: He consumes moderate alcohol, smokes, but has cut down very significantly. Denies drug use. MEDICATIONS: List is reviewed. ALLERGIES: He has no known drug allergies. REVIEW OF SYSTEMS: Denies any chest pain, shortness of breath, fever, chills, or other constitutional symptoms. He does have the left leg radiating pain even after the back surgery and some burning pain in the left foot as well as the severe left hip pain. PHYSICAL EXAMINATION: VITAL SIGNS: Per admission sheet. HEENT: Atraumatic, normocephalic. HEART: Regular rate and rhythm. LUNGS: Clear to auscultation bilaterally. ABDOMEN: Benign. EXTREMITIES: On examination of the left hip, he is tender over his already limited range of motion at extremes, giving him left groin and upper thigh pain. He has well-healed arthroscopic portals from the knee surgery, some paresthesia and burning type pain in his left foot along with some chronic low-grade swelling with 1+ pitting edema. Normal examination of the contralateral right hip, knee and ankle. IMAGING: X-rays show severe degenerative joint disease of the left hip. ASSESSMENT: 1. Osteoarthritis of left hip with left hip pain. 2. Status post successful arthroscopy of left knee. 3. History of lumbar surgery with ongoing symptoms of burning pain in the left foot and radiating pain in left leg. TREATMENT PLAN: We had gone over risks, benefits, and postoperative course of total hip arthroplasty, the fact that while I expect resolution of his groin and upper thigh pain, I cannot guarantee any help with the burning type pain or swelling in his leg. I explained to him that in terms of those issues that is likely due to nerve root compression from his back and that may never resolve completely. As far as the hip goes, we are doing this for his mobility and replacement of the joint, there is a possibility of nerve or blood vessel damage associated with that and it could temporarily or even permanently exacerbate that condition somewhat. There is a possibility of leg length inequality, premature wear or loosening, instability, infection, medical or other anesthetic complications among others. He wishes to proceed with surgical evaluation and treatment, which will occur today with [facility]. ALYSSIA MARLEY MD DR: RAYNE/capo JOB#: [id number] / [id number] VANNESA Mackay MD
[2020-01-17] MEDS ORDERED: ONDANSETRON PF 4 MG/2 ML VIAL. ONE (10:34)
[2020-01-17] MEDS ORDERED: DEXAMETHASONE SOD PHOS 4 MG/ML VIAL ONE (10:34)
[2020-01-17] MEDS ORDERED: HYDROmorphone 2 MG/ML VIAL ONE ×2 (10:36→12:35)
[2020-01-17] MEDS ORDERED: GLYCOPYRROLATE 1 MG/5 ML VIAL. ONE (10:55)
[2020-01-17] MEDS ORDERED: NEOSTIGMINE METHYLSULFATE 5 MG/5 ML SYRINGE. ONE (10:56)
[2020-01-17] MEDS ORDERED: SEVOFLURANE 61 TO 120 MINUTES. IH ONE (10:56)
[2020-01-17] MEDS: ONDANSETRON ODT 4 MG TAB.RAPDIS. PO SCH ×2 (12:00→18:00)
[2020-01-17] MEDS: SENNOSIDES/DOCUSATE 8.6/50MG TABLET. PO SCH (12:00)
[2020-01-17] MEDS: ONDANSETRON PF 4 MG/2 ML VIAL. IVP SCH ×2 (12:00→16:20)
[2020-01-17] MEDS ORDERED: fentaNYL PF VIAL 100 MCG/2 ML VIAL ONE (12:09)
[2020-01-17] MEDS: fentaNYL PF VIAL 100 MCG/2 ML VIAL IV PRN ×2 (12:13→12:24)
[2020-01-17] MEDS: HYDROmorphone 2 MG/ML VIAL IV PRN ×2 (12:38→12:45)
--- NOTE | 2020-01-17 13:00 | NUR ---
Arrived to unit by bed from PACU. Moans when spoken too. VS stable. Left hip dressing d/i with JAG and Hemovac drain. Pedal pulses + bilaterally, warm touch. SIRENA's and SCD's on bilaterally. O2 at 2l per n/c. IVF's intact and infusing. Side rails up x's 2 with call light in reach. at bedside and discussed POC for today. Verbalized understanding. Cont. monitor.
--- NOTE | 2020-01-17 14:43 | RAD ---
HIP LEFT 2V WITH PELVIS History: Reason: postop / Spl. Instructions: / History: Technique: AP view the pelvis and 2 additional views of the left hip. Comparison: November 02, 2018 Findings: Interval left total hip arthroplasty. Expected postoperative finding subcutaneous and intra-articular gas. Surgical drain noted. Normal alignment. No fracture. Lower lumbar spondylosis. Impression: 1. Interval left total hip arthroplasty. No immediate hardware complications. Electronically signed by: Ta Jung DO (01/17/2020 2:40 PM) AJIT
[2020-01-17] MEDS ORDERED: WARFARIN 7.5 MG TABLET. PO ONE (16:00)
--- NOTE | 2020-01-17 16:20 | NUR ---
Ambulated to bathroom with PT. Got nauseated and dry heaving. Zofran IV given. Up in chair visiting with family. Cont. monitor.
[2020-01-17] MEDS: FERROUS SULFATE 325 MG TABLET. PO SCH (17:00)
--- NOTE | 2020-01-17 17:36 | PDOC4 ---
Operative Note Operative Note Date of surgery: 01/17/2020 Preoperative diagnosis: Degenerative joint disease left hip Postoperative diagnosis: Same Procedure: Left total hip arthroplasty Surgeon: Ellis Diesel Engine Erector: Bi vargas assist Anesthesia: General Estimated blood loss: 100 cc Complications: None Specimens: Femoral head to pathology Drains: None Operative indications: Please see my orthopedic clinic note and preoperative history and physical dictation for detailed operative indications Operative text: Patient was identified procedure verified patient placed in the supine position on the operating table. After adequate amounts of general anesthesia were administered he was placed in the decubitus position left side up using the Stulberg hip positioner. The left hip was then prepped and draped in standard sterile fashion and after timeout was performed patient procedure identified and verified a curvilinear incision was made centered over the greater trochanter dissection carried out to the iliotibial band and gluteal fascia which were split in line with their fibers. A Charnley retractor was placed, external rotators were divided from their insertion and hip capsule was split in a T fashion and the hip was dislocated femoral neck cut was made with a cutting guide and the femoral head was sent for pathological evaluation. Acetabulum was exposed and any minor residual contents of the fovea and labrum were removed, reaming carried out up to a size 55 and a 56 mm outer diameter stick-type coated hemispherical 3-hole shell from [employer] was impacted in proper version and a single screw was placed superiorly for additional fixation. A 40 mm inner diameter standard nonelevated acetabular liner was impacted into place the femur was prepared with lateralization with a box osteotome followed by reaming and broaching and a trial size 15 broach was trial fit with a standard offset +0 40 mm femoral head trial which gave excellent stability to about 70 degrees internal rotation at 90 degrees hip flexion. Trial components were removed thorough irrigation carried out normal saline solution and a size 15 Synergy porous-coated femoral component standard offset was impacted into place in proper version and pared with a 40 mm Oxinium modular femoral head with a 0 modular head sleeve all of which were impacted to engage the Lanier taper and reduced and found to have equivalent stability confucianism of leg length and offset. With full range of motion. Irrigation carried out normal saline solution with pulse lavage hip capsule was repaired with max braid suture, external rotators were reattached transosseously with max braid. Intra- articular mixture was injected throughout the joint capsule and subcutaneous area fascia was closed with interrupted max braid suture and reinforced with #1 PDS strata fix in a running fashion. Subcutaneous closure with buried Vicryl suture skin closure with subcuticular Monocryl and a jolly dressing was placed. Patient was returned to recovery room in stable condition having tolerated the procedure well. Bi harrington was present for the procedure and assisted in the positioning prepping draping retraction closure and dressings ALYSSIA MARLEY MD Jan 17, 2020 17:36
[2020-01-17] MEDS: KETOROLAC 30MG VIAL 30 MG, BUPIVACAINE MPF 0.25% 20 ML, EPINEPHrine 0.5 MG in TOTAL VOL... INT ART SCH (20:54)
[2020-01-18] MEDS: oxyCODONE IR 5 MG TABLET PO PRN ×3 (02:57→16:53)
[2020-01-18 02:58] VITALS: BP 111/72
[2020-01-18] MEDS: KETOROLAC 30MG VIAL 30 MG, BUPIVACAINE MPF 0.25% 20 ML, EPINEPHrine 0.5 MG in TOTAL VOL... INT ART SCH (04:37)
[2020-01-18] MEDS ORDERED: MAGNESIUM HYDROXIDE 2,400 MG/30 ML ORAL.SUSP. PO PRN (06:00)
[2020-01-18] MEDS: LEVOTHYROXINE 175 MCG TABLET PO SCH (06:11)
[2020-01-18] MEDS: ONDANSETRON ODT 4 MG TAB.RAPDIS. PO SCH ×2 (06:11)
[2020-01-18] MEDS: traMADol 50 MG TABLET PO SCH ×3 (06:11→16:56)
[2020-01-18] MEDS: ONDANSETRON PF 4 MG/2 ML VIAL. IVP SCH ×2 (06:12)
[2020-01-18] MEDS: GABAPENTIN 100 MG CAPSULE. PO SCH ×3 (06:12→16:52)
[2020-01-18 06:25] VITALS: BP 105/63
[2020-01-18 06:39] LABS: HEMOGLOBIN 13.1 g/dL (13.0-17.5)
[2020-01-18 07:24] LABS: PROTHROMBIN TIME PATIENT 13.3 SEC (11.7-14.0)
[2020-01-18] MEDS: MULTIVITAMIN with MINERAL TABLET. PO SCH (08:34)
[2020-01-18] MEDS: MELOXICAM 7.5 MG TABLET PO SCH (08:34)
[2020-01-18] MEDS: SENNOSIDES/DOCUSATE 8.6/50MG TABLET. PO SCH (08:35)
[2020-01-18] MEDS: FERROUS SULFATE 325 MG TABLET. PO SCH ×2 (08:35→16:53)
[2020-01-18] MEDS: ACETAMINOPHEN 500 MG TABLET PO SCH ×3 (08:35→20:57)
[2020-01-18] MEDS: IV NORMAL SALINE 1000ML BAG 1,000 ML IV SCH (09:58)
--- NOTE | 2020-01-18 10:46 | NUR ---
Pharmacy Warfarin Dosing Note S: Pharmacy consulted to assist with anticoagulation therapy started 01/17/20 O: DONAVAN AWAD is a 64 year old M with [facility] LABS: Last INR: 1.1 Last HGB: 13.1 Last HCT: 39.0 Last dose of 7.5 mg given on 01/17/20 at 205 Ongoing Drug Interactions: MELOXICAM A:INR of 1.1 is below desired range. Target range for this patient is: 1.6 - 2.5 P: Warfarin dose: 5 mg Today at 1600 Bridge Therapy: None Next INR due 01/19/20 AM Pharmacy anticoagulation service will continue to follow. SUSHIL ARREDONDO RP, 01/18/20 1041
[2020-01-18] MEDS ORDERED: ONDANSETRON ODT 4 MG TAB.RAPDIS. PO PRN (12:00)
[2020-01-18] MEDS ORDERED: ONDANSETRON PF 4 MG/2 ML VIAL. IVP PRN (12:00)
--- NOTE | 2020-01-18 15:50 | NUR ---
j carlos is doing well. he is complaining of burning right madrigal area. pain in right thigh is gone. He is rating his pain 5-6. original surgical dressing removed related to the removal of Hemovac. Incision cleansed with chlor prep then new jolly applied. tolerated fair.
[2020-01-18] MEDS ORDERED: BISACODYL 10 MG SUPP.RECT. PR PRN (16:00)
[2020-01-18] MEDS ORDERED: WARFARIN 5 MG TABLET. PO ONE (16:00)
[2020-01-18 18:39] VITALS: BP 110/65
--- NOTE | 2020-01-18 19:47 | PDOC ---
PROGRESS NOTES Subjective Subjective Problems overnight: Left groin area pain is much improved, still has severe left leg and foot burning that was not helped in the past by gabapentin Objective Vital Signs Vital Signs Date Time Temp Pulse Resp B/P (MAP) Pulse Ox O2 Delivery O2 Flow Rate FiO2 01/18/20 18:39 97.8 52 18 110/65 (80) 99 Room Air 97.8 01/18/20 06:11 2.0 Physical Exam Leg lengths appear equal he has good range of motion dressing with some slight bloody drainage distal motor function intact he does have burning and paresthesia in the left calf and foot area which was present preoperatively Labs Laboratory Tests Test 01/17/20 08:20 01/18/20 06:15 Prothrombin Time 13.0 SEC (11.7-14.0) 13.3 SEC (11.7-14.0) Prothromb Time International Ratio 1.0 (0.8-1.1) 1.1 (0.8-1.1) Activated Partial Thromboplast Time 31 SEC (24-38) Hemoglobin 13.1 g/dL (13.0-17.5) Hematocrit 39.0 % (39.0-53.0) Mean Corpuscular Hemoglobin Concent 34 g/dL (31-37) Laboratory Tests Test 01/18/20 06:15 Hemoglobin 13.1 g/dL (13.0-17.5) Hematocrit 39.0 % (39.0-53.0) Mean Corpuscular Hemoglobin Concent 34 g/dL (31-37) Prothrombin Time 13.3 SEC (11.7-14.0) Prothromb Time International Ratio 1.1 (0.8-1.1) Imaging Postop x-rays show good alignment total hip arthroplasty with restored leg length and offset and good acetabular alignment and fixation Assessment Assessment POD#1 left total hip arthroplasty Plan Plan of Care Adding Lyrica due to left calf and foot burning paresthesia, ineffectiveness of gabapentin Likely home with home health on discharge Justicifation of Admission Dx: Justifications for Admission: Justification of Admission Dx: N/A ALYSSIA MARLEY MD Jan 18, 2020 19:47
[2020-01-18] MEDS: PREGABALIN 50 MG CAPSULE PO SCH (20:58)
[2020-01-19] MEDS: traMADol 50 MG TABLET PO SCH ×3 (00:16→11:56)
[2020-01-19] MEDS: ACETAMINOPHEN 500 MG TABLET PO SCH ×3 (03:19→14:15)
[2020-01-19] MEDS: LEVOTHYROXINE 175 MCG TABLET PO SCH (05:32)
[2020-01-19] MEDS: GABAPENTIN 100 MG CAPSULE. PO SCH (05:33)
[2020-01-19 05:49] VITALS: BP 117/57
[2020-01-19 05:49] LABS: HEMATOCRIT 37.9 % (39.0-53.0); HEMOGLOBIN 12.8 g/dL (13.0-17.5)
[2020-01-19 05:57] LABS: PROTHROMBIN TIME PATIENT 22.1 SEC (11.7-14.0)
[2020-01-19] MEDS: MULTIVITAMIN with MINERAL TABLET. PO SCH (07:58)
[2020-01-19] MEDS: oxyCODONE IR 5 MG TABLET PO PRN (07:59)
[2020-01-19] MEDS: FERROUS SULFATE 325 MG TABLET. PO SCH (07:59)
[2020-01-19] MEDS: SENNOSIDES/DOCUSATE 8.6/50MG TABLET. PO SCH (07:59)
[2020-01-19] MEDS: PREGABALIN 50 MG CAPSULE PO SCH (07:59)
[2020-01-19] MEDS: MELOXICAM 7.5 MG TABLET PO SCH (08:00)
--- NOTE | 2020-01-19 11:10 | NUR ---
Pharmacy Warfarin Dosing Note S:Pharmacy consulted to assist with anticoagulation therapy started 01/17/20 with target INR: 1.6 - 2.5 O:DELMIDONAVAN ALCOCER is a 64 year old M with [facility] LABS: Last INR: 2 Last HGB: 12.8 Last HCT: 37.9 Last PLT: - Last dose of 5 mg given on 01/18/20 at 2053 Previous Regimen: Vitamin K given: Drug Interaction Changes: Same Interacting Drug Ongoing Drug Interactions: MELOXICAM A:INR of 2 is within desired range. Target range for this patient is: 1.6 - 2.5 P: Warfarin dose: 1 mg Today at 1600 Bridge Therapy: None Next INR due THURSDAY PER SERVICE Pharmacy anticoagulation service will continue to follow. VISHAL MATUTE [facility], 01/19/20 1027
[2020-01-19] MEDS ORDERED: OXYC5CAP PO (12:30)
[2020-01-19] MEDS ORDERED: PREG50CA91 PO (12:30)
[2020-01-19] MEDS ORDERED: TRAM50TA PO (12:30)
--- NOTE | 2020-01-19 12:33 | SNU/HH DC ---
DISCHARGE WITH HOME HEALTH DISCHARGE INFORMATION: Condition on Discharge: Stable CODE STATUS: Code Status: Full HOME HEALTH: Face to Face: I certify this patient is under my care and that I, or a nurse practitioner or physician's library services assistant working with me, had a face to face encounter that meets the physician face to face encounter requirements with this patient on [01/19/2020]. Medical Complications: S/P Joint Replacement RN For Eval/Treatment: Yes Physical Therapy For: Evalulation/Treatment Pt Meets Homebound Status: Limited distance walking POST DISCHARGE ORDERS: Activity Instructions for Disc: Activity as tolerated, Progressive ambulation (Total hip precautions on right: Avoid hip flexion past 90 degrees and internal rotation) Weight Bearing Status after Di: As tolerated Bathing Instructions: Shower-keep dressing dry, No Tub Bath until see DIET AFTER DISCHARGE: Regular Wound/Incision Care: Ice to area for comfort, Keep wound/cast CDI, Do not change dressing, No wound care needed Other wound/incision instructi: DO NOT change JAG dressing. It is to remain in place till your appointment FOLLOW-UP: Follow Up With: Dr Corral on January 29 at 10:81 [phone] Warfarin Follow UP: Dosing and blood testing per [place] [facility] TREATMENT/EQUIPMENT ORDERS: Adaptive Equipment Issued: None CERTIFICATION STATEMENT: Certification Statement: Certification Statement: Based on the above finding, I certify that this patient is confined to the home and needs intermittent senior care care, physical therapy and/or speech therapy, or continues to need occupational therapy.~ This patient is under my care, and I have initiated the establishment of the plan of care.~ This patient will be followed by myself or a community physician who will periodically review the plan of care. Home Meds Active Scripts Docusate Sodium (COLACE) 100 Mg Capsule, 100 MG PO BID PRN for constipation, #60 CAP Prov:ONELIA LOPEZ MD 05/26/19 Reported Medications Acetaminophen (ACETAMINOPHEN) 500 Mg Tablet, 1000 MG PO PRN Q8-12HRS PRN for PAIN, TAB 12/29/19 Hydromorphone Hcl (DILAUDID) 2 Mg Tablet, 2 MG PO PRN Q6HRS PRN for PAIN, TAB 12/29/19 Testosterone Cypionate (TESTOSTERONE CYPIONATE) 200 Mg/1 Ml Vial, 200 MG IM monthly for replacement, EACH 03/16/19 Levothyroxine Sodium (LEVOTHYROXINE SODIUM) 175 Mcg Tablet, 1 TAB PO DAILY for hypothyroidism, #30 TAB 5 Refills 03/16/19 [B12 IM monthly] No Conflict Check, IM 03/16/19 Discontinued Reported Medications Ibuprofen (IBUPROFEN) 400 Mg Tablet, 400 MG PO PRN Q6HRS PRN for INFLAMMATION, TAB 03/16/19 ALYSSIA CORRAL MD Jan 19, 2020 12:33
[2020-01-19] MEDS ORDERED: WARF1TAB69 PO (12:54)
[2020-01-19] MEDS ORDERED: WARFARIN 1 MG TABLET. PO ONE (14:00)
--- NOTE | 2020-01-19 15:47 | NUR ---
Patient left the building with his around 1545. Discharge education completed with the and patient by this nurse, therapy, pharmacy, and the doctor prior to discharge. JAG dressing CDI on discharge after being changed this morning. Coumadin dose given to the patient prior to discharge and his coumadin home dosing/instructions was given by pharmacy. He is being discharged with home health and a walker. No concerns noted at discharge from patient or his .
--- NOTE | 2020-01-19 17:06 | PATHOLOGY ---
[facility] Accession Number: [id number] . 01 Material submitted: . hip - LEFT HIP BONE AND TISSUE. Modifiers: left . 01 Clinical history: . DJD L hip . 02 Diagnosis: Femoral head and focal attached soft tissue, left total hip arthroplasty: - Advanced degenerative arthritis with focal subarticular cystic degeneration. - Edema and chronic inflammation of soft tissues. (JPM:jennifer; 01/19/2020) MBR 01/19/2020 1542 Local . 02 Electronically signed: . Dav Ramsey MD, Pathologist NPI- [id number] . 01 Gross description: . The specimen is received in formalin, labeled "Renato Miller, left hip bone and tissue". Received is a femoral head with attached femoral neck and soft tissue measuring 5.0 x 5.0 x 5.5 cm in greatest dimensions. The articular surface is pale huntley and smooth to granular in appearance with evidence of eburnation, as well as moderate osteophytic lipping. Sectioning reveals yellow-huntley to pink-huntley cut surfaces. No distinct nodules or lesions are noted grossly. The specimen is submitted representatively in cassette A1, following decalcification. (CAA; 01/17/2020) QAC/QAC 01/17/2020 1816 Local . 02 Pathologist provided ICD-10: M16.12 . 02 CPT . 798799, [id number] Specimen Comment: A courtesy copy of this report has been sent to [phone], [phone] Specimen Comment: [id number] Specimen Comment: Report sent to / DR NARANJO Performed at: [address], [place], [place] [id number] MD Gurpreet Bolanos MD Phone: [phone] Performed at: 02 [facility] [address] [place], [place] [id number] MD Dav Ramsey MD Phone: [phone]
--- NOTE | 2020-01-20 15:40 | DS ---
DATE OF DISCHARGE: 01/19/2020 ORTHOPEDIC DISCHARGE SUMMARY PRINCIPAL DIAGNOSIS: Degenerative joint disease, left hip. DISPOSITION: Home with home health. DISPOSITION MEDICATIONS: Include oxycodone 5 mg p.o. q.4 hours p.r.n. severe pain, tramadol 50 mg p.o. q.4 hours p.r.n. moderate pain, Lyrica 50 mg p.o. b.i.d. due to neuropathic pain left leg, and Warfarin per Anticoagulation Clinic. Resume preoperative medications except for Dilaudid 2 mg oral tablet that he was taking at home. DISCHARGE INSTRUCTIONS: His activity is weightbearing as tolerated. Standard total hip precautions, avoiding hip flexion beyond 90 degrees or internal rotation. Maintain JAG dressing, call if saturated. BRIEF DESCRIPTION OF HOSPITAL COURSE: The patient underwent uncomplicated total hip arthroplasty and was noted postoperatively to be requiring IV pain medications and complained of neuropathic pain to the left leg, burning in the left leg and foot that was actually present preoperatively likely due to his symptoms prior and coincident with his back surgery. He after adjustment of pain medications noted that he was sleeping much better, got up and around reasonably well with physical therapy, remained medically stable and was discharged home with home health followup in stable condition. ALYSSIA MARLEY MD DR: RAYNE/capo JOB#: [id number] / [id number]
== END 2020-01-19 15:51 | disposition home health service (06) ==
LOC: SURG 07:34 → 4 SOUTHEST 12:03
PROVIDERS: ADMIT Orthopaedic Surgery; ATTEND Orthopaedic Surgery
DX: M16.12 Unilateral primary osteoarthritis, left hip (principal); E03.9 Hypothyroidism, unspecified
CPT/HCPCS: 27130; 36415; 73502; 85014; 85018; 85610; 85730; 86850; 86900; 86901; 96365; 96366; 96375; 97116; 97150; 97162; 97166; 97530; 97535; A7015; C1713; G0378; G0379; J0171; J0690; J1100; J1170; J1885; J2270; J2370; J2405; J2704; J2710; J2795; J3010; J3490; J7030; J7120

== ENCOUNTER → 2020-04-30 | Outpatient (CLI) | payer OTHER, MEDICARE ==
[~2020-04-30] MED LIST changes: -IV RINGERS,LACTATED 1000ML 1,000 ML IV SCH; -LIDOCAINE 1% PF 2 ML VIAL. ID PRN; -MORPHINE SULFATE 2 MG/ML VIAL. IV PRN; -ONDANSETRON PF 4 MG/2 ML VIAL. IV PRN; +OXYC5CAP PO; +PREG50CA91 PO; -PROCHLORPERAZINE 10 MG/2 ML VIAL. IV PRN; +TRAM50TA PO; -TRANEXAMIC ACID 1,000 MG in IV NORMAL SALINE 50ML 50 ML INJ ONE; +WARF1TAB69 PO; -fentaNYL PF VIAL 100 MCG/2 ML VIAL IV PRN
--- NOTE | 2020-05-01 10:59 | CARD ---
MR#: [id number] Date of Study: 04/30/2020 Ordering Physician: VANNESA NARANJO, Referring Physician: VANNESA NARANJO, Tech: Jennifer Bryan APPROVED REPORT EXAM: Two-dimensional and M-mode echocardiogram with Doppler and color Doppler. Other Information Quality : AverageHR: 59bpm INDICATION Leg Swelling & burning RISK FACTORS Edema 2D DIMENSIONS Left Atrium(2D)3.2 (1.6-4.0cm)IVSd1.5 (0.7-1.1cm) Aortic Root(2D)3.3 (2.0-3.7cm)LVDd4.8 (3.9-5.9cm) LVOT Diameter2.0 (1.8-2.4cm)PWd1.1 (0.7-1.1cm) LVDs2.5 (2.5-4.0cm)FS (%) 48.2 % SV86.9 mlLVEF(%)79.5 (>50%) Aortic Valve AoV Peak Daljit.147.6cm/sAoV VTI30.2cm AO Peak GR.8.7mmHgLVOT Peak Daljit.105.1cm/s LVOT VTI 20.95cmAO Mean GR.5mmHg VANITA (VMAX)1.57qb7EWX (VTI)2.13cm2 AI P 1/2 Embr823mh Mitral Valve MV E Wqybsxrt34.2cm/sMV DECEL WTOR427oj MV A Yahorxaz06.1cm/sMV LSY53bv E/A Ratio0.9MVA (PHT)3.16cm2 TDI E/Lateral E'5.8E/Medial E'8.1 Pulmonary Valve PV Peak Uayzjhdm019.1cm/sPV Peak Grad.6mmHg Tricuspid Valve TR P. Akfvchzb668ya/sRAP TRPOMUJV0qvEx TR Peak Gr.51dpItWOJX26fnOm Pulmonary Vein S1 Zlpzvpzc87.1cm/sD2 Zhbaeqjo58.8cm/s PVa ynzlymlw025ltuo LEFT VENTRICLE The left ventricle is normal size. There is mild concentric left ventricular hypertrophy. The left ve ntricular systolic function is normal and the ejection fraction is within normal range. The Ejection Fraction is 50-55%. There is normal LV segmental wall motion. Transmitral Doppler flow pattern is Gra de II-pseudonormal filling dynamics. RIGHT VENTRICLE The right ventricle is normal size. There is normal right ventricular wall thickness. The right ventr icular systolic function is normal. ATRIA The left atrium size is normal. The right atrium size is normal. The interatrial septum is intact wit h no evidence for an atrial septal defect or patent foramen ovale as noted on 2-D or Doppler imaging. AORTIC VALVE The aortic valve is thickened but opens well. Doppler and Color Flow revealed trace to mild aortic re gurgitation. There is no significant aortic valvular stenosis. Calculated aortic valve area is 1.92 c m2 with maximum pressure gradient of 10 mmHg and mean pressure gradient of 5 mmHg. MITRAL VALVE The mitral valve is normal in structure and function. There is no evidence of mitral valve prolapse. There is no mitral valve stenosis. Doppler and Color-flow revealed trace mitral regurgitation. TRICUSPID VALVE The tricuspid valve is normal in structure and function. Doppler and Color Flow revealed trace tricus pid regurgitation with an estimated PAP of 29 mmHg. There is no tricuspid valve stenosis. PULMONIC VALVE The pulmonic valve is not well visualized. Doppler and Color Flow revealed trace pulmonic valvular re gurgitation. There is no pulmonic valvular stenosis. GREAT VESSELS The aortic root is normal in size. The ascending aorta is normal in size. The IVC is normal in size a nd collapses >50% with inspiration. PERICARDIAL EFFUSION There is no evidence of significant pericardial effusion. Critical Notification Critical Value: No <Conclusion> The left ventricular systolic function is normal and the ejection fraction is within normal range. Th e Ejection Fraction is 50-55%. There is normal LV segmental wall motion. Signed by : Avi Mcmanus, Electronically Approved : 05/01/2020 10:58:40
== END ==
LOC: ECHO 12:46
PROVIDERS: ATTEND Family Medicine
DX: I35.1 Nonrheumatic aortic (valve) insufficiency (principal); R22.41 Localized swelling, mass and lump, right lower limb; M79.89 Other specified soft tissue disorders; I51.7 Cardiomegaly
CPT/HCPCS: 93306

== ENCOUNTER → 2020-06-26 | Outpatient (CLI) | payer OTHER, MEDICARE ==
[~2020-06-26] MED LIST changes: +FURO20TA3 PO
[2020-06-26 15:46] LABS: BASO # 0.1 x10^3/uL (0.0-0.2); BASO % 1 % (0-3); EOS # 0.2 x10^3/uL (0.0-0.7); EOS % 2 % (0-3); HEMATOCRIT 43.6 % (39.0-53.0); LYMPH # 2.4 x10^3/uL (1.0-4.8); LYMPH % 24 % (24-48); MEAN CORPUSCULAR HEMOGLOBIN 30 pg (25-35); MEAN CORPUSCULAR HGB CONC 34 g/dL (31-37); MEAN CORPUSCULAR VOLUME 88 fL (79-100); MONO % 11 % (0-9); NEUT # 6.3 x10^3/uL (1.8-7.7); NEUT % 64 % (31-73); PLATELET COUNT 237 x10^3/uL (140-400); RED BLOOD COUNT 4.98 x10^6/uL (4.30-5.70); RED CELL DISTRIBUTION WIDTH 14.7 % (11.5-14.5); WHITE BLOOD COUNT 9.9 x10^3/uL (4.0-11.0)
[2020-06-26 16:04] LABS: PROTHROMBIN TIME PATIENT 12.8 SEC (11.7-14.0)
[2020-06-26 16:37] LABS: ALBUMIN 3.4 g/dL (3.4-5.0); C-REACTIVE PROTEIN 9.9 mg/L (0-3.3); CALCIUM 8.5 mg/dL (8.5-10.1); CREATININE 0.7 mg/dL (0.7-1.3); GFR 112.5
[2020-06-27 01:12] LABS: HEMOGLOBIN A1C 6.2 % (4.8-5.6)
== END ==
LOC: SURGPAT 13:39
PROVIDERS: ATTEND Orthopaedic Surgery
DX: Z01.812 Encounter for preprocedural laboratory examination (principal); M21.70 Unequal limb length (acquired), unspecified site
CPT/HCPCS: 36415; 80048; 82040; 82306; 83036; 85025; 85610; 85730; 86140; 87641

== ENCOUNTER → 2020-07-13 | Outpatient (CLI) | payer OTHER, MEDICARE ==
[~2020-07-13] MED LIST changes: +WARF-31 PO
== END ==
LOC: LAB 13:50
PROVIDERS: ATTEND Orthopaedic Surgery
DX: Z01.812 Encounter for preprocedural laboratory examination (principal); Z20.828 Contact with and (suspected) exposure to other viral communicable diseases
CPT/HCPCS: U0003

== ENCOUNTER 2020-07-17 11:03 | Observation (INO) | payer OTHER, MEDICARE ==
[2020-07-17] VITALS (7 sets, daily range): BP systolic 124–146; BP diastolic 72–81
[~2020-07-17] VITALS: Ht 177.8 cm; Wt 93.4 kg
[~2020-07-17 11:03] MED LIST changes: +ACETAMINOPHEN 500 MG TABLET PO PRN; +GABAPENTIN 300 MG CAPSULE. PO PRN; +HYDROmorphone 2 MG/ML VIAL IV PRN; +LIDOCAINE 1% PF 2 ML VIAL. ID PRN; +LIDOCAINE 2% PF 5 ML VIAL. ONE; +MELOXICAM 7.5 MG TABLET PO PRN; +MORPHINE SULFATE 5 MG, KETOROLAC 30MG VIAL 30 MG, ROPIVacaine 0.5% PF 60 ML, EPINEPHrin... INT ART ONE; +ONDANSETRON PF 4 MG/2 ML VIAL. IV PRN; +PROCHLORPERAZINE 10 MG/2 ML VIAL. IV PRN; +PROPOFOL 10 MG/ML (20ML) VIAL. IV ONE; +TRANEXAMIC ACID 1,000 MG in IV NS 50ML -- 1ST BAG INJ ONE; +TRANEXAMIC ACID 1,000 MG in IV NS 50ML -- 2ND BAG INJ ONE; -WARF-31 PO; +fentaNYL PF VIAL 100 MCG/2 ML VIAL IV PRN; +fentaNYL PF VIAL 100 MCG/2 ML VIAL ONE
[2020-07-17] MEDS: IV RINGERS,LACTATED 1000ML 1,000 ML IV SCH ×2 (11:46→15:38)
[2020-07-17 12:23] LABS: PROTHROMBIN TIME PATIENT 13.3 SEC (11.7-14.0)
[2020-07-17] MEDS ORDERED: VANCOMYCIN 1 GM VIAL. ONE (12:25)
[2020-07-17] MEDS ORDERED: DEXAMETHASONE SOD PHOS 4 MG/ML VIAL ONE (12:58)
[2020-07-17] MEDS ORDERED: ONDANSETRON PF 4 MG/2 ML VIAL. ONE (12:58)
[2020-07-17] MEDS ORDERED: SEVOFLURANE 31 TO 60 MINUTES. IH ONE (12:59)
[2020-07-17] MEDS ORDERED: fentaNYL PF VIAL 100 MCG/2 ML VIAL ONE ×2 (13:58→15:00)
[2020-07-17] MEDS ORDERED: MORPHINE SULFATE 2 MG/ML VIAL. ONE (15:00)
[2020-07-17] MEDS: MORPHINE SULFATE 2 MG/ML VIAL. IV PRN ×2 (15:03→15:26)
[2020-07-17] MEDS: fentaNYL PF VIAL 100 MCG/2 ML VIAL IV PRN ×2 (15:06→15:26)
[2020-07-17] MEDS ORDERED: 0.9 % SODIUM CHLORIDE 10 ML DISP.SYRIN. IV PRN (15:45)
[2020-07-17] MEDS ORDERED: DEXTROSE 50% 25 GM / 50ML DISP.SYRIN. IV PRN (15:45)
[2020-07-17] MEDS ORDERED: diphenhydrAMINE 50 MG/ML VIAL IVP PRN (15:45)
[2020-07-17] MEDS ORDERED: PROCHLORPERAZINE 5 MG TABLET. PO PRN (15:45)
[2020-07-17] MEDS ORDERED: fentaNYL PF VIAL 100 MCG/2 ML VIAL IVP PRN (15:45)
[2020-07-17] MEDS ORDERED: CALCIUM CARBONATE 500 MG TAB.CHEW PO PRN (15:45)
[2020-07-17] MEDS ORDERED: MORPHINE SULFATE 2 MG/ML VIAL. IVP PRN (15:45)
[2020-07-17] MEDS ORDERED: ZOLPIDEM 5 MG TABLET. PO PRN (15:45)
--- NOTE | 2020-07-17 15:55 | NUR ---
Arrived to unit by bed from PACU. X-ray not done in PACU. Xray here. Drowsy but awakens and then falls back to sleep. No c/o. SIRENA's and SCD's on bilaterally. O2 at 2l per n/c. IVF's intact and infusing. Pedal pulses + bilaterally, warm to touch and able to wiggle toes easily. Dressing on left hip is d/i with ice pack. Side rails up x's 2 with call light in reach. Spouse at bedside. Cont. monitor.
--- NOTE | 2020-07-17 16:41 | RAD ---
Exam performed: X-ray shunt is detected. HISTORY: Postop left hip revision. DATE OF SERVICE: 07/17/2020. COMPARISON: X-ray left hip from 02/29/2020. FINDINGS: Single AP view of the pelvis and AP and crosstable lateral view of the left upper obtained. Postoperative changes of total left hip arthroplasty is seen with prosthesis in satisfactory position . There is expectant subcutaneous edema and emphysema. IMPRESSION: As above Electronically signed by: Janeth Gibbons MD (07/17/2020 4:39 PM) [facility]
[2020-07-17] MEDS: ONDANSETRON ODT 4 MG TAB.RAPDIS. PO SCH (18:00)
[2020-07-17] MEDS ORDERED: WARFARIN 7.5 MG TABLET. PO ONE (18:00)
[2020-07-17] MEDS: FERROUS SULFATE 325 MG TABLET. PO SCH (18:20)
[2020-07-17] MEDS: ONDANSETRON PF 4 MG/2 ML VIAL. IVP SCH (18:21)
--- NOTE | 2020-07-17 18:55 | PDOC4 ---
Operative Note Operative Note Date of surgery: 07/17/2020 Preoperative diagnosis: Painful left total hip arthroplasty with history of subsidence of femoral stem and leg length discrepancy with left short over an inch Postoperative diagnosis: Same with well fixed but subsided left femoral stem Operative procedure: Revision left femoral stem of total hip arthroplasty Surgeon: Ellis Branch Specialist: Darius vargas assist Anesthesia: General Estimated blood loss: 250 cc Complications: None Operative indications: Please see my orthopedic clinic notes for detailed operative indications and note that he had a shoe buildup for slightly over 1 inch leg length discrepancy due to subsidence of his femoral stem and he is having significant hip groin and thigh pain as well as burning pain in the anterolateral knee area. He has a previous history of back surgery and left lumbar radiculopathy as well as a left knee arthroscopy that did give him good relief of his knee pain but has had persistent anterolateral burning pain in the knee area which I suspect has a radiculopathy type component. I had therefore gone over with him that revising the femoral stem can help correct his leg length and likely give him significant relief of his hip and thigh pain but I can't guarantee complete pain relief as the pain may be from other causes as above. We also talked about the possibility of infection nerve or blood vessel damage instability medical or other anesthetic complications among others all his questions were answered he wishes to proceed with surgical evaluation and treatment with joint center observation to follow Operative text: Patient was identified procedure verified patient placed in supine position on the operating table. After adequate amounts of general anesthesia were administered he was placed in the decubitus position using the Stulberg hip positioner and all bony prominences were well-padded. Left hip was prepped and draped in standard sterile fashion and after timeout was performed patient procedure identified and verified curvilinear incision was made over his previous posterior incision site. Dissection carried out down to the iliotibial band and gluteal fascia which were split in line with their fibers and a Charnley retractor was placed. The previously repaired external rotators were divided from the previous insertion and hip capsule and scar tissue was split in a T fashion. Joint fluid was noted to be normal in appearance and no need for culture was noted. After some release to allow adequate mobilization the hip was dislocated and the femoral head was removed with a bone tamp. The aceta bular polyethylene was noted to be intact without visible wear and the acetabular shell was well-placed and solidly fixated. The femoral stem was noted to be significantly subsided but was well fixated and was removed using flexible osteotomes and the component was back slapped out without any significant bone loss. Reaming was carried out up to a size 17/18 reamer with the [employer] Synergy system. Broaching was carried out up to a size 18 which provided excellent fit and fill of the calcar and canal. Trial fitting was carried out with a standard offset -4 40 mm head which was able to be reduced and did reproduce his leg length and resulted in some mild stiffness and lack of extension which was mitigated by some capsular release without affecting stability. Trial components were removed and a size 18 Synergy stem with standard offset was impacted in proper version and noted excellent stability. An Oxinium 40 mm head with a -4 tapered sleeve were impacted into place engaging the Lanier taper and reduced showing equivalent leg length sikhism motion and stability, with stability to approximately 50 degrees internal rotation at 90 degrees hip flexion. Thorough irrigation carried out with normal saline solution and dilute Betadine lavage. Hip capsule was repaired with max braid suture and reattached transosseously. 1 g vancomycin was placed in the joint and pain mixture was injected throughout the joint capsule and subperiosteally. Fascia was closed with running #1 PDS strata fix suture. Subcutaneous closure with buried Vicryl suture and skin closure with subcuticular 3-0 Monocryl PDS suture. Gamaliel dressing was applied patient was returned to recovery room in stable condition having tolerated procedure well. Darius harrington was present for the procedure and assisted in patient positioning prepping draping retraction and closure and dressings ALYSSIA MARLEY MD Jul 17, 2020 18:55
[2020-07-18 03:09] VITALS: BP 110/66
[2020-07-18] MEDS: IV NORMAL SALINE 1000ML BAG 1,000 ML IV SCH ×2 (04:49→15:45)
[2020-07-18] MEDS: ONDANSETRON PF 4 MG/2 ML VIAL. IVP SCH ×3 (06:00→12:00)
[2020-07-18] MEDS ORDERED: MAGNESIUM HYDROXIDE 2,400 MG/30 ML ORAL.SUSP. PO PRN (06:00)
[2020-07-18] MEDS: ONDANSETRON ODT 4 MG TAB.RAPDIS. PO SCH ×3 (06:00→12:15)
[2020-07-18] MEDS: GABAPENTIN 100 MG CAPSULE. PO SCH ×3 (06:26→21:14)
[2020-07-18] MEDS: traMADol 50 MG TABLET PO SCH ×4 (06:27→23:59)
[2020-07-18 06:39] VITALS: BP 112/63
[2020-07-18] MEDS: LEVOTHYROXINE 175 MCG TABLET PO SCH (07:09)
[2020-07-18] MEDS: MELOXICAM 7.5 MG TABLET PO SCH (08:05)
[2020-07-18] MEDS: SENNOSIDES/DOCUSATE 8.6/50MG TABLET. PO SCH (08:05)
[2020-07-18] MEDS: FERROUS SULFATE 325 MG TABLET. PO SCH ×2 (08:05→16:28)
[2020-07-18] MEDS: MULTIVITAMIN with MINERAL TABLET. PO SCH (08:05)
[2020-07-18] MEDS: ACETAMINOPHEN 500 MG TABLET PO SCH ×3 (08:06→21:13)
[2020-07-18 08:59] LABS: PROTHROMBIN TIME PATIENT 15.5 SEC (11.7-14.0)
--- NOTE | 2020-07-18 09:03 | PDOC ---
PROGRESS NOTES Date of Service DATE: 07/18/20 TIME: 09:01 Subjective Subjective Problems overnight: Hip and leg currently feels better than preoperatively current pain level about a 2 no other complaints Objective Vital Signs Vital Signs Date Time Temp Pulse Resp B/P (MAP) Pulse Ox O2 Delivery O2 Flow Rate FiO2 07/18/20 08:15 Room Air 07/18/20 06:39 98.2 54 18 112/63 (79) 96 98.2 07/17/20 16:25 2.0 Physical Exam Gamaliel dressing clean dry intact leg lengths appear equal distal motor function completely intact sensation according to him feels "a little bit fuzzy on the foot" but overall gross motor sensation is intact both deep and superficial peroneal and tibial nerve distribution Labs Laboratory Tests Test 07/17/20 11:45 Prothrombin Time 13.3 SEC (11.7-14.0) Prothromb Time International Ratio 1.1 (0.8-1.1) Activated Partial Thromboplast Time 33 SEC (24-38) Laboratory Tests Test 07/17/20 11:45 Prothrombin Time 13.3 SEC (11.7-14.0) Prothromb Time International Ratio 1.1 (0.8-1.1) Activated Partial Thromboplast Time 33 SEC (24-38) Imaging Postop x-rays show excellent placement of a total hip arthroplasty that show leg lengths equal within a couple millimeters Assessment Assessment POD#1 revision left femoral stem Plan Plan of Care Weightbearing as tolerated with standard total hip precautions Warfarin anticoagulation Monitor his preoperative burning pain anterolateral proximal tibia area Justicifation of Admission Dx: Justifications for Admission: Justification of Admission Dx: N/A ALYSSIA MARLEY MD Jul 18, 2020 09:03
[2020-07-18] MEDS: oxyCODONE IR 5 MG TABLET PO PRN (10:00)
[2020-07-18] MEDS ORDERED: ONDANSETRON PF 4 MG/2 ML VIAL. IVP PRN (12:00)
[2020-07-18] MEDS ORDERED: ONDANSETRON ODT 4 MG TAB.RAPDIS. PO PRN (12:00)
--- NOTE | 2020-07-18 12:40 | NUR ---
Pharmacy Warfarin Dosing Note S:Pharmacy consulted to assist with anticoagulation therapy started 07/16/20 with target INR: 1.6 - 2.5 O:DELMIDONAVAN Koch is a 65 year old M with MARK (revision of left femoral stem) LABS: Last INR: 1.3 Last HGB: - Last HCT: - Last PLT: - Last dose of 7.5 mg given on 07/17/20 at 1824 A:INR of 1.3 is below desired range. Target range for this patient is: 1.6 - 2.5 P: Warfarin dose: 5 mg Today at 1600 Bridge Therapy: none Next INR due tomorrow Pharmacy anticoagulation service will continue to follow. Monet Stevens RPH, 07/18/20 [id number]
[2020-07-18] MEDS ORDERED: WARFARIN 5 MG TABLET. PO ONE (16:00)
[2020-07-18] MEDS ORDERED: BISACODYL 10 MG SUPP.RECT. PR PRN (16:00)
[2020-07-18 18:31] VITALS: BP 103/63
[2020-07-19] MEDS: ACETAMINOPHEN 500 MG TABLET PO SCH ×3 (03:57→15:00)
[2020-07-19] MEDS: oxyCODONE IR 5 MG TABLET PO PRN ×2 (03:57→10:08)
[2020-07-19] MEDS: LEVOTHYROXINE 175 MCG TABLET PO SCH (06:13)
[2020-07-19] MEDS: traMADol 50 MG TABLET PO SCH ×2 (06:14→12:00)
[2020-07-19] MEDS: GABAPENTIN 100 MG CAPSULE. PO SCH ×2 (06:14→10:11)
[2020-07-19 06:22] VITALS: BP 102/61
[2020-07-19] MEDS: FERROUS SULFATE 325 MG TABLET. PO SCH ×2 (08:57→17:00)
[2020-07-19] MEDS: MELOXICAM 7.5 MG TABLET PO SCH (08:57)
[2020-07-19] MEDS: MULTIVITAMIN with MINERAL TABLET. PO SCH (08:58)
[2020-07-19] MEDS: SENNOSIDES/DOCUSATE 8.6/50MG TABLET. PO SCH (08:58)
[2020-07-19 09:07] LABS: HEMATOCRIT 40.2 % (39.0-53.0); HEMOGLOBIN 13.4 g/dL (13.0-17.5)
[2020-07-19 09:25] LABS: PROTHROMBIN TIME PATIENT 17.4 SEC (11.7-14.0)
--- NOTE | 2020-07-19 10:38 | NUR ---
Renato is doing well this am. he is rating his pain 3-4. pain is controlled with oral medications. he broke out in a fine rash on his torso front and back. "I forgot that the gabapentin causes this. " added to his allergy. refused Benadryl. lotion applied front and back.
--- NOTE | 2020-07-19 10:46 | NUR ---
Pharmacy Warfarin Dosing Note S:Pharmacy consulted to assist with anticoagulation therapy started 07/16/20 with target INR: 1.6 - 2.5 O:DONAVAN AWAD is a 65 year old M with MARK revision of left femoral stem Allergies:gabapentin Height: 5 feet, 10 inches Weight: 93.4 kg LABS: Last INR: 1.5 Last HGB: 13.4 Last HCT: - Last PLT: - Ongoing Drug Interactions: A:INR below desired Range. Target Range for this patient is: 1.6 - 2.5 P: Warfarin dose: 5 mg will be given today prior to discharge. DISCHARGE WITH 5MG #42 . Draw INR on Mondays x5. Dose will be adjust base on INR level. End of therapy 08/27/20 (6 weeks of therapy). Indication for warfarin is prevention of VTE after major joint surgery. CARO LUNDBERG [facility], 07/19/20 [id number]
[2020-07-19] MEDS ORDERED: WARF-31 PO (10:57)
--- NOTE | 2020-07-19 11:34 | NUR ---
became nauseated during therapy. returned to bed states vitamins usually make him nauseated. will allow to rest at this time.
[2020-07-19] MEDS ORDERED: OXYC5CAP PO (12:40)
[2020-07-19] MEDS ORDERED: TRAM50TA PO (12:40)
--- NOTE | 2020-07-19 12:44 | DISCH ---
DISCHARGE INSTRUCTIONS Condition on Discharge Condition on Discharge: Stable Activity After Discharge Activity Instructions for Disc: Other, see below (Maintain hip precautions of avoiding extreme flexion and avoiding any internal rotation) Bathing Instructions: Shower-keep dressing dry, No Tub Bath until see Exercise Instruction after Dis: Exercise per therapy, Progress as tolerated Driving Instructions after Dis: Do not drive Weight Bearing Status after Di: As tolerated Diet after Discharge Diet after Discharge: Regular Additional Diet Restrictions: resume home diet Diet Texture: Regular Wound Incision Care Wound/Incision Care: Ice to area for comfort, Do not change dressing (Call if dressing is saturated, if not maintain dressing and when suction machine stops cut tail and tape over to maintain it sealed) Other wound/incision instructi: remove battery pack on Monday 07/24 unscrew tubing; tape end down Community/Resources/Services Services at Discharge: Home Health Care Services, PT EVALUATE & TREAT, OT Evaluate & Treat, RN Services Contacting the after DC Call your doctor for: Concerns you may have Follow-Up Follow Up With: F/U with Dean Agarwal in [place] as scheduled Treatment/Equipment after DC Adaptive Equipment Issued: None Comment: INR to be drawn every thursday for 6 wks begin on 2/ Warfarin Follow-Up Warfarin Follow UP: [facility] is managing coumadin ??? call ALYSSIA MARLEY MD Jul 19, 2020 12:44
[2020-07-19] MEDS ORDERED: WARFARIN 5 MG TABLET. PO ONE (14:00)
[2020-07-19 15:15] VITALS: BP 122/76
--- NOTE | 2020-07-19 15:48 | NUR ---
continues to be nauseated and feels faint after trying to dry heave. 97.6 46 the 1st time and 49 ( heart rate) blood pressure 122/76 98% on r/a. agrees to take a Zofran po -given
--- NOTE | 2020-07-19 16:23 | EKG ---
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
--- NOTE | 2020-07-19 17:19 | NUR ---
ekg completed. Ginny from Dr. Mcmanus returned all. Looked at new EKG and previous Ekg and there was no change. He is ok to go home from their viewpoint. dr. Corral notified and ok to go home. Addendum: 07/19/20 at 1722 by RONEL LAWSON RN feeling better; ate supper. no nausea
[2020-07-19 17:31] VITALS: BP 128/65
--- NOTE | 2020-07-19 17:58 | NUR ---
reviewed discharge instructions with patient and . instructed to go see Dr. Mcmanus in the next month. verbalized understanding of discharge instructions, restrictions to activities of daily living such as driving; lab draws; home health. dismissed to home with and [facility]
--- NOTE | 2020-07-19 23:32 | DS ---
DATE OF DISCHARGE: 07/19/2020 PRINCIPAL DIAGNOSIS: Left hip pain and acquired leg length discrepancy with a previous left total hip arthroplasty. PROCEDURE: Revision left femoral stem of left hip arthroplasty. DISPOSITION: Home with home health. DISPOSITION MEDICATIONS: Include oxycodone 5 mg p.o. q. 4 hours p.r.n. severe pain, tramadol 50 mg p.o. q. 4 hours p.r.n. moderate pain, warfarin as directed by anticoagulation clinic, resume preoperative medications. ACTIVITY: Weightbearing as tolerated. Standard total hip precautions. Maintain JAG dressing, call if saturated, otherwise maintain dressing and a cut off tail when suction machine quits and tape over to maintain seal. BRIEF DESCRIPTION OF HOSPITAL COURSE: The patient underwent uncomplicated revision of a femoral stem of total hip arthroplasty. Leg lengths were evened up. He was under less pain overall than preoperatively, was very pleased with his leg lengths, was getting around well with physical therapy. Postoperatively, he was having some significant nausea and required adjustment of his pain medications. On postop day #1, he was doing very well and he had an episode of nausea and there was some concern for bradycardia. EKG was obtained, but there were no changes and he subsequently resolved with nausea medication. No evidence of any chest pain, shortness of breath or weakness and was noted to be eating well, getting around safely and was discharged home in stable condition. ALYSSIA MARLEY MD DR: RAYNE/capo JOB#: [id number] / [id number]
== END 2020-07-19 18:09 | disposition home or self-care (01) ==
LOC: SURG 11:03 → 4 SOUTHEST 15:56
PROVIDERS: ADMIT Orthopaedic Surgery; ATTEND Orthopaedic Surgery
DX: T84.84XA Pain due to internal orthopedic prosthetic devices, implants and grafts, initial encounter (principal); M25.552 Pain in left hip; M16.12 Unilateral primary osteoarthritis, left hip; M54.16 Radiculopathy, lumbar region; Z79.01 Long term (current) use of anticoagulants; Z96.642 Presence of left artificial hip joint; Z79.899 Other long term (current) drug therapy; Y83.8 Other surgical procedures as the cause of abnormal reaction of the patient, or of later complication, without mention of misadventure at the time of the procedure; Y92.89 Other specified places as the place of occurrence of the external cause
CPT/HCPCS: 27138; 36415; 73502; 84443; 85014; 85018; 85610; 85730; 86850; 86900; 86901; 93005; 96365; 96375; 96376; 97116; 97150; 97162; 97166; 97530; 97535; G0378; G0379; J0171; J0690; J1100; J1885; J2270; J2405; J2704; J2795; J3010; J3370; J3490; C1894

== ENCOUNTER → 2020-11-21 | Outpatient (CLI) | payer OTHER, MEDICARE ==
[~2020-11-21] MED LIST changes: -ACETAMINOPHEN 500 MG TABLET PO PRN; -GABAPENTIN 300 MG CAPSULE. PO PRN; +GADOTERATE 7.5 MMOL/15ML VIAL. IVP ONE; -HYDROmorphone 2 MG/ML VIAL IV PRN; -LIDOCAINE 1% PF 2 ML VIAL. ID PRN; -LIDOCAINE 2% PF 5 ML VIAL. ONE; -MELOXICAM 7.5 MG TABLET PO PRN; -MORPHINE SULFATE 5 MG, KETOROLAC 30MG VIAL 30 MG, ROPIVacaine 0.5% PF 60 ML, EPINEPHrin... INT ART ONE; -ONDANSETRON PF 4 MG/2 ML VIAL. IV PRN; -PROCHLORPERAZINE 10 MG/2 ML VIAL. IV PRN; -PROPOFOL 10 MG/ML (20ML) VIAL. IV ONE; -TRANEXAMIC ACID 1,000 MG in IV NS 50ML -- 1ST BAG INJ ONE; -TRANEXAMIC ACID 1,000 MG in IV NS 50ML -- 2ND BAG INJ ONE; +WARF-31 PO; -fentaNYL PF VIAL 100 MCG/2 ML VIAL IV PRN; -fentaNYL PF VIAL 100 MCG/2 ML VIAL ONE
--- NOTE | 2020-11-21 17:52 | KCIC ---
MRI of the lumbar spine without and with contrast 11/21/2020 CLINICAL HISTORY: Low back pain which radiates down the left leg. History of previous lumbar spine vazquez rgery. TECHNIQUE: Unenhanced T1-weighted and T2-weighted sagittal and axial and inversion recovery sagittal images of the lumbar spine were obtained. After the intravenous administration 18 cc of Clariscan, en hanced T1-weighted sagittal and axial images of the lumbar spine were obtained. FINDINGS: Comparison study is dated 02/10/2019. Minimal S-shaped curvature of the thoracolumbar spine is seen. Degenerative signal changes are seen i nvolving all of the disks of the lumbar spine. Degenerative signal changes are seen within the marrow surrounding these discs. The conus medullaris is normal morphology, position, and signal characteris tics. At the L1-2, L2-3 and L3-4 disc spaces there are minimal to mild generalized disc bulges. Degenerativ e changes are seen involving the facet joints bilaterally. There is mild ligamentum flavum hypertroph y bilaterally. These findings do not result in significant central spinal canal or neural foraminal s tenosis. At the L4-5 disc space the patient is post left hemilaminectomy. There is a mild generalized disc bul ge. Degenerative changes are seen involving the facet joints bilaterally. These findings do not resul t in significant central spinal canal or neural foraminal stenosis. At the L5-S1 disc space there is a mild to moderate generalized disc bulge. Degenerative changes are seen involving the facet joints bilaterally. There is mild ligamentum flavum hypertrophy bilaterally. These findings do not result in significant central spinal canal or neural foraminal stenosis. Since the previous examination there has been no significant interval change. IMPRESSION: 1. Post left hemilaminectomy at L4-5. 2. The changes of degenerative disc disease are seen throughout the lumbar spine. These findings do n ot result in significant central spinal canal or neural foraminal stenosis. Electronically signed by: Khris Bardales MD (11/21/2020 5:49 PM) [id number]
== END ==
LOC: KCIC MRI 14:56
PROVIDERS: ATTEND Physician Assistant
DX: M47.26 Other spondylosis with radiculopathy, lumbar region (principal)
CPT/HCPCS: 72158; 82565; A9575

== ENCOUNTER → 2020-12-12 | Outpatient (CLI) | payer OTHER, MEDICARE ==
[~2020-12-12] MED LIST changes: +AMIT25TA PO; -GADOTERATE 7.5 MMOL/15ML VIAL. IVP ONE; +IOHEXOL 180 MG/ML 10 ML VIAL. ONE; +methylPREDNISolone ACETATE 40 MG/ML VIAL. ONE
--- NOTE | 2020-12-12 15:03 | PDOC4 ---
Procedure Note: Procedure Note: Patient was consented for lumbar epidural steroid injection. Risks were discussed including but not limited to: Bleeding, infection, possibility of epidural hematoma and subsequent neurological compromise, dural puncture, headaches, spinal cord and/or nerve damage, side effects of steroid medication, and poor results regarding pain control. Patient understands and wished to proceed. Procedure is lumbar epidural steroid injection under local anesthetic using sterile prep and drape at the L5-S1 level using C-arm fluoroscopic guidance in both AP and lateral views medications injected is 120 mg Depo-Medrol +10mL preservative-free normal saline and 2 mL contrast- condition at discharge is stable patient tolerated procedure well had no complications. RENATA WU MD Dec 12, 2020 15:03
--- NOTE | 2020-12-12 15:03 | PDOC ---
Progress Note - Pain Clinic Date of Service: DOS: DATE: 12/12/20 TIME: 14:59 Diagnosis: Dx: Lumbar radiculopathy with lumbar degenerative disease lumbar postlaminectomy syndrome History or Present Illness: HPI: 65-year-old male returns for follow-up status post lumbar epidural steroid injections in the past as well as left knee joint injections patient has since had knee surgery as well as left hip replacement in 2019 patient returns last seen here in 2019October 23. Patient reports that the pain is now in the low back and left lower extremity posterior gluteus lateral thigh posterior calf posterior and lateral lower leg into the ankle patient report is worse with walking standing changing positions sometimes better when he lays down but occasionally will wake him from sleep at night patient reports he has been taking amitriptyline which helps him sleep, but is not been using it intermittently. Patient reports no new motor or sensory deficits no new bowel or bladder incontinence or other complaints. Physical Exam: VS: Blood pressure is 130/94 pulse 81 respirations 16 temperature 90.3 F height is 5 feet 10 inches weight is 205 pounds PE: PHYSICAL EXAMINATION: GENERAL: The patient is awake, alert, oriented, appropriate, very pleasant in demeanor HEENT: Shows normocephalic, atraumatic. Extraocular movements are intact and symmetrical. Patient wearing eyeglasses. Oral cavity: Mucous membranes moist and pink. Dentition is intact. NECK: Shows anterior throat supple without palpable lymphadenopathy noted. Swallow reflex symmetrical. CHEST: Shows normal on inspection. Breath sounds are clear bilaterally, no rales rhonchi or wheezes auscultated. HEART: Shows S1, S2 clear. No murmurs auscultated. ABDOMEN: Soft, nontender, nondistended, obese. No palpable organomegaly is noted. No rebound or guarding demonstrated. BACK: Shows spine grossly in the midline. Normal-appearing cervical lordotic curvature. There is slightly increased thoracic kyphosis, some minor flattening of the lumbar lordotic curvature. Lumbar paraspinous muscles show symmetrical on inspection, on palpation shows some moderate tenderness diffusely throughout the upper, middle and lower distribution of the paraspinous muscles bilaterally and also into the lower thoracic paraspinous musculature, firm and tender, but without specific trigger points, without radiation of pain. The patient has good rotational motion of the lumbar spine, both laterally as well as extension and flexion without significant difficulty. No tenderness over the spinous processes, sacrum or sacroiliac regions. EXTREMITIES: Lower extremities show deep tendon reflexes 2+ in the patellar and tendo calcaneus tendons. Motor exam is 5 on a scale of 5 with right dorsiflexion, extension, quadriceps and hamstring flexion and 4/5 on the left. Peripheral pulses are 1+ posterior tibial. No peripheral edema is noted bilater ally. Lower extremities are warm and dry to touch, equal in color and appearance. SKIN: Shows warm and dry, good turgor. No edema. No sores, rashes or bruising throughout. Procedure: Procedure: Options were discussed with the patient. Patient chart was reviewed as her current medication regimen updated current review of systems updated today as well. We will proceed with a lumbar epidural steroid injections today with fluoroscopic guidance. Risks were discussed including but not limited to: Bleeding, infection, possibility of epidural hematoma and subsequent neurological compromise, dural puncture, headaches, spinal cord and/or nerve damage, side effects of steroid medication, and poor results regarding pain control. Patient understands and wished to proceed. Patient will return to the clinic in approximate 2 weeks for follow-up, was counseled as return appointment activity level and side effects to be aware of. Medication Injected: Med Injected: Procedure is lumbar epidural steroid injection under local anesthetic using sterile prep and drape at the L5 S1 level using C-arm fluoroscopic guidance in both AP and lateral views medications injected is 120 mg Depo-Medrol +10mL preservative-free normal saline and 2 mL contrast- condition at discharge is stable patient tolerated procedure well had no complications. Condition at Discharge: Condition at Discharge: Condition at discharge stable, patient already procedure well and had no complications. RENATA WU MD Dec 12, 2020 15:02
== END ==
LOC: PNCL 13:56
PROVIDERS: ATTEND Anesthesiology
DX: M51.17 Intervertebral disc disorders with radiculopathy, lumbosacral region (principal); M96.1 Postlaminectomy syndrome, not elsewhere classified; K21.9 Gastro-esophageal reflux disease without esophagitis; E03.9 Hypothyroidism, unspecified; M19.90 Unspecified osteoarthritis, unspecified site; F17.210 Nicotine dependence, cigarettes, uncomplicated; Z79.899 Other long term (current) drug therapy; Z96.642 Presence of left artificial hip joint; Z98.890 Other specified postprocedural states
CPT/HCPCS: 62323; J1030; Q9965

== ENCOUNTER → 2020-12-27 | Outpatient (CLI) | payer OTHER, MEDICARE ==
[~2020-12-27] MED LIST changes: +methylPREDNISolone ACETATE 80 MG/ML VIAL. ONE
--- NOTE | 2020-12-27 14:50 | PDOC ---
Progress Note - Pain Clinic Date of Service: DOS: DATE: 12/27/20 TIME: 14:47 Diagnosis: Dx: Lumbar radiculopathy with lumbar degenerative disease and lumbar postlaminectomy syndrome Left hip joint pain with osteoarthritis Left knee joint pain with osteoarthritis History or Present Illness: HPI: 65-year-old male returns for follow-up status post lumbar epidural steroid injection x1. Patient reports 75% improvement in his back but his left lower extremity still significantly painful. 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 Patient reports from the mid thigh to the knee down to mostly in the posterior and lateral aspect and posterior calf is tight and burning can be constant with walking standing changing positions. Patient reports he is not taking amitriptyline over the past few days as he was trying to see if this was helping his pain although it was helping him sleep and his sleep is still been fairly consistent although he is only been off of it for a few days. Patient has added new medication of Aleve 2 tablets twice daily which she reports does decrease the pain to some extent in the leg but not completely. Patient reports it still burning and aching and constant with activity. Ports no new motor or sensory deficits no new bowel or bladder incontinence. Physical Exam: VS: Blood pressure is 119/73 pulse 63 respirations 18 temperature 98.3 F weight is 206 pounds PE: PHYSICAL EXAMINATION: GENERAL: The patient is awake, alert, oriented, appropriate, very pleasant in demeanor. HEENT: Shows normocephalic, atraumatic. Extraocular movements are intact and symmetrical. Oral cavity: Mucous membranes moist and pink. Dentition is intact. NECK: Shows anterior throat supple without palpable lymphadenopathy noted. Swallow reflex symmetrical. CHEST: Shows normal on inspection. Breath sounds are clear bilaterally, no rales or rhonchi. HEART: Shows S1, S2 clear. No murmurs auscultated. ABDOMEN: Soft, nontender, nondistended, obese. BACK: Shows spine grossly in the midline. Normal-appearing cervical lordotic curvature. There is slightly increased thoracic kyphosis, some minor flattening of the lumbar lordotic curvature. Lumbar paraspinous muscles show symmetrical on inspection, on palpation shows some moderate tenderness diffusely throughout the upper, middle and lower distribution of the paraspinous muscles, but without specific trigger points, without radiation of pain. The patient has good rotational motion of the lumbar spine, both laterally as well as extension and flexion without significant difficulty. EXTREMITIES: Lower extremities show deep tendon reflexes 2+ in the patellar and tendo calcaneus tendons. Motor exam is 5 on a scale of 5 with right dorsiflexion, extension, quadriceps and hamstring flexion and 4/5 on the left. Peripheral pulses are 1+ posterior tibial. No peripheral edema is noted bilaterally. Lower extremities are warm and dry. SKIN: Shows warm and dry, good turgor. No edema. No sores, rashes or bruising throughout. Procedure: Procedure: Options discussed with the patient. Patient chart reviews her current medication regimen updated current review of systems updated today as well. We will proceed with a second in a series lumbar epidural steroid ejections today with fluoroscopic guidance. Risks were discussed including but not limited to: Bleeding, infection, possibility of epidural hematoma and subsequent neurological compromise, dural puncture, headaches, spinal cord and/or nerve damage, side effects of steroid medication, and poor results regarding pain control. Patient understands and wished to proceed. Patient will return to clinic in approximate 2 weeks for follow-up, was counseled as return appointment activity level and side effects to be aware of. Medication Injected: Med Injected: Procedure is lumbar epidural steroid injection under local anesthetic using sterile prep and drape at the L5-S1 level using C-arm fluoroscopic guidance in both AP and lateral views medications injected is 120 mg Depo-Medrol +10mL preservative-free normal saline and 2 mL contrast- condition at discharge is stable patient tolerated procedure well had no complications. Condition at Discharge: Condition at Discharge: Condition at discharge stable, patient already procedure well and had no complications. RENATA WU MD Dec 27, 2020 14:50
--- NOTE | 2020-12-27 14:51 | PDOC4 ---
Procedure Note: Procedure Note: Patient was consented for lumbar epidural steroid injection. Risks were discussed including but not limited to: Bleeding, infection, possibility of epidural hematoma and subsequent neurological compromise, dural puncture, headaches, spinal cord and/or nerve damage, side effects of steroid medication, and poor results regarding pain control. Patient understands and wished to proceed. Procedure is lumbar epidural steroid injection under local anesthetic using sterile prep and drape at the L5-S1 level using C-arm fluoroscopic guidance in both AP and lateral views medications injected is 120 mg Depo-Medrol +10mL preservative-free normal saline and 2 mL contrast- condition at discharge is stable patient tolerated procedure well had no complications. RENATA WU MD Dec 27, 2020 14:51
== END | disposition home or self-care (01) ==
LOC: PNCL 13:53
PROVIDERS: ATTEND Anesthesiology
DX: M51.16 Intervertebral disc disorders with radiculopathy, lumbar region (principal); M96.1 Postlaminectomy syndrome, not elsewhere classified; M16.12 Unilateral primary osteoarthritis, left hip; M17.12 Unilateral primary osteoarthritis, left knee; K21.9 Gastro-esophageal reflux disease without esophagitis; M19.90 Unspecified osteoarthritis, unspecified site; E03.9 Hypothyroidism, unspecified; F17.210 Nicotine dependence, cigarettes, uncomplicated; Z79.899 Other long term (current) drug therapy; Z98.890 Other specified postprocedural states; Z88.8 Allergy status to other drugs, medicaments and biological substances
CPT/HCPCS: 62323; J1030; J1040; Q9965

== ENCOUNTER → 2021-01-10 | Outpatient (CLI) | payer OTHER, MEDICARE ==
[~2021-01-10] MED LIST changes: +BUPIVACAINE MPF 0.25% 10 ML VIAL. ONE; -methylPREDNISolone ACETATE 40 MG/ML VIAL. ONE
--- NOTE | 2021-01-10 14:57 | PDOC ---
Progress Note - Pain Clinic Date of Service: DOS: DATE: 01/10/21 TIME: 14:50 Diagnosis: Dx: Lumbar radiculopathy with lumbar degenerative disease lumbar postlaminectomy syndrome Left hip joint pain with osteoarthritis Left knee joint pain with osteoarthritis History or Present Illness: HPI: 65-year-old male returns for follow-up status post lumbar epidural steroid injection x2. Patient reports constant 5% improvement with pain returning and now the pain is new and changed in his left knee only and radiating inferior to the knee mainly on the lateral aspect and medial aspect of the left lower leg. Patient reports worse with walking standing weightbearing changing positions putting all his weight on his left leg such as climbing a stair or step patient reports is a 3 on scale 10 is worst on average is a 3 and 2 at its least and 3 today patient reports is tingling and burning and some hypersensitivity of the skin over the left knee as well with clothing and light touch. Patient reports it wakes him from sleep at least once or twice a night especially if he sleeps on his right or left side reports that his back is doing quite a bit better but the left leg is now just from the knee inferiorly to the ankle and lateral aspect of the foot. Patient reports no other changes no bowel or bladder incontinence or other complaints. Physical Exam: VS: Blood pressure is 137/93 pulse 59 respirations 18 temperature 90.5 F weight is 210 pounds PE: PHYSICAL EXAMINATION: GENERAL: The patient is awake, alert, oriented, appropriate, very pleasant in demeanor. HEENT: Shows normocephalic, atraumatic. Extraocular movements are intact and symmetrical. Oral cavity: Mucous membranes moist and pink. Dentition is intact. NECK: Shows anterior throat supple without palpable lymphadenopathy noted. Swallow reflex symmetrical. CHEST: Shows normal on inspection. Breath sounds are clear bilaterally, no rales rhonchi wheeze. HEART: Shows S1, S2 clear. No murmurs auscultated. ABDOMEN: Soft, nontender, nondistended, obese. BACK: Shows spine grossly in the midline. Normal-appearing cervical lordotic curvature. There is slightly increased thoracic kyphosis, some minor flattening of the lumbar lordotic curvature. Lumbar paraspinous muscles show symmetrical on inspection, on palpation shows some moderate tenderness diffusely throughout the upper, middle and lower distribution of the paraspinous muscles, but without specific trigger points, without radiation of pain. The patient has good rotational motion of the lumbar spine, both laterally as well as extension and flexion without significant difficulty. No tenderness over the spinous processes, sacrum or sacroiliac regions. EXTREMITIES: Lower extremities show deep tendon reflexes 2+ in the patellar and tendo calcaneus tendons. Motor exam is 5 on a scale of 5 with right dorsiflexion, extension, quadriceps and hamstring flexion and 4/5 on the left. Peripheral pulses are 1 posterior tibial. No peripheral edema is noted bilaterally. Lower extremities are warm and dry to touch, equal in color and appearance. Patient is left knee shows some moderate tenderness with palpation over the medial collateral ligament as well as the inferior aspect the patellar tendon. Range of motion shows good range of motion without crepitus or ratcheting. SKIN: Shows warm and dry, good turgor. No edema. No sores, rashes or bruising throughout. Procedure: Procedure: Options were discussed with the patient. Patient's old chart reviews her curr ent medication regimen updated current review of systems updated today as well. We will proceed with a left intra-articular knee joint injection today with fluoroscopic guidance. Risk were discussed including but not limited to bleeding infection possibly intravascular injection sequelae spread of local anesthetic numbness side effects of steroid medication exposure to fluoroscopy and portals regarding pain control. Patient understands wished to proceed. Patient return to clinic in approximate 2 weeks for follow-up, was counseled as to return appointment activity level and side effects to be aware of. Medication Injected: Med Injected: Under sterile prep and drape patient in supine position using C-arm fluoroscopic guidance patient's left knee was sterilely prepped and draped in usual fashion. Using C-arm fluoroscopy the medial aspect of the left knee joint was identified and visualized and using 1% lidocaine 25-gauge needle of the area of the skin overlying the medial knee compartment was anesthetized. Using a 22-gauge quickie needle with stylette the joint was entered under direct visualization without difficulty. Stylet was removed at this time 1.5 cc of contrast was then injected with good spread within the knee joint itself without washout or uptake. At this time solution containing 3 cc of 0.25 bupivacaine and 80 mg Depo-Medrol, was then injected. Needle was withdrawn and sterile bandage applied. Patient tolerated procedure well and had no complications. Condition at Discharge: Condition at Discharge: Condition at discharge stable, patient tolerated procedure well and had no complications. RENATA WU MD Jan 10, 2021 14:57
--- NOTE | 2021-01-10 14:58 | PDOC4 ---
Procedure Note: Procedure Note: Patient is consented for left intra-articular knee joint injection with fluoroscopic guidance. Risk were discussed including not limited to bleeding infection possibility of intravascular injection sequelae spread local anesthetic numbness side effects steroid medication exposure fluoroscopy and portals regarding pain control. Patient understands wished to proceed. Under sterile prep and drape patient in supine position using C-arm fluoroscopic guidance patient's left knee was sterilely prepped and draped in usual fashion. Using C-arm fluoroscopy the medial aspect of the left knee joint was identified and visualized and using 1% lidocaine 25-gauge needle of the area of the skin overlying the medial knee compartment was anesthetized. Using a 22-gauge quickie needle with stylette the joint was entered under direct visualization without difficulty. Stylet was removed at this time 1.5 cc of contrast was then injected with good spread within the knee joint itself without washout or uptake. At this time solution containing 3 cc of 0.25 bupivacaine and 80 mg Depo-Medrol, was then injected. Needle was withdrawn and sterile bandage applied. Patient tolerated procedure well and had no complications. RENATA WU MD Jan 10, 2021 14:58
== END | disposition home or self-care (01) ==
LOC: PNCL 13:31
PROVIDERS: ATTEND Anesthesiology
DX: M17.12 Unilateral primary osteoarthritis, left knee (principal); M16.12 Unilateral primary osteoarthritis, left hip; M51.16 Intervertebral disc disorders with radiculopathy, lumbar region; M96.1 Postlaminectomy syndrome, not elsewhere classified; K21.9 Gastro-esophageal reflux disease without esophagitis; E03.9 Hypothyroidism, unspecified; F17.210 Nicotine dependence, cigarettes, uncomplicated; Z79.899 Other long term (current) drug therapy; Z98.890 Other specified postprocedural states; Z88.8 Allergy status to other drugs, medicaments and biological substances; Z82.49 Family history of ischemic heart disease and other diseases of the circulatory system
CPT/HCPCS: 20610; 77002; J1040; J3490; Q9965

== ENCOUNTER → 2021-01-24 | Outpatient (CLI) | payer OTHER, MEDICARE ==
[~2021-01-24] MED LIST changes: -BUPIVACAINE MPF 0.25% 10 ML VIAL. ONE; -IOHEXOL 180 MG/ML 10 ML VIAL. ONE; -methylPREDNISolone ACETATE 80 MG/ML VIAL. ONE
--- NOTE | 2021-01-24 17:11 | KCIC ---
EXAM: MRI left KNEE DATE: 01/24/2021 2:45 PM CLINICAL INDICATION: LEFT KNEE PAIN / Spl. Instructions: / History: Lt knee pain, lt leg pain, burni ng sensation over 2yrs now.Tightness in leg COMPARISON: None. TECHNIQUE: Multiplanar, multisequence MRI of the left knee was performed without contrast. FINDINGS: No knee joint effusion. Trace Delvalle's cyst. Neutral patellar tracking. Extensor mechanism is intact. Trace amount patellar fat pad edema may be s een with anterior knee pain/impingement. ACL and PCL are intact. MCL, fibular collateral ligament, biceps femoris and IT band are intact. Popliteus is intact, normal in signal and morphology. Medial meniscus: There is blunting of the posterior horn-root medial meniscus. Oblique tear of the faiza dy-posterior horn medial meniscus. Lateral meniscus: Intact Intermittent chondral fissuring patellar apex. Chondral thinning medial femoral condyle. No fracture or osteonecrosis. IMPRESSION: 1. Complex tear body-posterior horn medial meniscus with oblique components. 2. Mild suprapatellar fat pad edema may be seen with edema. Electronically signed by: Epi Jose MD (01/24/2021 5:08 PM) [id number]
--- NOTE | 2021-01-25 12:15 | KCIC ---
EXAMINATION: MRI LEFT LOWER EXTREMITY JOINT WITHOUT INDICATIONS: Left hip pain, left knee pain, left leg pain and tightness for 2 years. TECHNIQUE: Multiplanar multisequence MRI of the left hip was obtained without contrast. COMPARISON: MR left hip 10/17/2019 FINDINGS: There is a new left total hip prosthesis resulting in susceptibility artifact. No evidence of peripro sthetic fracture. There is a T2 hyperintense, T1 hypointense fluid collection overlying the greater t rochanter along the surgical incision. This measures 3.1 x 2.3 x 0.8 cm. No fluid collection or soft tissue mass directly around the prosthesis and no definite hip joint effusion. No acute fracture visu alized. There is mild degenerative joint disease of the right hip and degenerative changes of the lum bar spine. Tendons are grossly intact. Muscles are unremarkable. Visualized pelvic contents are unrem arkable. IMPRESSION: 1. Interval surgical changes of left total hip arthroplasty without evidence of complication. 2. Small fluid collection overlying the greater trochanter along the surgical incision, could be post operative or bursitis. Electronically signed by: Meredith Dey MD (01/25/2021 12:13 PM) [id number]
== END | disposition home or self-care (01) ==
LOC: KCIC MRI 14:18
PROVIDERS: ATTEND Anesthesiology
DX: S83.232A Complex tear of medial meniscus, current injury, left knee, initial encounter (principal); M16.11 Unilateral primary osteoarthritis, right hip; M79.4 Hypertrophy of (infrapatellar) fat pad; M47.816 Spondylosis without myelopathy or radiculopathy, lumbar region; Z96.642 Presence of left artificial hip joint; X58.XXXA Exposure to other specified factors, initial encounter; Y93.89 Activity, other specified; Y92.89 Other specified places as the place of occurrence of the external cause; Y99.8 Other external cause status
CPT/HCPCS: 73721

== ENCOUNTER → 2021-07-03 | Outpatient (CLI) | payer OTHER, MEDICARE ==
[2021-07-03 12:57] LABS: ALBUMIN 3.5 g/dL (3.4-5.0); CALCIUM 8.6 mg/dL (8.5-10.1); CREATININE 0.8 mg/dL (0.7-1.3); GFR 96.1; POTASSIUM 4.3 mmol/L (3.5-5.1)
[2021-07-03 13:04] LABS: BASO # 0.1 x10^3/uL (0.0-0.2); BASO % 1 % (0-3); EOS # 0.2 x10^3/uL (0.0-0.7); EOS % 2 % (0-3); HEMATOCRIT 45.8 % (39.0-53.0); HEMOGLOBIN 15.7 g/dL (13.0-17.5); LYMPH # 2.5 x10^3/uL (1.0-4.8); LYMPH % 25 % (24-48); MEAN CORPUSCULAR HEMOGLOBIN 30 pg (25-35); MEAN CORPUSCULAR HGB CONC 34 g/dL (31-37); MEAN CORPUSCULAR VOLUME 88 fL (79-100); MONO # 0.8 x10^3/uL (0.0-1.1); MONO % 8 % (0-9); NEUT # 6.4 x10^3/uL (1.8-7.7); NEUT % 64 % (31-73); PLATELET COUNT 247 x10^3/uL (140-400); RED BLOOD COUNT 5.23 x10^6/uL (4.30-5.70); RED CELL DISTRIBUTION WIDTH 13.6 % (11.5-14.5)
[2021-07-03 13:15] LABS: PROTHROMBIN TIME PATIENT 12.4 SEC (11.7-14.0)
--- NOTE | 2021-07-03 13:21 | RAD ---
EXAM: Chest, 2 views. HISTORY: Preoperative evaluation. COMPARISON: 12/26/2019 FINDINGS: 2 views of the chest are obtained. There is no infiltrate, pleural effusion or pneumothorax . The heart is normal in size. IMPRESSION: No acute pulmonary finding. Electronically signed by: Odalys Riojas MD (07/03/2021 1:18 PM) [id number]
--- NOTE | 2021-07-03 13:27 | EKG ---
[facility] [address] [place] [address] Test Date: 2021-07-03 Test Time: 13:00:05 Pat Name: DONAVAN AWAD Department: Room: Gender: Digital Content Marketing Manager: : 1955 Requested By: JOAN ANDRE Order Number: [id number] Reading MD: Marek Conteh Measurements Intervals [place] Rate: 61 P: 56 RI: 198 QRS: 6 QRSD: 70 T: 62 QT: 446 QTc: 451 Interpretive Statements SINUS RHYTHM ATRIAL PREMATURE COMPLEX(ES) T ABNORMALITY IN HIGH LATERAL LEADS Electronically Signed On 07-05-2021 11:51:31 NURSE QUALITY by Marek Conteh
[2021-07-04 01:12] LABS: HEMOGLOBIN A1C 6.5 % (4.8-5.6)
== END ==
LOC: SURGPAT 12:08
PROVIDERS: ATTEND Orthopaedic Surgery
DX: Z01.818 Encounter for other preprocedural examination (principal); R94.31 Abnormal electrocardiogram [ECG] [EKG]; M17.12 Unilateral primary osteoarthritis, left knee
CPT/HCPCS: 36415; 71046; 80048; 82040; 82306; 83036; 85025; 85610; 85651; 85730; 87641; 93005

== ENCOUNTER → 2021-07-18 | Outpatient (CLI) | payer OTHER, MEDICARE | LOC: LAB 10:00 | PROVIDERS: ATTEND Orthopaedic Surgery | DX: U07.1 COVID-19 (principal) | CPT/HCPCS: U0003; U0005 ==

== ENCOUNTER → 2021-08-13 | Outpatient (CLI) | payer OTHER, MEDICARE ==
[~2021-08-13] MED LIST changes: +ASPI325T11 PO; +FERR-36 PO; +HYDR200T5 PO
[2021-08-13 10:54] LABS: BASO % 0 % (0-3); EOS # 0.2 x10^3/uL (0.0-0.7); EOS % 2 % (0-3); HEMATOCRIT 44.8 % (39.0-53.0); HEMOGLOBIN 14.8 g/dL (13.0-17.5); LYMPH # 2.2 x10^3/uL (1.0-4.8); LYMPH % 26 % (24-48); MEAN CORPUSCULAR HEMOGLOBIN 29 pg (25-35); MEAN CORPUSCULAR HGB CONC 33 g/dL (31-37); MEAN CORPUSCULAR VOLUME 88 fL (79-100); MONO # 0.8 x10^3/uL (0.0-1.1); MONO % 9 % (0-9); NEUT # 5.3 x10^3/uL (1.8-7.7); NEUT % 63 % (31-73); PLATELET COUNT 246 x10^3/uL (140-400); RED BLOOD COUNT 5.09 x10^6/uL (4.30-5.70); RED CELL DISTRIBUTION WIDTH 13.3 % (11.5-14.5); WHITE BLOOD COUNT 8.4 x10^3/uL (4.0-11.0)
[2021-08-13 11:04] LABS: PROTHROMBIN TIME PATIENT 12.5 SEC (11.7-14.0)
[2021-08-13 11:08] LABS: ALBUMIN 3.5 g/dL (3.4-5.0); CALCIUM 8.6 mg/dL (8.5-10.1); CREATININE 0.9 mg/dL (0.7-1.3); GFR 83.9
[2021-08-14 07:36] LABS: HEMOGLOBIN A1C 6.4 % (4.8-5.6)
== END ==
LOC: SURGPAT 10:09
PROVIDERS: ATTEND Orthopaedic Surgery
DX: Z01.812 Encounter for preprocedural laboratory examination (principal); M17.12 Unilateral primary osteoarthritis, left knee
CPT/HCPCS: 36415; 80048; 82040; 82306; 83036; 85025; 85610; 85651; 85730; 87641

== ENCOUNTER 2021-08-19 07:22 | Inpatient (IN) | payer OTHER, MEDICARE ==
[2021-07-03 12:33] VITALS: BP 121/83
[2021-08-13 10:50] VITALS: BP 142/80
[2021-08-19] VITALS (9 sets, daily range): BP systolic 108–162; BP diastolic 59–74
[~2021-08-19] VITALS: Ht 180.3 cm; Wt 99.0 kg
[~2021-08-19 07:22] MED LIST changes: +ACETAMINOPHEN 500 MG TABLET PO PRN; -ASPI325T11 PO; +IV RINGERS,LACTATED 1000ML 1,000 ML IV SCH; +MELOXICAM 7.5 MG TABLET PO PRN; +TRANEXAMIC ACID 1,000 MG in IV NS 50ML -- 1ST BAG INJ ONE; +TV=62ml MORPHINE 5 MG, KETOROLAC 30 MG, ROPIV, EPI INT ART ONE; +fentaNYL PF VIAL 100 MCG/2 ML VIAL IVP PRN
[2021-08-19] MEDS ORDERED: TRANEXAMIC ACID 1,000 MG in IV NS 50ML -- 2ND BAG INJ ONE (08:00)
[2021-08-19] MEDS ORDERED: TRANEXAMIC ACID in NS IVPB 100 ML ONE (08:03)
[2021-08-19] MEDS ORDERED: VANCOMYCIN 1 GM VIAL. ONE (08:04)
[2021-08-19] MEDS ORDERED: PROPOFOL 10 MG/ML (20ML) VIAL. IV ONE (08:28)
[2021-08-19] MEDS ORDERED: SEVOFLURANE 61 TO 120 MINUTES. IH ONE (08:28)
[2021-08-19] MEDS ORDERED: fentaNYL PF VIAL 100 MCG/2 ML VIAL ONE (08:28)
[2021-08-19] MEDS ORDERED: SCOPOLAMINE 1.5MG PATCH. TD SCH (09:00)
[2021-08-19] MEDS ORDERED: DEXAMETHASONE SOD PHOS 4 MG/ML VIAL ONE (09:17)
[2021-08-19] MEDS ORDERED: ONDANSETRON PF 4 MG/2 ML VIAL. ONE (09:17)
[2021-08-19] MEDS ORDERED: IV DEXTROSE 5% 250 ML BAG. IV PRN (09:30)
[2021-08-19] MEDS ORDERED: fentaNYL PF VIAL 100 MCG/2 ML VIAL IVP PRN (09:30)
[2021-08-19] MEDS ORDERED: ZOLPIDEM 5 MG TABLET. PO PRN (09:30)
[2021-08-19] MEDS ORDERED: PROCHLORPERAZINE 5 MG TABLET. PO PRN (09:30)
[2021-08-19] MEDS ORDERED: CALCIUM CARBONATE 500 MG TAB.CHEW PO PRN (09:30)
[2021-08-19] MEDS ORDERED: DEXTROSE 50% 25 GM / 50ML DISP.SYRIN. IV PRN (09:30)
[2021-08-19] MEDS ORDERED: diphenhydrAMINE 50 MG/ML VIAL IVP PRN (09:30)
[2021-08-19] MEDS ORDERED: METOCLOPRAMIDE HCL 10 MG/2 ML VIAL. IVP PRN (09:30)
[2021-08-19] MEDS ORDERED: MORPHINE SULFATE 2 MG/ML INJ. IVP PRN (09:30)
[2021-08-19] MEDS ORDERED: 0.9 % SODIUM CHLORIDE 10 ML DISP.SYRIN. IV PRN (09:30)
--- NOTE | 2021-08-19 10:52 | PDOC4 ---
OPERATIVE NOTE Date: Date: Aug 19, 2021 Pre-Op Diagnosis: Degenerative joint disease left knee Post-Op Diagnosis: Same Procedure Performed: Left total knee arthroplasty Surgeon: Gisel Anesthesia Type: General Blood Loss: 75 cc Specimans Obtained: Bone and soft tissue left knee Findings: See dictation Complications: None JOAN ANDRE Jr. DO Aug 19, 2021 10:52
[2021-08-19] MEDS: MULTIVITAMIN with MINERAL TABLET. PO SCH (11:00)
[2021-08-19] MEDS: SENNOSIDES/DOCUSATE 8.6/50MG TABLET. PO SCH ×2 (11:00→17:28)
[2021-08-19] MEDS ORDERED: PROCHLORPERAZINE 10 MG/2 ML VIAL. ONE (11:16)
--- NOTE | 2021-08-19 11:18 | OP ---
DATE OF SURGERY: 08/19/2021 PREOPERATIVE DIAGNOSIS: Degenerative joint disease, left knee. POSTOPERATIVE DIAGNOSIS: Degenerative joint disease, left knee. PROCEDURE: Left total knee arthroplasty, noncemented. SURGEON: Wong Batres Jr, DO REAL ESTATE PHOTOGRAPHER: Bi Marsh. ANESTHESIA: General. COMPLICATIONS: None. ESTIMATED BLOOD LOSS: 75 mL DESCRIPTION OF PROCEDURE: The patient was taken to the operative suite, given a general anesthetic. Left lower extremity was then prepped and draped in a sterile fashion. Incision was made through skin and subcutaneous tissues. This was carefully taken down to the extensor mechanisms. The superficial bleeding was coagulated using a Bovie knife and then the medial parapatellar incision was completed, there were noted to be degenerative changes, especially to the medial and patellofemoral compartments. The lateral was involved, but more medial and patellofemoral at this point. Skeletonization of the proximal tibia was undertaken to relieve contractures. The patella was everted, measured and cut to the appropriate size. The size was noted to be a 35 patella. The drill was made for the noncemented version of the patella. This was taken into flexion and the drill was placed in the distal femur. The intramedullary guide was placed and noted to be in appropriate position and orientation and the cut on the distal femur was made through the appropriate distal cutting guide attached to the anterior femur. After this, bone was removed and the guides were removed. The 4 in 1 positioner guide was then placed, drilled for rotation and was noted to be a size 7. After this was removed, the actual, 4-in-1 cutting guide was placed and the distal femoral cut noted to be flush and held with pins. The anterior, posterior and the chamfer cuts were made. Excess bone was removed. Attention was then directed to the tibia. Medial and lateral meniscal remnants were removed as well as the ACL, the PCL remained stable and intact and external tibial guide was placed in appropriate position and after appropriate retractors were placed, the proximal tibia was cut. This was noted to be a size 6 on the tibial side of the joint. Therefore, this was trialled. He did have instability preoperatively. Therefore, this was improved significantly with an 11 mm polyethylene. This was closed to get the stability in flexion and extension gaps. All trials were then removed. The drill was placed through the distal trial prior to that removal for positioning of the femur and the same keel as well as the drill were placed in the proximal tibia for that component as well. Then, after all the trials were removed, this was copiously irrigated and suctioned dry. The Bovie knife was then used again to coagulate some bleeding superficial. The tibia was impacted first noted to be stable and flush and impacted. Same was done on the femur and the 11 mm poly was placed, secured in the tibial tray and was noted to be stable and again achieved much better stability to the knee throughout the arc of motion of [address] to 125 degrees of flexion with no signs of abnormal gapping. The wound was then thoroughly irrigated with iodine throughout the knee. This was thoroughly irrigated after the iodine was placed initially. After this was noted to be cleared and secured, the medial parapatellar incision was closed in a running fashion using the #1 Stratafix. This was noted to be stable throughout the arc of motion and the tourniquet was deflated midway of closing point. There was no excessive bleeding noted. Therefore, the remainder of the closure continued. Superficial tissues and skin was reapproximated. Sterile dressing was applied. The patient was then taken from the operative bed to the postoperative bed, taken to the PACU in stable condition. PETRA DR: Tolu TID: [id number]
[2021-08-19] MEDS: PROCHLORPERAZINE 10 MG/2 ML VIAL. IVP PRN ×2 (11:19→12:03)
[2021-08-19] MEDS: MORPHINE SULFATE 2 MG/ML INJ. IVP PRN ×2 (11:20→11:32)
--- NOTE | 2021-08-19 11:33 | RAD ---
Left knee 2 views. HISTORY: Arthritis, post arthroplasty 2 views were taken of left knee. There is a total joint prosthesis in place. There is no acute fractu re. There is air in the soft tissues from surgery. IMPRESSION: 1. Operative changes from left knee arthroplasty. Electronically signed by: Rafael Navarro MD (08/19/2021 11:31 AM) [facility]
[2021-08-19] MEDS ORDERED: HYDROmorphone 2 MG/ML INJ. ONE (11:56)
[2021-08-19] MEDS: ONDANSETRON ODT 4 MG TAB.RAPDIS. PO SCH ×2 (12:00→17:29)
[2021-08-19] MEDS: HYDROmorphone 2 MG/ML INJ. IVP PRN ×2 (12:03→12:53)
[2021-08-19] MEDS: IV NORMAL SALINE 1000ML BAG 1,000 ML IV SCH (12:04)
--- NOTE | 2021-08-19 12:40 | PREOP HP ---
DATE OF SERVICE: 08/19/2021 HISTORY OF PRESENT ILLNESS: The patient is here today with complaints of significant left knee pain with prior history of previous surgery to the left knee arthroscopically. He has had an evaluation last by Dr. Corral who performed the debridement and partial meniscectomy on 11/15/2019, and subsequent to that surgery, he has continued to have severe and significant pain at night as well as with activities of daily living. He has tried multiple injections in the knee. He has had also issues with his left hip in the past, but while that is ongoing as far as pain in his knee is what is causing him the significant amount of discomfort at this point. Past medical and surgical history was reviewed. REVIEW OF SYSTEMS: Unremarkable other than his current musculoskeletal complaints. MEDICAL HISTORY: Hypothyroidism, hypogonadism, vitamin B12 deficiency. SURGICAL HISTORY: Left hip surgery, lumbar surgery, knee arthroscopy, left. FAMILY HISTORY: Unknown. SOCIAL HISTORY: The patient does use tobacco. Minimal alcohol use at this point. MEDICATIONS: Vitamin B12, levothyroxine, testosterone, Drisdol. MEDICATION ALLERGIES: No known drug allergies. PHYSICAL EXAMINATION: He is 71 inches tall, 230 pounds. His exam reveals there to be some mild laxity to the lateral compartment testing with medial testing, but overall grossly stable in the medial, lateral and AP planes. Range of motion 0-115, almost to 120. Pain medially throughout the arc of motion with palpation, pain with palpation with a positive Apley's test on that medial side that is also positive laterally. There is a lot of apprehension of the patellofemoral joint throughout the arc of motion as well, but there is no significant atrophy of musculature and the distal neurovascular status is fully intact at this point. IMPRESSION: Degenerative joint disease, left knee, chronic. PLAN: At this time, he has failed physical therapy, arthroscopic surgery, multiple injections, etc. Nothing is helping his symptoms at this point. Therefore, after a long discussion with him today, we have gone over the risks, complications as well as benefits and expectations of that surgery. We will proceed as soon as possible and after he sees Anesthesia. TY/KHLOE/QUIQUE DR: Tolu TID: [id number]
[2021-08-19] MEDS ORDERED: ASPI325T11 PO (12:48)
[2021-08-19] MEDS: ONDANSETRON PF 4 MG/2 ML VIAL. IVP SCH ×2 (14:06→17:26)
--- NOTE | 2021-08-19 14:50 | PDOC1 ---
History and Physical Date of Admission Date of Admission DATE: 08/19/21 TIME: 14:49 Identification/Chief Complaint Chief Complaint Left knee pain Source Source: Patient History of Present Illness History of Present Illness Mr Miller is a 66yo male with PMhx vitamin B12 deficiency, hypothyroidism, and hypogonadism who comes in 08/19/21 for significant left knee pain for elective total knee arthoplasty. Has failed conservative measures for chronic left knee pain including multiple injections and arthroscopy by Dr. Corral with debridement and partial meniscectomy on 11/15/2019. He has had a left total hip and revision as well as lumbar surgery and sees outpatient pain management for this chronic left knee pain and now is interfering with his activities of daily living difficulty bearing weight and staying active. Tolerated left total knee arthroplasty well and was seen postoperatively. Pain is reasonably controlled. No shortness of breath or chest pain. Past Medical History Endocrine: Hypothyroidism Past Surgical History Past Surgical History Lumbar surgery with Dr. Holt on 05/26/2019. The left knee scope on 11/15/2019. Reviesion of left femoral stem of left total hip arthroplasty 07/17/2020 Past Surgical History: Arthroscopy (Left knee), Total hip replacement (Left), Total knee replacement (Left 08/19/21) Family History Family History Significant for mother and father both without any significant family history conditions. Family History: No Significant Social History Smoke: <1 pack per day ALCOHOL: occassional Drugs: None Current Medications Current Medications Current Medications Fentanyl Citrate (Fentanyl 2ml Vial) 25 mcg PRN Q5MIN PRN IVP MILD PAIN 1-3; Start 08/19/21 at 06:00; Stop 08/20/21 at 05:59 Fentanyl Citrate (Fentanyl 2ml Vial) 50 mcg PRN Q5MIN PRN IVP MODERATE PAIN 4- 6; Start 08/19/21 at 06:00; Stop 08/20/21 at 05:59 Morphine Sulfate (Morphine Sulfate) 1 mg PRN Q10MIN PRN IVP SEVERE PAIN 7-10 Last administered on 08/19/21at 11:32; Start 08/19/21 at 06:00; Stop 08/20/21 at 05:59 Ringer's Solution 1,000 ml @ 30 mls/hr Q24H IV Last administered on 08/19/21at 08:02; Start 08/19/21 at 06:00; Stop 08/19/21 at 17:59 Hydromorphone HCl (Dilaudid) 0.5 mg PRN Q10MIN PRN IVP SEVERE PAIN 7-10, 2nd CHOICE Last administered on 08/19/21at 12:53; Start 08/19/21 at 06:00; Stop 08/20/21 at 05:59 Prochlorperazine Edisylate (Compazine) 5 mg PACU PRN PRN IVP NAUSEA, MRX1 Last administered on 08/19/21at 12:03; Start 08/19/21 at 06:00; Stop 08/20/21 at 05:59 Meloxicam (Mobic) 15 mg 1X PREOP PRN PO PRIOR TO PROCEDURE Last administered on 08/19/21at 08:01; Start 08/19/21 at 06:00; Stop 08/19/21 at 18:00 Acetaminophen (Tylenol) 1,000 mg 1X PREOP PRN PO PRIOR TO PROCEDURE Last administered on 08/19/21at 08:02; Start 08/19/21 at 06:00; Stop 08/19/21 at 18:00 Cefazolin Sodium/ Dextrose 50 ml @ 100 mls/hr 1X PREOP PRN IV PRIOR TO PROCEDURE; Start 08/19/21 at 06:00; Stop 08/19/21 at 18:00 Tranexamic Acid 50 ml @ 50 mls/hr 1X PERIOP ONCE INJ ; Start 08/19/21 at 06:00; Stop 08/19/21 at 06:59; Status DC Tranexamic Acid 50 ml @ 50 mls/hr 1X PERIOP ONCE INJ ; Start 08/19/21 at 08:00; Stop 08/19/21 at 08:59; Status DC Morphine Sulfate 5 mg/Ketorolac Tromethamine 30 mg/Ropivacaine 60 ml/Epinephrine HCl 0.5 mg/ Miscellaneous 63 ml @ 63 mls/hr 1X PERIOP ONCE INT ART ; Start 08/19/21 at 06:00; Stop 08/19/21 at 06:59; Status DC Scopolamine (Transderm-Scop) 1 patch Q3DAYS TD Last administered on 08/19/21at 08:09; Start 08/19/21 at 09:00 Tranexamic Acid 100 ml @ As Directed STK-MED ONCE .ROUTE ; Start 08/19/21 at 08:03; Stop 08/19/21 at 08:04; Status DC Vancomycin HCl (Vancomycin) 1 gm STK-MED ONCE .ROUTE ; Start 08/19/21 at 08:04; Stop 08/19/21 at 08:04; Status DC Propofol (Diprivan) 200 mg STK-MED ONCE IV ; Start 08/19/21 at 08:28; Stop 08/19/21 at 08:28; Status DC Sevoflurane (Ultane) 60 ml STK-MED ONCE IH ; Start 08/19/21 at 08:28; Stop 08/19/21 at 08:28; Status DC Fentanyl Citrate (Fentanyl 2ml Vial) 100 mcg STK-MED ONCE .ROUTE ; Start 08/19/21 at 08:28; Stop 08/19/21 at 08:28; Status DC Dexamethasone Sodium Phosphate (Decadron) 4 mg STK-MED ONCE .ROUTE ; Start 08/19/21 at 09:17; Stop 08/19/21 at 09:17; Status DC Ondansetron HCl (Zofran) 4 mg STK-MED ONCE .ROUTE ; Start 08/19/21 at 09:17; Stop 08/19/21 at 09:17; Status DC Morphine Sulfate (Morphine Sulfate) 2 mg PRN Q1HR PRN IVP PAIN-SEE COMMENTS; Start 08/19/21 at 09:30 Fentanyl Citrate (Fentanyl 2ml Vial) 25 mcg PRN Q1HR PRN IVP PAIN, 2nd CHOICE; Start 08/19/21 at 09:30 Diphenhydramine HCl (Benadryl) 25 mg PRN Q6HRS PRN IVP ITCHING; Start 08/19/21 at 09:30 Multivitamins (Thera M Plus) 1 tab DAILY PO ; Start 08/19/21 at 11:00 Senna/Docusate Sodium (Senna Plus) 1 tab DAILY PO ; Start 08/19/21 at 11:00 Ferrous Sulfate (Feosol) 325 mg BIDWMEALS PO ; Start 08/19/21 at 17:00 Sodium Chloride 1,000 ml @ 40 mls/hr Q24H IV Last administered on 08/19/21at 12:04; Start 08/19/21 at 09:30 Prochlorperazine Maleate (Compazine) 10 mg PRN Q4HRS PRN PO Nausea/vomiting, 2nd choice; Start 08/19/21 at 09:30 Metoclopramide HCl (Reglan Vial) 10 mg PRN Q4HRS PRN IVP NAUSEA/VOMITING, 3rd CHOICE; Start 08/19/21 at 09:30 Magnesium Hydroxide (Milk Of Magnesia) 2,400 mg 1X PRN PRN PO CONSTIPATION; Start 08/20/21 at 06:00; Stop 08/21/21 at 05:59 Bisacodyl (Dulcolax Supp) 10 mg 1X PRN PRN [place] CONSTIPATION; Start 08/20/21 at 16:00; Stop 08/21/21 at 15:59 Zolpidem Tartrate (Ambien) 5 mg PRN QHS PRN PO INSOMNIA, MAY REPEAT IN 1HR; Start 08/19/21 at 09:30 Calcium Carbonate/ Glycine (Tums) 500 mg PRN QID PRN PO INDIGESTION; Start 08/19/21 at 09:30 Ketorolac Tromethamine 30 mg/Bupivacaine HCl 20 ml/ Epinephrine HCl 0.5 mg/ Miscellaneous 43 ml @ 258 mls/hr Q12H INT ART ; Start 08/19/21 at 18:00; Stop 08/20/21 at 06:09; Status UNV Sodium Chloride (Normal Saline Flush) 10 ml QSHIFT PRN IV AFTER MEDS AND BLOOD DRAWS; Start 08/19/21 at 09:30 Acetaminophen (Tylenol) 1,000 mg Q6H PO ; Start 08/20/21 at 09:00 Meloxicam (Mobic) 15 mg DAILY PO ; Start 08/20/21 at 09:00 Ondansetron HCl (Zofran) 4 mg Q6HRS IVP Last administered on 08/19/21at 14:06; Start 08/19/21 at 12:00; Stop 08/20/21 at 06:01 Ondansetron HCl (Zofran Odt) 4 mg Q6HRS PO ; Start 08/19/21 at 12:00; Stop 08/20/21 at 06:01 Ondansetron HCl (Zofran) 4 mg PRN Q6HRS PRN IVP Nausea/vomiting, 1st choice; Start 08/20/21 at 12:00 Ondansetron HCl (Zofran Odt) 4 mg PRN Q6HRS PRN PO Nausea/vomiting, 1st choice; Start 08/20/21 at 12:00 Oxycodone HCl (Roxicodone) 5 mg PRN Q4HRS PRN PO Pain score 4-6; Start 08/19/21 at 09:30 Dextrose (Dextrose 50%-Water Syringe) 12.5 gm PRN Q15MIN PRN IV SEE COMMENTS; Start 08/19/21 at 09:30 Dextrose (Iv Dextrose 5%) 250 ml PRN Q15MIN PRN IV SEE COMMENTS; Start 08/19/21 at 09:30 Cefazolin Sodium/ Dextrose 50 ml @ 100 mls/hr Q6H IV Last administered on 08/19/21at 14:06; Start 08/19/21 at 15:00; Stop 08/20/21 at 03:29 Aspirin (Magaly Aspirin) 325 mg DAILYWBKFT PO ; Start 08/20/21 at 08:00; Stop 08/19/21 at 12:51; Status DC Prochlorperazine Edisylate (Compazine) 10 mg STK-MED ONCE .ROUTE ; Start 08/19/21 at 11:16; Stop 08/19/21 at 11:16; Status DC Hydromorphone HCl (Dilaudid) 2 mg STK-MED ONCE .ROUTE ; Start 08/19/21 at 11:56; Stop 08/19/21 at 11:57; Status DC Aspirin (Ecotrin) 325 mg BID PO ; Start 08/19/21 at 21:00 Active Scripts Active Reported Aspirin Ec (Aspirin) 325 Mg Tablet.dr 1 Tab PO BID 30 Days Hydroxychloroquine Sulfate 200 Mg Tablet 1 Tab PO BID Iron (Ferrous Sulfate) 325 Mg Tablet 1 Tab PO BID 30 Days Testosterone Cypionate 200 Mg/1 Ml Vial 200 Mg IM MONTHLY Levothyroxine Sodium 175 Mcg Tablet 1 Tab PO DAILY [B12 IM monthly] IM Allergies Allergies: Coded Allergies: gabapentin (Verified Allergy, Intermediate, 08/19/21) causes rash ROS General: No: Chills, Night Sweats, Fatigue, Malaise, Appetite, Other PSYCHOLOGICAL ROS: No: Anxiety, Behavioral Disorder, Concentration difficultie, Decreased libido, Depression, Disorientation, Hallucinations, Hostility, Irritablity, Memory difficulties, Mood Swings, Obsessive thoughts, Physical abuse, Sexual abuse, Sleep disturbances, Suicidal ideation, Other Eyes: No Blurry vision, No Decreased vision, No Double vision, No Dry eyes, No Excessive tearing, No Eye Pain, No Itchy Eyes, No Loss of vision, No Photophobia, No Scotomata, No Uses contacts, No Uses glasses, No Other HEENT: No: Heacaches, Visual Changes, Hearing change, Nasal congestion, Nasal discharge, Oral lesions, Sinus pain, Sore Throat, Epistaxis, Sneezing, Snoring, Tinnitus, Vertigo, Vocal changes, Other ALLERGY AND IMMUNOLOGY: No: Hives, Insect Bite Sensitivity, Itchy/Watery Eyes, Nasal Congestion, Post Nasal Drip, Seasonal Allergies, Other Hematological and Lymphatic: No: Bleeding Problems, Blood Clots, Blood Transfusions, Brusing, Night Sweats, Pallor, Swollen Lymph Nodes, Other ENDOCRINE: No: Breast Changes, Galactorrhea, Hair Pattern Changes, Hot Flashes, Malaise/lethargy, Mood Swings, Palpitations, Polydipsia/polyuria, Skin Changes, Temperature Intolerance, Unexpected Weight Changes, Other Breast: No New/Changing Breast Lumps, No Nipple changes, No Nipple discharge, No Other Respiratory: No: Cough, Hemoptysis, Orthopnea, Pleuritic Pain, Shortness of breath, SOB with excertion, Sputum Changes, Stridor, Tachypnea, Wheezing, Other Cardiovascular: No Chest Pain, No Palpitations, No Orthopnea, No Paroxysmal Noc. Dyspnea, No Edema, No Lt Headedness, No Other Gastrointestinal: No Nausea, No Vomiting, No Abdominal Pain, No Diarrhea, No Constipation, No Melena, No Hematochezia, No Other Genitourinary: No Dysuria, No Frequency, No Incontinence, No Hematuria, No Retention, No Discharge, No Urgency, No Pain, No Flank Pain, No Other, No , No , No , No , No , No , No Musculoskeletal: Yes Gait Disturbance, Yes Joint Pain, Yes Joint Stiffness; No Joint Swelling, No Muscle Pain, No Muscular Weakness, No Pain In:, No Swelling In:, No Other Neurological: No Behavorial Changes, No Bowel/Bladder ControlChng, No Confusion, No Dizziness, No Gait Disturbance, No Headaches, No Impaired Coord/balance, No Memory Loss, No Numbness/Tingling, No Seizures, No Speech Problems, No Tremors, No Visual Changes, No Weakness, No Other Skin: No Dry Skin, No Eczema, No Hair Changes, No Lumps, No Mole Changes, No Mottling, No Nail Changes, No Pruritus, No Rash, No Skin Lesion Changes, No Other, No Acne Physical Exam General: Alert, Oriented X3, Cooperative, mild distress HEENT: Atraumatic, PERRLA, EOMI, Mucous membr. moist/pink Lungs: Clear to auscultation, Normal air movement Heart: S1S2, RRR, no thrills, no rubs, no gallops, no murmurs Abdomen: Normal bowel sounds, Soft, No tenderness, No hepatosplenomegaly, No masses Extremities: No clubbing, No cyanosis, No edema, Normal pulses, Other (left knee wrapped, normal pulse) Skin: No rashes, No breakdown, No significant lesion Neuro: Normal gait, Normal speech, Strength at 5/5 X4 ext, Normal tone, Sensation intact, Cranial nerves 3-12 NL, Reflexes 2+ Psych/Mental Status: Mental status NL, Mood NL Vitals Vitals Vital Signs Date Time Temp Pulse Resp B/P (MAP) Pulse Ox O2 Delivery O2 Flow Rate FiO2 08/19/21 14:00 97.4 66 20 117/68 (84) 97 Nasal Cannula 2.0 97.4 VTE Prophylaxis Ordered VTE Prophylaxis Devices: Yes VTE Pharmacological Prophylaxi: No Assessment/Plan Assessment/Plan Left knee pain with OA - s/p left TKA 08/19/21. Post op ASA, pain control, PT for rehab modalities Hypothyroidism - on levothyroxine, will continue Male hypogonadism - on testosterone injections Obesity - counseled on lifestyle modifications FEN - Regular diet PPX - ASA FULL CODE Dispo - inpatient for left knee replacement, PT assess for rehab needs Justifications for Admission Other Justification MELODY FERNANDES MD Aug 19, 2021 14:49
[2021-08-19] MEDS: FERROUS SULFATE 325 MG TABLET. PO SCH (17:26)
[2021-08-19] MEDS ORDERED: KETOROLAC 30MG VIAL 30 MG, BUPIVACAINE MPF 0.25% 20 ML, EPINEPHrine 0.5 MG in TOTAL VOL... INT ART SCH (18:00)
[2021-08-19] MEDS: ASPIRIN ENTERIC COATED 325 MG TABLET.DR. PO SCH (21:44)
[2021-08-20 03:11] VITALS: BP 125/63
[2021-08-20] MEDS: oxyCODONE IR 5 MG TABLET PO PRN ×4 (05:05→21:42)
[2021-08-20] MEDS: ONDANSETRON ODT 4 MG TAB.RAPDIS. PO SCH ×2 (05:05)
[2021-08-20] MEDS: ONDANSETRON PF 4 MG/2 ML VIAL. IVP SCH ×2 (05:06)
[2021-08-20] MEDS ORDERED: MAGNESIUM HYDROXIDE 2,400 MG/30 ML ORAL.SUSP. PO PRN (06:00)
[2021-08-20] MEDS ORDERED: ASPIRIN 325 MG TABLET PO SCH (08:00)
[2021-08-20] MEDS ORDERED: FERROUS SULFATE 325 MG TABLET. PO SCH (09:00)
[2021-08-20] MEDS: MULTIVITAMIN with MINERAL TABLET. PO SCH (09:12)
[2021-08-20] MEDS: MELOXICAM 7.5 MG TABLET PO SCH (09:12)
[2021-08-20] MEDS: ACETAMINOPHEN 500 MG TABLET PO SCH ×2 (09:12→18:13)
[2021-08-20] MEDS: ASPIRIN ENTERIC COATED 325 MG TABLET.DR. PO SCH ×2 (09:12→21:42)
[2021-08-20] MEDS: FERROUS SULFATE 325 MG TABLET. PO SCH ×2 (09:12→18:11)
[2021-08-20] MEDS: SENNOSIDES/DOCUSATE 8.6/50MG TABLET. PO SCH (09:13)
[2021-08-20] MEDS: IV NORMAL SALINE 1000ML BAG 1,000 ML IV SCH (09:30)
[2021-08-20] MEDS: LEVOTHYROXINE 175 MCG TABLET PO SCH (10:46)
[2021-08-20 11:07] VITALS: BP 121/52
[2021-08-20] MEDS ORDERED: ONDANSETRON PF 4 MG/2 ML VIAL. IVP PRN (12:00)
[2021-08-20] MEDS ORDERED: ONDANSETRON ODT 4 MG TAB.RAPDIS. PO PRN (12:00)
[2021-08-20] MEDS ORDERED: HYDR-2769 PO (13:46)
[2021-08-20] MEDS ORDERED: SENN1TAB99 PO (13:47)
--- NOTE | 2021-08-20 13:50 | SNU/HH DC ---
DISCHARGE WITH HOME HEALTH DISCHARGE INFORMATION: Discharge Date: Aug 20, 2021 Condition on Discharge: Stable CODE STATUS: Code Status: Full HOME HEALTH: Face to Face: I certify this patient is under my care and that I, or a nurse practitioner or physician's facility assistant working with me, had a face to face encounter that meets the physician face to face encounter requirements with this patient on []. Medical Complications: S/P Joint Replacement Custodial For: Assess Cardiopulm Status, Assess & Educate Safety, Medication Management, Pain Management RN For Eval/Treatment: Yes Physical Therapy For: Evalulation/Treatment Occupational Therapy For: Evaluation/Treatment Pt Meets Homebound Status: Poor coordination w/ amb., Extreme weakness w/ amb., Limited distance walking POST DISCHARGE ORDERS: Activity Instructions for Disc: Other, see below Weight Bearing Status after Di: As tolerated Bathing Instructions: Shower-keep dressing dry, No Tub Bath until see DIET AFTER DISCHARGE: Regular Wound/Incision Care: Ice to area for comfort, Do not change dressing FOLLOW-UP: Follow up with: Orthopedic surgery as scheduled or as needed Follow Up With: PCP within 2 weeks of discharge TREATMENT/EQUIPMENT ORDERS: Adaptive Equipment Issued: None CERTIFICATION STATEMENT: Certification Statement: Certification Statement: Based on the above finding, I certify that this patient is confined to the home and needs intermittent correction care, physical therapy and/or speech therapy, or continues to need occupational therapy.~ This patient is under my care, and I have initiated the establishment of the plan of care.~ This patient will be followed by myself or a community physician who will periodically review the plan of care. Home Meds Active Scripts Sennosides/Docusate Sodium (Senna-Docusate Sodium Tablet) 1 Each Tablet, 1 TAB PO DAILY PRN for CONSTIPATION for 20 Days, #20 TAB 0 Refills Prov:ERIC KHAN MD 08/20/21 Hydrocodone Bit/Acetaminophen (HYDROCODONE-APAP 10-325 ) 1 Tab Tablet, 1 TAB PO PRN Q6HRS PRN for PAIN for 3 Days, #12 TAB 0 Refills Prov:ERIC KHAN MD 08/20/21 Reported Medications Aspirin (ASPIRIN EC) 325 Mg Tablet., 1 TAB PO BID for blood thinner for 30 Days, #60 TAB 0 Refills 08/19/21 Hydroxychloroquine Sulfate (HYDROXYCHLOROQUINE SULFATE) 200 Mg Tablet, 1 TAB PO BID for RA, #180 TAB 1 Refill 08/13/21 Ferrous Sulfate (IRON) 325 Mg Tablet, 1 TAB PO BID for for 30 Days, #60 TAB 0 Refills 08/13/21 Testosterone Cypionate (TESTOSTERONE CYPIONATE) 200 Mg/1 Ml Vial, 200 MG IM monthly for replacement, EACH 03/16/19 Levothyroxine Sodium (LEVOTHYROXINE SODIUM) 175 Mcg Tablet, 1 TAB PO DAILY for hypothyroidism, #30 TAB 5 Refills 03/16/19 [B12 IM monthly] No Conflict Check, IM 03/16/19 ERIC KHAN MD Aug 20, 2021 13:50
--- NOTE | 2021-08-20 14:28 | NUR ---
and daughter at bedside. worried about him having periods of confusion. attempts to get up with walker and thinks he needs to have surgery. will answer questions appropriately then attempt to get up. Sopalamine patch removed as this is the only new medication. will continue to monitor. bed/ and chair alarm applied Addendum: 08/20/21 at 1431 by RONEL LAWSON RN he barker had oxycodone prior and has not reacted this way.
[2021-08-20] MEDS ORDERED: BISACODYL 10 MG SUPP.RECT. PR PRN (16:00)
[2021-08-20 18:46] VITALS: BP 108/70
[2021-08-20 23:07] VITALS: BP 114/58
[2021-08-21 02:40] VITALS: BP 122/54
[2021-08-21] MEDS: ACETAMINOPHEN 500 MG TABLET PO SCH ×2 (06:03→09:00)
[2021-08-21] MEDS: oxyCODONE IR 5 MG TABLET PO PRN ×3 (06:03→13:51)
[2021-08-21] MEDS: LEVOTHYROXINE 175 MCG TABLET PO SCH (06:06)
[2021-08-21 06:13] VITALS: BP 134/82
[2021-08-21 08:22] LABS: HEMATOCRIT 37.8 % (39.0-53.0); HEMOGLOBIN 12.5 g/dL (13.0-17.5)
[2021-08-21] MEDS: MELOXICAM 7.5 MG TABLET PO SCH (08:37)
[2021-08-21] MEDS: FERROUS SULFATE 325 MG TABLET. PO SCH (08:38)
[2021-08-21] MEDS: ASPIRIN ENTERIC COATED 325 MG TABLET.DR. PO SCH (08:38)
[2021-08-21] MEDS: MULTIVITAMIN with MINERAL TABLET. PO SCH (08:39)
--- NOTE | 2021-08-21 09:00 | NUR ---
0900 dose of Tylenol not given because night nurse gave it at 0600 this am.
[2021-08-21] MEDS: IV NORMAL SALINE 1000ML BAG 1,000 ML IV SCH (09:30)
[2021-08-21] MEDS ORDERED: diphenhydrAMINE HCL 25 MG CAPSULE PO PRN (09:45)
--- NOTE | 2021-08-21 12:57 | PDOC3 ---
Discharge Summary Visit Information Date of Admission: Aug 19, 2021 Date of Discharge: Aug 21, 2021 Admitting Diagnosis: Left knee OA Final Diagnosis Left knee OA Brief Hospital Course Allergies Allergies Coded Allergies Type Severity Reaction Last Updated Verified gabapentin Allergy Intermediate 08/19/21 Yes Vital Signs Vital Signs Date Time Temp Pulse Resp B/P (MAP) Pulse Ox O2 Delivery O2 Flow Rate FiO2 08/21/21 10:12 Room Air 08/21/21 06:35 20 08/21/21 06:13 97.3 56 134/82 (99) 96 97.3 Lab Results Laboratory Tests Test 08/21/21 08:00 Hemoglobin 12.5 g/dL (13.0-17.5) Hematocrit 37.8 % (39.0-53.0) Mean Corpuscular Hemoglobin Concent 33 g/dL (31-37) Laboratory Tests Test 08/21/21 08:00 Hemoglobin 12.5 g/dL (13.0-17.5) Hematocrit 37.8 % (39.0-53.0) Mean Corpuscular Hemoglobin Concent 33 g/dL (31-37) Brief Hospital Course Mr Miller is a 66yo male with PMhx vitamin B12 deficiency, hypothyroidism, and hypogonadism who comes in 08/19/21 for significant left knee pain for elective total knee arthoplasty. Has failed conservative measures for chronic left knee pain including multiple injections and arthroscopy by Dr. Corral with debridement and partial meniscectomy on 11/15/2019. He has had a left total hip and revision as well as lumbar surgery and sees outpatient pain management for this chronic left knee pain and now is interfering with his activities of daily living difficulty bearing weight and staying active. Tolerated left total knee arthroplasty well and was seen postoperatively. Pain is reasonably controlled. No shortness of breath or chest pain. 08/21: Seen postop day 2 status post left total knee arthroplasty pain is well controlled. Passing flatus no BM no shortness of breath or chest pain no num bness or tingling good range of motion and foot. Plan for outpatient physical therapy and orthopedic f/u within the next 2 weeks and aspirin for thromboprophylaxis HEENT: Head normocephalic, atraumatic. NECK: Supple LUNGS: Clear to auscultation. HEART: RRR, S1, S2 present, pulses intact ABDOMEN: Soft, positive bowel sounds. EXTREMITIES: No cyanosis or edema. (left knee wrapped, normal pulse) NEUROLOGIC: Normal speech, normal tone PSYCHIATRIC: Normal affect, normal mood. SKIN: No ulceration. Problem list: Left knee pain with OA - s/p left TKA 08/19/21. Post op ASA, pain control, PT for rehab modalities Hypothyroidism - on levothyroxine, will continue Male hypogonadism - on testosterone injections Obesity - counseled on lifestyle modifications Greater than 30 minutes spent on d/c Discharge Information Condition at Discharge: Improved Follow Up: Weeks (1) Disposition/Orders: D/C to Home Scheduled Aspirin (Aspirin Ec) 325 Mg Tablet.dr, 1 TAB PO BID for blood thinner for 30 Days, #60 Ref 0 (Reported) Entered as Reported by: RONEL LAWSON on 08/19/211247 Last Action: Continued on 08/19/211247 by RONEL LAWSON Ferrous Sulfate (Iron) 325 Mg Tablet, 1 TAB PO BID for for 30 Days, #60 Ref 0 (Reported) Entered as Reported by: Connie Wheat on 08/13/21 1027 Last Taken: Unknown Dose on 08/18/21 Last Action: Continued on 08/20/21717 by MELODY FERNANDES MD Hydroxychloroquine Sulfate (Hydroxychloroquine Sulfate) 200 Mg Tablet, 1 TAB PO BID for RA, #180 Ref 1 (Reported) Entered as Reported by: Connie Wheat on 08/13/21 1035 Last Taken: Unknown Dose on 08/18/21 Last Action: Last Taken Edited on 08/19/21 07 by Aime Ferguson Levothyroxine Sodium (Levothyroxine Sodium) 175 Mcg Tablet, 1 TAB PO DAILY for hypothyroidism, #30 Ref 5 (Reported) Entered as Reported by: LIZ CERON on 03/16/19 1033 Last Taken: Unknown Dose on 08/18/21 Last Action: Continued on 08/20/21717 by MELODY FERNANDES MD Testosterone Cypionate (Testosterone Cypionate) 200 Mg/1 Ml Vial, 200 MG IM monthly for replacement, (Reported) Entered as Reported by: LIZ CERON on 03/16/19 1033 Scheduled PRN Hydrocodone Bit/Acetaminophen (Hydrocodone-Apap 10-325 ) 1 Tab Tablet, 1 TAB PO PRN Q6HRS PRN for PAIN for 3 Days, #12 Ref 0 Prescribed by: ERIC KHAN MD on 08/20/21 1347 Sennosides/Docusate Sodium (Senna-Docusate Sodium Tablet) 1 Each Tablet, 1 TAB PO DAILY PRN for CONSTIPATION for 20 Days, #20 Ref 0 Prescribed by: ERIC KHAN MD on 08/20/21 1347 Miscellaneous Medications [B12 IM monthly] , IM, (Reported) Entered as Reported by: LIZ CERON on 03/16/19 1033 Justicifation of Admission Dx: Justifications for Admission: Justification of Admission Dx: N/A MELODY FERNANDES MD Aug 21, 2021 12:57
--- NOTE | 2021-08-21 15:25 | NUR ---
Discharge instructions given. Answered questions and concerns. Both patient and daughter verbalized understanding. Pt discharged home and will do Outpatient therapy starting tomorrow. Escorted out by w/c.
--- NOTE | 2021-08-21 19:20 | PN ---
DATE: 08/21/2021 He is seen postoperative day #1 for his left total knee arthroplasty. He is having some issues with some of the medication. Otherwise, he is doing extremely well. The incisions are doing well. No signs or symptoms of infection. No significant drainage at this point. He has no signs or symptoms of DVT. He is doing well with physical therapy. We will see how he does on postoperative day #2, and if he is doing well, he will be dismissed home with home physical therapy at this point at home health, he understands that. We have gone over all that. He will continue with DVT prophylaxis. He has completed antibiotics. AARON DR: Tolu TID: [id number]
--- NOTE | 2021-08-22 19:07 | PATHOLOGY ---
[facility] Accession Number: [id number] . 01 Material submitted: . knee - LEFT KNEE BONE AND TISSUE. Modifiers: left . 01 Clinical history: . L TOTAL KNEE ARTHROPLASTY . 02 Diagnosis: Bone and soft tissue "left knee" (total arthroplasty): - Severe osteoarthritis, with focal complete erosion of articular cartilage. - Negative for malignancy. (MLK:geovanny; 08/21/2021) QMS 08/22/2021 1852 Local . 02 Electronically signed: . Jareth Contreras MD, Pathologist NPI- [id number] . 01 Gross description: . The specimen is received in formalin, labeled "Renato Miller, Mari knee bone and tissue". Received are multiple segments of bone, including the tibial plateau, measuring 12.5 x 12.0 x 1.0 cm admixed with soft tissue in aggregate dimensions. Meniscus is present. The articular surfaces are pale huntley to dark huntley and focally hemorrhagic, smooth to roughened, and with focal areas of granularity as well as no evidence of eburnation. The specimen is submitted representatively in cassette A1 to A2, following decalcification.([facility]; 08/19/2021) [facility] 08/19/2021 1732 Local . 02 Pathologist provided ICD-10: M17.12 . 02 CPT . 416903, 213179 Specimen Comment: A courtesy copy of this report has been sent to [phone], [phone] Specimen Comment: [phone] Specimen Comment: Report sent to / DR NARANJO Performed at: [address], [place], [place] [id number] MD Alexx Bloom MD Phone: [phone] Performed at: 02 [facility] [address] [place], [place] [id number] MD Dav Ramsey MD Phone: [phone]
== END 2021-08-21 15:25 | disposition home health service (06) | DRG 470 ==
LOC: SURG 07:22 → 4 SOUTHEST 12:03
PROVIDERS: ADMIT Internal Medicine; ATTEND Orthopaedic Surgery
PROC: 0SRD0JA Replacement of Left Knee Joint with Synthetic Substitute, Uncemented, Open Approach (ICD-10-PCS; principal; 2021-08-19 09:30)
DX: M17.12 Unilateral primary osteoarthritis, left knee (principal); F17.210 Nicotine dependence, cigarettes, uncomplicated; E66.9 Obesity, unspecified; E29.1 Testicular hypofunction; E03.9 Hypothyroidism, unspecified; G89.29 Other chronic pain; Z68.30 Body mass index [BMI] 30.0-30.9, adult
CPT/HCPCS: 36415; 73560; 85014; 85018; 86850; 86900; 86901; 99406; A4213; A4930; A6253; A6258; A6450; A6454; A6550; C1776; J0171; J0690; J0780; J1100; J1170; J1885; J2270; J2405; J2704; J2795; J3010; J3370; 97116-GP; 97150-GP; 97530-GO; 97530-GP; 97535-GO; G0378; Q0163

== ENCOUNTER → 2021-10-15 | Outpatient (CLI) | payer OTHER ==
[~2021-10-15] MED LIST changes: -ACETAMINOPHEN 500 MG TABLET PO PRN; +ASPI325T11 PO; +BUPIVACAINE MPF 0.25% 10 ML VIAL. ONE; +HYDR-2769 PO; +IOHEXOL 180 MG/ML 10 ML VIAL. ONE; -IV RINGERS,LACTATED 1000ML 1,000 ML IV SCH; -MELOXICAM 7.5 MG TABLET PO PRN; +SENN1TAB99 PO; -TRANEXAMIC ACID 1,000 MG in IV NS 50ML -- 1ST BAG INJ ONE; -TV=62ml MORPHINE 5 MG, KETOROLAC 30 MG, ROPIV, EPI INT ART ONE; -fentaNYL PF VIAL 100 MCG/2 ML VIAL IVP PRN
--- NOTE | 2021-10-15 12:09 | PDOC ---
Progress Note - Pain Clinic Date of Service: DOS: DATE: 10/15/21 TIME: 12:05 Diagnosis: Dx: Lumbar radiculopathy with lumbar degenerative disease and lumbar postlaminectomy syndrome Left hip joint pain with osteoarthritis Left knee joint pain status post total knee arthroplasty Left lower extremity complex regional pain syndrome post left total knee arthroplasty History or Present Illness: HPI: 66-year-old male returns last seen December 2020 patient had lumbar epidural steroid injections well as left intra-articular knee injection and has since had a total knee replacement in July of this year on the left side patient reports while he has been recovering well and doing physical therapy he is having significant pain in the lower extremity from the knee down with significant hypersensitivity to the anterior and lateral calf with numbness and tingling in the foot which is feels like it is on fire. Patient reports getting worse and is most sensitive to light touch specially when currents and light clothing or sheets touching his leg when he is sleeping patient reports that he only slept an hour and a half last night because of the pain describes pain as aching sharp tight shooting burning tingling radiating can be severe and constant and tingling and burning in the foot as well on the top of the foot on the left side patient reports is a 5 on scale 10 is worse over the past week 3 on average 3 at its least is a 5 today patient reports her skin is supersensitive on the left side since the surgery. Patient reports he did have some tingling in the feet before the surgery but always attribute that to his low back and post laminectomy syndrome but now is much different and very sensitive in the anterior aspect of the calf on the left side. Patient reports as well hard to walk is waking from sleep. Physical Exam: VS: Blood pressure is 120/81 pulse 57 respirations 18 temperature is 98.2 F weight is 195 pounds. PE: PHYSICAL EXAMINATION: GENERAL: The patient is awake, alert, oriented, appropriate, very pleasant in demeanor, patient companied by his spouse. HEENT: Shows normocephalic, atraumatic. Extraocular movements are intact and symmetrical. Oral cavity: Mucous membranes moist and pink. Dentition is intact. NECK: Shows anterior throat supple without palpable lymphadenopathy noted. Swallow reflex symmetrical. CHEST: Shows normal on inspection. Breath sounds are clear bilaterally, no rales rhonchi wheezes auscultated. HEART: Shows S1, S2 clear. No murmurs auscultated. ABDOMEN: Soft, nontender, nondistended. No palpable organomegaly is noted. No rebound or guarding demonstrated. BACK: Shows spine grossly in the midline. Normal-appearing cervical lordotic curvature. There is slightly increased thoracic kyphosis, some minor flattening of the lumbar lordotic curvature with well-healed surgical scar noted. Lumbar paraspinous muscles show symmetrical on inspection, on palpation shows some moderate tenderness diffusely throughout the upper, middle and lower distribution of the paraspinous muscles, but without specific trigger points, without radiation of pain. The patient has good rotational motion of the lumbar spine, both laterally as well as extension and flexion without significant difficulty. No tenderness over the spinous processes, sacrum or sacroiliac regions. EXTREMITIES: Lower extremities show deep tendon reflexes 1+ in the patellar and tendo calcaneus tendons. Motor exam is 4 on a scale of 5 with right dorsiflexion, extension, quadriceps and hamstring flexion and 4/5 on the left. Peripheral pulses are 1+ posterior tibial. 1+ peripheral edema is noted bilaterally. Lower extremities are warm and dry to touch. Left lower extremity shows well-healed surgical scar over the anterior knee status post total knee arthroplasty, lower leg shows significant allodynia and hypersensitivity to light touch on the anterior aspect and slightly lateral aspect of the lower leg also with a slightly increased edema to 1-1 to 2+ compared to the right side. Patient shows good range of motion with extension and flexion but his knee shows significant pain and limitation with flexion past approximately 100 110 degrees. No discoloration is noted between the lower extremities but significant allodynia on the left side. SKIN: Shows warm and dry, good turgor. No edema. No sores, rashes or bruising throughout. Procedure: Procedure: Options were discussed with patient. Patient's old chart was reviewed his his current medication regimen updated current review of systems updated today as well. We will proceed with a left lumbar sympathetic block today with fluoroscopic guidance. Risks were discussed including but not limited to: Bleeding, infection, possibility of epidural hematoma and subsequent neurological compromise, dural puncture, headaches, spinal cord and/or nerve damage, and poor results regarding pain control. Patient understands and wished to proceed. Patient will return to clinic in approximate 2 weeks for follow-up, was counseled as return appointment, activity level, and side effect to be aware of. Medication Injected: Med Injected: Patient in prone position under sterile prep and drape using C-arm fluoroscopic guidance patient's lumbar spine was identified and at the L3 vertebral body with oblique view to the left, local anesthetic was used to anesthetize the area over the anterior lateral aspect of the vertebral body of L3. Using a 5 inch 22- gauge spinal needle with stylette under direct fluoroscopic vision with both AP and lateral views the needle was advanced to contact the L3 vertebral body at the anterior lateral aspect. At this time 2 cc of contrast was injected showing good spread above and below at the anterior margin of the L3 vertebral body in both AP oblique and lateral views. After again confirmed negative aspiration, 10 cc 0.25% bupivacaine was injected incrementally with negative aspiration after every 2 cc injected for the entire volume. [place] withdrawn and sterile bandage was applied. Patient tolerated procedure well and had no immediate complications. Condition at Discharge: Condition at Discharge: Condition at discharge stable, paced tolerated procedure well and had no complications. RENATA WU MD Oct 15, 2021 12:09
== END | disposition home or self-care (01) ==
LOC: PNCL 10:32
PROVIDERS: ATTEND Anesthesiology
DX: G90.522 Complex regional pain syndrome I of left lower limb (principal); M51.16 Intervertebral disc disorders with radiculopathy, lumbar region; M96.1 Postlaminectomy syndrome, not elsewhere classified; M16.12 Unilateral primary osteoarthritis, left hip; K21.9 Gastro-esophageal reflux disease without esophagitis; E03.9 Hypothyroidism, unspecified; F17.210 Nicotine dependence, cigarettes, uncomplicated; Z96.652 Presence of left artificial knee joint; Z88.8 Allergy status to other drugs, medicaments and biological substances; Z79.899 Other long term (current) drug therapy; Z98.890 Other specified postprocedural states; Z82.49 Family history of ischemic heart disease and other diseases of the circulatory system
CPT/HCPCS: 64520; J3490; Q9965

== ENCOUNTER → 2021-10-29 | Outpatient (CLI) | payer OTHER ==
[~2021-10-29] MED LIST changes: -BUPIVACAINE MPF 0.25% 10 ML VIAL. ONE; +CHOL500050 PO; +HYDR-2761 PO; -IOHEXOL 180 MG/ML 10 ML VIAL. ONE; +ONDA4TAB12 PO
--- NOTE | 2021-10-29 12:45 | PDOC ---
Progress Note - Pain Clinic Date of Service: DOS: DATE: 10/29/21 TIME: 12:40 Diagnosis: Dx: Lumbar radiculopathy with lumbar degenerative disease and lumbar postlaminectomy syndrome Left knee joint pain with osteoarthritis Left knee joint pain with osteoarthritis status post total knee arthroplasty Complex regional pain syndrome left lower extremity History or Present Illness: HPI: 66-year-old male returns for follow-up status post left lumbar sympathetic block, with no significant reduction in pain in his left lower extremity status post total knee arthroplasty with some swelling and allodynia of the lower lower extremity in the knee and the lower leg. Patient reports still significant pain he is just seen his orthopedic surgeon who is planning a manipulation under anesthesia in the very near future as well. Patient reports he is having increased tingling and numbness and burning in his foot and has also some tingling in the right foot now as well. Patient reports no loss of motor function some significant fatigability ever with the left lower extremity and in the right leg as well patient report is radiating constant severe tingling burning cramping in the leg and knee sharp and aching in the knee tight and shooting is still sensitive to light touch on the left knee but is tolerable more now with more firm touch with manipulation of the knee. Patient rates pain a 6 on scale 10 is worse over the past week for an average 3 at its least and is a 6 today. Physical Exam: VS: Blood pressure is 139/86 pulse 80 respiration 16 temperature 98.2 F 189 pounds. PE: PHYSICAL EXAMINATION: GENERAL: The patient is awake, alert, oriented, appropriate, very pleasant in demeanor, patient accompanied by his . HEENT: Shows normocephalic, atraumatic. Extraocular movements are intact and symmetrical. Patient wearing eyeglasses. Oral cavity: Mucous membranes moist and pink. Dentition is intact. NECK: Shows anterior throat supple without palpable lymphadenopathy noted. Swallow reflex symmetrical. CHEST: Shows normal on inspection. Breath sounds are clear bilaterally. HEART: Shows S1, S2 clear. No murmurs auscultated. ABDOMEN: Soft, nontender, nondistended. No palpable organomegaly is noted. BACK: Shows spine grossly in the midline. Normal-appearing cervical lordotic curvature. There is slightly increased thoracic kyphosis, some flattening of the lumbar lordotic curvature with well-healed surgical scarring noted. Lumbar paraspinous muscles show symmetrical on inspection, on palpation shows some moderate tenderness diffusely throughout the upper, middle and lower distribution of the paraspinous muscles, but without specific trigger points, without radiation of pain. The patient has good rotational motion of the lumbar spine, both laterally as well as extension and flexion without significant difficulty. EXTREMITIES: Lower extremities show deep tendon reflexes 1+ in the patellar and tendo calcaneus tendons. Motor exam is 5 on a scale of 5 with right dorsiflexion, extension, quadriceps and hamstring flexion and 4/5 on the left. Peripheral pulses are 1+ posterior tibial. No peripheral edema is noted katie aterally. Well-healing surgical scar over the anterior aspect of the left knee. Lower extremities are warm and dry. SKIN: Shows warm and dry, good turgor. No edema. No sores, rashes or bruising throughout. Procedure: Procedure: Options were discussed with the patient. Patient's old chart was reviewed his current medication regimen updated current review of systems updated today as well. We will hold on any further injections at this time although we did discuss a lumbar epidural steroid injection as he had radicular patterns in both of his lower extremities right and left. Also, asked for patient to notify us when he is having his manipulation under anesthesia and we will discuss adding a spinal block to the anesthetic regimen with the anesthesiologist once it is scheduled. Patient understands and agrees and will follow up as scheduled. Medication Injected: Med Injected: None Condition at Discharge: Condition at Discharge: Condition at discharge is stable. RENATA WU MD October 29, 2021 12:45
== END | disposition home or self-care (01) ==
LOC: PNCL 11:07
PROVIDERS: ATTEND Anesthesiology
DX: M51.16 Intervertebral disc disorders with radiculopathy, lumbar region (principal); M96.1 Postlaminectomy syndrome, not elsewhere classified; M17.12 Unilateral primary osteoarthritis, left knee; G90.522 Complex regional pain syndrome I of left lower limb; K21.9 Gastro-esophageal reflux disease without esophagitis; E03.9 Hypothyroidism, unspecified; F17.210 Nicotine dependence, cigarettes, uncomplicated; Z79.899 Other long term (current) drug therapy; Z98.890 Other specified postprocedural states
CPT/HCPCS: 99212; G0463

== ENCOUNTER → 2021-11-01 | Outpatient (CLI) | payer OTHER, MEDICARE | LOC: LAB 13:28 | PROVIDERS: ATTEND Orthopaedic Surgery | DX: Z01.812 Encounter for preprocedural laboratory examination (principal); U07.1 COVID-19; L90.5 Scar conditions and fibrosis of skin | CPT/HCPCS: U0003 ==

== ENCOUNTER 2021-11-04 06:00 | Day surgery (SDC) | payer OTHER ==
[~2021-11-04] VITALS: Ht 180.3 cm; Wt 88.0 kg
[~2021-11-04 06:00] MED LIST changes: -CHOL500050 PO; -HYDR-2761 PO; +HYDROmorphone 2 MG/ML INJ. IVP PRN; +IV RINGERS,LACTATED 1000ML 1,000 ML IV SCH; +MORPHINE SULFATE 2 MG/ML INJ. IVP PRN; -ONDA4TAB12 PO; +PROCHLORPERAZINE 10 MG/2 ML VIAL. IVP PRN; +fentaNYL PF VIAL 100 MCG/2 ML VIAL IVP PRN
[2021-11-04 06:12] VITALS: BP 132/78
[2021-11-04] MEDS ORDERED: CHOL500050 PO (06:32)
[2021-11-04] MEDS ORDERED: MIDAZOLAM HCL/PF 2 MG/2 ML VIAL. ONE (07:07)
--- NOTE | 2021-11-04 07:45 | PDOC4 ---
OPERATIVE NOTE Date: Date: November 04, 2021 Pre-Op Diagnosis: 1. 66-year-old male history left total knee arthroplasty 2. Arthrofibrosis left knee Post-Op Diagnosis: Same Procedure Performed: 1. Manipulation under anesthesia left knee Surgeon: Gisel Anesthesia Type: Spinal/deep sedation Blood Loss: None Specimans Obtained: None Complications: Patient tolerated the procedure well without any complications. Operative Note: See dictation AMBER HANSEN November 04, 2021 07:45
[2021-11-04] MEDS ORDERED: ONDA4TAB12 PO (07:50)
[2021-11-04] MEDS ORDERED: HYDR-2761 PO (07:50)
--- NOTE | 2021-11-04 07:54 | DISCH ---
DISCHARGE INSTRUCTIONS Condition on Discharge Condition on Discharge: Stable Activity After Discharge Activity Instructions for Disc: No restrictions, Activity as tolerated Lifting Instructions after Dis: No heavy lifting, No pulling or pushing, Do not lift >10 pounds Exercise Instruction after Dis: Walk 10 min, 3 x per day, Exercise per therapy, Progress as tolerated Driving Instructions after Dis: Do not drive (while taking narcotic pain meds) Weight Bearing Status after Di: Full weight bearing Diet after Discharge Diet after Discharge: Regular Additional Diet Restrictions: resume home diet Diet Texture: Regular Liquid Texture: Thin Liquid Swallowing Supervision: None needed Wound Incision Care Wound/Incision Care: Ice to area for comfort, Do not change dressing Contacting the DRAngelica after DC Call your doctor for: Concerns you may have Follow-Up Follow up with: Follow-up in 1 week upon discharge in the hospital. Call to schedule. Treatment/Equipment after DC Adaptive Equipment Issued: None AMBER HANSEN November 04, 2021 07:54
[2021-11-04] MEDS ORDERED: HYDROcodone/APAP 5/325MG 1 TAB TABLET PO ONE (08:15)
--- NOTE | 2021-11-04 10:29 | OP ---
DATE OF SURGERY: 11/04/2021 PREOPERATIVE DIAGNOSIS: Adhesive capsulitis, left knee, status post left total knee arthroplasty. POSTOPERATIVE DIAGNOSIS: Adhesive capsulitis, left knee, status post left total knee arthroplasty. ANESTHESIA: Spinal with IV sedation. PROCEDURE: Manipulation under anesthesia, left knee. COMPLICATIONS: No complications. SURGEON: Wong Batres Jr, DO DESCRIPTION OF PROCEDURE: The patient was taken to the operative suite after given a spinal anesthetic, some deep IV sedation and a slow manipulation was undertaken of that left knee. He was brought from full extension gently through 90 where he had some adhesions, very slowly breaking through the adhesions back to obtain 120 degrees of flexion of the knee that was near the opposite uninvolved side. Therefore, the patient was taken from the operative bed to the postoperative bed, taken to the PACU in stable condition. AARON/TIFFANIE DR: Tolu TID: [id number]
[2021-11-04 14:15] VITALS: BP 114/74
== END 2021-11-04 14:24 | disposition home or self-care (01) ==
LOC: SURG 06:00
PROVIDERS: ATTEND Orthopaedic Surgery
DX: M75.02 Adhesive capsulitis of left shoulder (principal); M24.662 Ankylosis, left knee; K21.9 Gastro-esophageal reflux disease without esophagitis; M19.90 Unspecified osteoarthritis, unspecified site; E03.9 Hypothyroidism, unspecified; F17.210 Nicotine dependence, cigarettes, uncomplicated; Z79.899 Other long term (current) drug therapy; Z98.890 Other specified postprocedural states; Z96.652 Presence of left artificial knee joint; Z88.8 Allergy status to other drugs, medicaments and biological substances
CPT/HCPCS: 27570; C1755; J2250